=== PATIENT | female | born 1955 | race Two or more races ===

== ENCOUNTER 2018-08-02 12:19 | Day surgery (SDC) | payer OTHER ==
[2018-08-02 12:43] VITALS: BMI 27.2
[2018-08-02] MEDS ORDERED: ACETAMINOPHEN 325 MG TABLET (FP) PO PRN (14:01)
[2018-08-02] MEDS ORDERED: LIDOCAINE HCL 1%, 10 MG/ML (20ML VIAL) ONE (15:38)
[2018-08-02] MEDS ORDERED: MIDAZOLAM HCL 2 MG/2 ML SINGLE DOSE VIAL ONE (15:39)
[2018-08-02] MEDS ORDERED: PROPOFOL 20 ML ONE ×2 (15:39→16:50)
[2018-08-02] MEDS ORDERED: ceFAZolin SODIUM 1 GM VIAL ONE (16:04)
[2018-08-02] MEDS ORDERED: ceFAZolin SODIUM 1 GM VIAL IVPB ONE (16:07)
[2018-08-02] MEDS ORDERED: LIDOCAINE HCL 1%, 10 MG/ML (20ML VIAL) INF ONE (16:27)
--- NOTE | 2018-08-02 17:16 | OP ---
Operative Note - Note: Operative Date: 08/02/18 Pre-Operative Diagnosis: neurogenic bladder Operation: medronics bladder neurostimulator placement Implants: medronics bladder stimulator and lead Post-Operative Diagnosis: Same as Pre-op Anesthesia: Local, Fractional Estimated Blood Loss (mls): 20 Drains, Volume Out (mls): 0 Blood Volume Replaced (mls): 0 Fluid Volume Replaced (mls): 0 Operative Report Dictated: Yes
[2018-08-02] MEDS ORDERED: ONDANSETRON 4 MG/2 ML VIAL IVPUSH PRN (17:17)
[2018-08-02] MEDS ORDERED: oxyCODONE HCL 5 MG TABLET PO PRN (17:17)
[2018-08-02] MEDS ORDERED: LACTATED RINGERS SOLUTION 1,000 ML IV SCH (17:30)
[2018-08-02] MEDS ORDERED: ACETAMINOPHEN 1000 MG/100 ML VIAL (NON FORMULARY) IVPB ONE ×2 (17:45→19:00)
[2018-08-02] MEDS ORDERED: ACETAMINOPHEN INJECTION 100 ML IVPB ONE (17:49)
[2018-08-02 18:24] VITALS: PULSE 89
[2018-08-02 19:30] VITALS: BP 138/70; TEMP 98
--- NOTE | 2018-08-02 20:09 | HP ---
DATE OF ADMISSION: 08/02/2018 Patient is a 62-year-old female with history of micturition disorder including frequency, urgency, urgency incontinence, nocturia, hesitancy, and stranguria. Patient underwent an urodynamic evaluation which revealed a spastic type of neurogenic bladder. She did have a peripheral nerve stimulation placement in the office, and after 2 weeks, she had significant improvement. Therefore, she is admitted for permanent implantation of a sacral neurostimulator. The patient does have diabetes and high blood pressure. She has undergone a cholecystectomy as well as an appendectomy. She denies ethanolism, tobacco, or allergies. She is G4, P4, postmenopausal. Presently, the patient is on Paxil as well as gabapentin and Januvia medications. PHYSICAL EXAMINATION: General: Revealed a well-developed, adult female in no apparent distress. Lungs: Clear. Heart: Regular. Abdomen: Soft. No CVA tenderness. No hepatosplenomegaly. Genitalia: Revealed atrophic vaginitis with a grade 1 cystocele/rectocele. Miguel test is negative. No pelvic masses were palpated. IMPRESSION AT PRESENT: Micturition disorder with urinary frequency, urgency, and hesitancy. PLAN: Is for sacral nerve stimulator implantation. Patient is aware and agrees. Lidia [id number]
--- NOTE | 2018-08-02 21:40 | OP ---
DATE OF OPERATION: 08/02/2018 PREOPERATIVE DIAGNOSES: Micturition disorder, neurogenic bladder. POSTOPERATIVE DIAGNOSES: Micturition disorder, neurogenic bladder. OPERATIVE PROCEDURE: Implantation of sacral nerve stimulation battery and lead, as per [employer]. ANESTHESIA: Fractional and local. Under fractional anesthesia, the patient was placed in the prone position. After proper measurements, sacral root 2 was isolated and a cannula was placed through the sacral nerve root. After proper stimulation and positive toe-twitching and positive sign, a pocket was made in the right supragluteal region of the lower back. This was approximately 6 cm in transverse length and 4 cm in depth. The lead, which was implanted into sacral root 2, was subcutaneously tunneled to the area of the pocket. The lead was then connected to the battery and the battery was inserted inside the supragluteal pocket. The wound was irrigated with antibiotic solution and closed with 2 layers of 3-0 Vicryl suture ligature and skin ladi. Pressure dressing was applied. The patient tolerated the procedure well. She returned to the recovery room in good condition. Lidia [id number]
== END 2018-08-02 19:30 | disposition home or self-care (01) ==
LOC: JASU-SURG 12:19
PROVIDERS: ATTEND Urology
PROC: 01HY0MZ Insertion of Neurostimulator Lead into Peripheral Nerve, Open Approach (ICD-10-PCS; 2018-08-02)
PROC: 0JH70BZ Insertion of Single Array Stimulator Generator into Back Subcutaneous Tissue and Fascia, Open Approach (ICD-10-PCS; principal; 2018-08-02 14:00)
DX: N39.41 Urge incontinence (principal); N31.9 Neuromuscular dysfunction of bladder, unspecified; R35.0 Frequency of micturition
CPT/HCPCS: 64581; 64590; C1767; C1778; 82962; 94760; J0131

== ENCOUNTER 2019-09-26 14:40 | Inpatient (IN) | payer OTHER ==
--- NOTE | 2019-09-26 14:54 | PDOC ---
*Physical Exam - Physical Exam General Appearance: Yes: Nourished, Appropriately Dressed HEENT: positive: Normal Voice, Hearing Grossly Normal Neck: positive: Trachea midline, Supple Respiratory/Chest: positive: Lungs Clear Cardiovascular: positive: Tachycardia Gastrointestinal/Abdominal: positive: Normal Bowel Sounds, Soft, Other (epigastric TTP). 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 Back (PGY-I) and Dr. Rich (Attending) 64 y/o female with a PMH of HTN, IDDM here with 2 day h/o abdominal pain. Pain is epigastric, post prandial associated with NBNB emesis H/o cholecystectomy. No dysuria/hematuria, diarrhea/constipation, fevers/chills. Patient was evaluated by PMD, Dr. Moss this morning and reports CXR with changes concerning for COVID-19 PE as documented in PE section of EMR including Tachycardic to 140's and epigastric TTP w/o peritoneal sign Frontal diagnosis: PUD/GERD, r/o ACS, also consider acute abdomen including early appendicitis, colitis, bowel perforation, SBO Will obtain CTAP, chest CT (patient's PMD reports CXR w/COVID like changes), COVID-19 labs. IV fluids + rectal temp pending Reassess. 09/26/19 16:12 Leukocytosis (20) - will treat with broad spectrum Abx as infectious source pending Lactic Acidosis 2.2 PO K+ replacement UA clean VSS 09/26/19 18:29 [address]; will plan for admission - labs possibly indicative of COVID-19 (CRP, leukocytosis), however also consider unrelated abdominal pathology Patient to be signed out to Dr. Diaz (Attending) for further management. Discharge - Discharge Information Problems reviewed: Yes Clinical Impression/Diagnosis: Epigastric pain, Dehydration Condition: Fair - Follow up/Referral Referrals: Juni Moss MD [Primary Care Provider] - - Patient Discharge Instructions - Post Discharge Activity
[2019-09-26] MEDS ORDERED: LACTATED RINGERS SOLUTION 1,000 ML/1,000 ML INFUS.BAG IV STA (15:02)
[2019-09-26] MEDS ORDERED: MAG HYDROX/AL HYDROX/SIMETH 30 ML UNIT-DOSE CUP PO ONE (15:04)
[2019-09-26] MEDS ORDERED: FAMOTIDINE 20 MG/50 ML IVPB 20 MG/50 ML MG IVPB ONE ×2 (15:04→17:18)
--- NOTE | 2019-09-26 15:10 | PDOC ---
History of Present Illness - General Chief Complaint: Tachycardia Stated Complaint: Tachycardia Time Seen by Provider: 09/26/19 15:04 History Source: Patient - History of Present Illness Initial Comments: 09/26/19 15:11 64F w/hx HTN, DM BIBEMS from physician office (Dr. Juni Moss) after heart rate was found to be in the 140s. She reports two days of acute onset nausea, vomiting, epigastric pain. 8/10 cramping, localized to anterior epigastric area, worsens postprandial. She reports difficulty tolerating po due to nausea, worsening of pain with po intake. She reports lightheadedness last night that have since resolved. She denies any weakness, palpitations, chest pain, sob, confusion. She reports x2 nbnb vomiting today. Remote hx cholecystectomy. Past History - Medical History Allergies/Adverse Reactions: Allergies Allergy/AdvReac Type Severity Reaction Status Date / Time No Known Drug Allergies Allergy Verified 08/02/18 12:32 Home Medications: Ambulatory Orders Acyclovir [Zovirax -] 400 mg PO BID 02/08/15 Amitriptyline HCl [Elavil -] 10 mg PO DAILY 02/08/15 Gabapentin 600 mg PO TID 02/08/15 Insulin (Levemir) [Levemir Flexpen -] 45 units SQ BID 02/08/15 Insulin Aspart [Novolog] 0 unit SQ ASDIR 02/08/15 Meloxicam [Mobic (Nf) -] 15 mg PO DAILY 02/08/15 Paroxetine HCl 40 mg PO DAILY 02/08/15 Tofacitinib Citrate [Xeljanz] 5 mg PO DAILY 02/08/15 Upadacitinib [Rinvoq ER] 15 mg PO DAILY 09/27/19 Anemia: No Asthma: No Cancer: No Cardiac Disorders: No CVA: Yes (NO RESIDULA) COPD: No CHF: No Dementia: No Diabetes: Yes GI Disorders: Yes (REFLUX, CONSTIPATION) Disorders: Yes (INCONTINENCE, S/P BLADDER LIFT) HTN: No Hypercholesterolemia: Yes Liver Disease: No Seizures: No Thyroid Disease: No - Surgical History Abdominal Surgery: No Appendectomy: Yes Cardiac Surgery: No Cholecystectomy: Yes Lung Surgery: No Neurologic Surgery: No Orthopedic Surgery: No - Psycho-Social/Smoking History Smoking History: Never smoked Have you smoked in the past 12 months: No Information on smoking cessation initiated: No - Substance Abuse Hx (Audit-C & DAST Scrn) How often the patient has a drink containing alcohol: Never Score: In Men: 4 or > Positive; In Women: 3 or > Positive: 0 Screen Result (Pos requires Nsg. Audit-10AR): Negative In the last yr the pt used illegal drug/Rx for NonMed reason: No Score: Yes response is considered Positive: 0 Screen Result (Positive result requires Nsg. DAST-10): Negative Review of Systems - Review of Systems Able to Perform ROS?: Yes Comments:: 09/26/19 15:26 GENERAL/CONSTITUTIONAL: No fever or chills. No weakness. HEAD, EYES, EARS, NOSE AND THROAT: No change in vision. No ear pain or dischar ge. No sore throat. CARDIOVASCULAR: No chest pain or shortness of breath RESPIRATORY: No cough, wheezing, or hemoptysis. GASTROINTESTINAL: Nausea, vomiting, abdominal pain. No diarrhea or constipation. GENITOURINARY: No dysuria, frequency, or change in urination. MUSCULOSKELETAL: No joint or muscle swelling or pain. No neck or back pain. SKIN: No rash NEUROLOGIC: No headache, vertigo, loss of consciousness, or change in strength/sensation. ENDOCRINE: No increased thirst. No abnormal weight change HEMATOLOGIC/LYMPHATIC: No anemia, easy bleeding, or history of blood clots. ALLERGIC/IMMUNOLOGIC: No hives or skin allergy. *Physical Exam - Vital Signs Last Vital Signs Temp Pulse Resp BP Pulse Ox 98.9 F 144 H 19 124/80 100 09/26/19 14:44 09/26/19 14:44 09/26/19 14:44 09/26/19 14:44 09/26/19 14:44 - Physical Exam 09/26/19 15:26 GENERAL: Awake, alert, and fully oriented, in no acute distress HEAD: No signs of trauma, normocephalic, atraumatic EYES: PERRLA, EOMI, sclera anicteric, conjunctiva clear ENT: Auricles normal inspection, hearing grossly normal, nares patent, eusebio pharynx clear without exudates. Moist mucosa NECK: Normal ROM, supple, no lymphadenopathy, JVD, or masses LUNGS: No distress, speaks full sentences, clear to auscultation bilaterally HEART: Tachycardic. Regular rhythm, normal S1 and S2, no murmurs, rubs or gallops, peripheral pulses normal and equal bilaterally. ABDOMEN: Generalized mild tenderness, worse in epigastrum. Normoactive bowel sounds. No guarding, no rebound. No masses EXTREMITIES : Normal inspection, Normal range of motion, no edema. No clubbing or cyanosis NEUROLOGICAL: Cranial nerves II through XII grossly intact. Normal speech, normal gait, no focal sensorimotor deficits SKIN: Warm, Dry, normal turgor, no rashes or lesions noted ED Treatment Course - LABORATORY CBC & Chemistry Diagram: 09/29/19 06:10 09/29/19 06:10 Medical Decision Making - Medical Decision Making 09/26/19 16:13 64F w/hx HTN, DM p/w two days of chills, nausea, vomiting, epigastric pain/tenderness, found to be tachycardic to 140s by PCP, sinus tach on our EKG. Ddx GERD/PUD, ACS, pancreatitis. Dehydration likely cause of tachycardia. Plan: CBC CMP EKG CXR Lipase Cardiac profile Blood cultures CT abdomen/pelvis w/contrast CT Chest pepcid maalox 1L LR Dispo: Pending imaging, reassessment Discharge - Discharge Information Problems reviewed: Yes Clinical Impression/Diagnosis: UTI (urinary tract infection), Sepsis Condition: Fair - Follow up/Referral - Patient Discharge Instructions - Post Discharge Activity
[2019-09-26 16:04] LABS: BASO % 0.2 % (0-2.0); EOS % 0.1 % (0-4.5); HEMATOCRIT 39.5 % (32.4-45.2); HEMOGLOBIN 13.1 GM/dL (10.7-15.3); LYMPH % 3.2 % (8-40); MCH 30.5 pg (25.7-33.7); MCHC 33.1 g/dl (32.0-36.0); MEAN CELL VOLUME 92.1 fl (80-96); MEAN PLT VOLUME 9.2 fl (7.5-11.1); MONO % 4.9 % (3.8-10.2); NEUT % 91.6 % (42.8-82.8); PLATELET COUNT 264 K/MM3 (134-434); RBC 4.28 M/mm3 (3.60-5.2); RDW 16.1 % (11.6-15.6); WHITE BLOOD COUNT 20.5 K/mm3 (4.0-10.0)
[2019-09-26 16:10] LABS: INR 1.06 (0.83-1.09); PROTHROMBIN TIME (PATIENT) 12.5 SEC (9.7-13.0)
[2019-09-26 16:12] LABS: VENOUS BASE EXCESS -3.5 mmol/L (-2-2); VENOUS PC02 36.1 mmHg (38-52); VENOUS PH 7.38 (7.31-7.41); VENOUS PO2 < 49 mmHg (28-48)
[2019-09-26 16:13] LABS: ACTIVATED PTT 28.1 SECONDS (25.2-36.5)
--- NOTE | 2019-09-26 16:18 | PDOC ---
Attending Attestation - Resident Resident Name: Anamaria Backan - ED Attending Attestation I have performed the following: I have examined & evaluated the patient, The case was reviewed & discussed with the resident, I agree w/resident's findings & plan - HPI HPI: 09/26/19 16:11 64y/o HTN, IDDM, h/o ita sent from Dr. Moss office after found tachycardic in setting of 3d progressive epigastric pain wth n/v. Pt reports 3d post- prandial upper abdominal pain associated with nausea and nonbloody emesis, chills but no fever, dark stool but no diarrhea/constipation. no chest pain/sob, + palpitations and light headedness. no complaints. no recent diet change, no travel, no leg swelling. no h/o recurring GI issues, had EGD and c-scope within last year, reportedly normal - Physicial Exam PE: 09/26/19 16:14 tachycardia, BP stable, o2 100% room air dry mucosa, no jaundice/pallor neck supple. conversant, nad s1s2 reg tachy ctab abd distended but soft, epigastric tenderness without guarding/rebound. BS wnl. no cvat no edema no rash POCUS echo without effusion or RV strain, hyperdynamic - Critical Care Time Total Critical Care Time: 30 Critical Care Statement: The care of this patient involved high complexity decision making to prevent further life threatening deterioration of the patient's condition and/or to evaluate & treat vital organ system(s) failure or risk of failure. - Medical Decision Making 09/26/19 16:15 64y/o F HTN, DM with post-prandial epigastric pain for 3d, now with tachycardia likely 2/2 dehydration, r/o sepsis. ? pancreatitis/gastritis, ? mesenteric ischemia, less likely primary cardiac, low clinical suspicion for PE but reassess tachycardia after hydration. labs, ua ekg ct chest/abd/pel iv fluid rehydration pain control reassess and likely admission 09/26/19 16:26 leukocytosis 20. remaining labs and imaging pending. Heart Score/ECG Review #1 ECG reviewed & interpreted by me at: 15:00 General ECG Interpretation: Sinus Rhythm (tachy at 142), Normal Intervals (qtc 446), No acute ischemic changes Discharge - Discharge Information Problems reviewed: Yes Clinical Impression/Diagnosis: Epigastric pain, Dehydration Condition: Fair - Follow up/Referral Referrals: Juni Moss MD [Primary Care Provider] - - Patient Discharge Instructions - Post Discharge Activity
[2019-09-26 16:43] LABS: LDH 188 U/L (84-246)
[2019-09-26 16:44] LABS: ALBUMIN 3.9 g/dl (3.4-5.0); ALK PHOS 143 U/L (45-117); ANION GAP 11 MMOL/L (8-16); BILIRUBIN,DIRECT 0.2 mg/dL (0.0-0.2); BILIRUBIN,TOTAL 0.6 mg/dL (0.2-1); BLOOD UREA NITROGEN 11.1 mg/dL (7-18); CALCIUM 8.8 mg/dL (8.5-10.1); CHLORIDE 100 mmol/L (98-107); CO2 23 mmol/L (21-32); CREATININE 0.8 mg/dL (0.55-1.3); GLUCOSE,RANDOM 180 mg/dL (74-106); POTASSIUM 3.4 mmol/L (3.5-5.1); SGOT/AST 16 U/L (15-37); SGPT/ALT 25 U/L (13-61); SODIUM 134 mmol/L (136-145); TOT PROT 7.9 g/dl (6.4-8.2)
[2019-09-26] MEDS ORDERED: MAG HYDROX/AL HYDROX/SIMETH 30 ML UNIT-DOSE CUP ONE (17:18)
[2019-09-26] MEDS ORDERED: ACETAMINOPHEN 1000 MG/100 ML VIAL (NON FORMULARY) IVPB ONE (17:41)
[2019-09-26 18:01] LABS: LIPASE 82 U/L (73-393)
[2019-09-26 18:19] LABS: URINE APPEARANCE CLEAR; URINE BILIRUBIN NEGATIVE (NEGATIVE); URINE COLOR YELLOW; URINE GLUCOSE (UA) NEGATIVE (NEGATIVE); URINE KETONE NEGATIVE (NEGATIVE); URINE LEUK ESTERASE TRACE (NEGATIVE); URINE NITRITE NEGATIVE (NEGATIVE); URINE PROTEIN NEGATIVE (NEGATIVE)
[2019-09-26] MEDS ORDERED: VANCOMYCIN HCL 1,500 MG in DEXTROSE 5%-WATER - 500 ML IVPB ONE (18:34)
[2019-09-26] MEDS ORDERED: POTASSIUM CHLORIDE ORAL LIQUID 20 MEQ/15 ML PO ONE (18:36)
[2019-09-26] MEDS ORDERED: PIPERACILLIN/TAZOB 4.5 GM 4.5 GM in DEXTROSE 5%-WATER 100 ML IVPB ONE (18:38)
[2019-09-26] MEDS ORDERED: POTASSIUM CHLORIDE ORAL LIQUID 20 MEQ/15 ML ONE (18:57)
[2019-09-26] MEDS ORDERED: ACETAMINOPHEN INJECTION 100 ML IVPB ONE (18:57)
[2019-09-26 19:05] LABS: EPI CELLS 2.6 /uL (0-25.1); URINE BACTERIA 41691.7 /uL (0-1359); URINE WBC 17.4 /uL (0-25.8)
--- NOTE | 2019-09-26 19:19 | PDOC ---
ED Treatment Course - LABORATORY CBC & Chemistry Diagram: 09/29/19 06:10 09/29/19 06:10 - Medications Given in the ED: ED Medications Discontinued Medications Generic Name Dose Route Start Last Admin Trade Name Christopher PRN Reason Stop Dose Admin Acetaminophen 1,000 mg 09/26/19 17:41 09/26/19 19:11 Ofirmev Injection - IVPB 09/26/19 17:42 1,000 mg ONCE ONE Administration Al Hydroxide/Mg Hydroxide 30 ml 09/26/19 15:04 09/26/19 17:10 Mylanta Oral Suspension - PO 09/26/19 15:05 30 ml ONCE ONE Administration Lactated Ringer's 1,000 ml in 1,000 mls @ 1,000 mls/hr 09/26/19 15:02 09/26/19 15:05 Lactated Ringers Solution IV 09/26/19 16:01 1,000 mls/hr ONCE STA Administration Famotidine/Sodium Chloride 20 mg in 50 mls @ 100 mls/hr 09/26/19 15:04 09/26/19 17:10 Pepcid 20 Mg Premixed Ivpb - IVPB 09/26/19 15:33 100 mls/hr ONCE ONE Administration Medical Decision Making - Medical Decision Making Pt signed out from day team, see prior providers note. 64 year old female with PMH HTN, DM BIBA to ED for nausea/vomiting/epigastric pain, found to be tachycardic at outpatient office, sent to ED for evaluation. Initial Vital Signs Pulse Resp BP Pulse Ox 144 H 19 124/80 99 09/26/19 14:41 09/26/19 14:41 09/26/19 14:41 09/26/19 14:41 Laboratory Last Values WBC 20.5 K/mm3 (4.0-10.0) H 09/26/19 15:40 RBC 4.28 M/mm3 (3.60-5.2) 09/26/19 15:40 Hgb 13.1 GM/dL (10.7-15.3) 09/26/19 15:40 Hct 39.5 % (32.4-45.2) 09/26/19 15:40 MCV 92.1 fl (80-96) 09/26/19 15:40 MCH 30.5 pg (25.7-33.7) 09/26/19 15:40 MCHC 33.1 g/dl (32.0-36.0) 09/26/19 15:40 RDW 16.1 % (11.6-15.6) H 09/26/19 15:40 Plt Count 264 K/MM3 (134-434) 09/26/19 15:40 MPV 9.2 fl (7.5-11.1) 09/26/19 15:40 Absolute Neuts (auto) 18.8 K/mm3 (1.5-8.0) H 09/26/19 15:40 Neutrophils % 91.6 % (42.8-82.8) H 09/26/19 15:40 Neutrophils % (Manual) 87.9 % (42.8-82.8) H 09/26/19 15:40 Band Neutrophils % 0.0 % 09/26/19 15:40 Lymphocytes % 3.2 % (8-40) L 09/26/19 15:40 Lymphocytes % (Manual) 3.0 % (8-40) L 09/26/19 15:40 Monocytes % 4.9 % (3.8-10.2) 09/26/19 15:40 Monocytes % (Manual) 7 % (3.8-10.2) 09/26/19 15:40 Eosinophils % 0.1 % (0-4.5) 09/26/19 15:40 Eosinophils % (Manual) 1.0 % (0-4.5) 09/26/19 15:40 Basophils % 0.2 % (0-2.0) 09/26/19 15:40 Basophils % (Manual) 0.0 % (0-2.0) 09/26/19 15:40 Myelocytes % (Man) 0 % (0-2) 09/26/19 15:40 Promyelocytes % (Man) 0 % (0-2) 09/26/19 15:40 Blast Cells % (Manual) 0 % (0-0) 09/26/19 15:40 Nucleated RBC % 0 % (0-0) 09/26/19 15:40 Metamyelocytes 0 % (0-2) 09/26/19 15:40 PT with INR 12.50 SEC (9.7-13.0) 09/26/19 15:40 INR 1.06 (0.83-1.09) 09/26/19 15:40 PTT (Actin FS) 28.1 SECONDS (25.2-36.5) 09/26/19 15:40 VBG pH 7.38 (7.31-7.41) 09/26/19 15:40 POC VBG pCO2 36.1 mmHg (38-52) L 09/26/19 15:40 POC VBG pO2 < 49 mmHg (28-48) H 09/26/19 15:40 VBG HCO3 20.9 mmol/L (23-29) L 09/26/19 15:40 VBG O2 Sat (Victoriano) 47.8 % (70-80) L 09/26/19 15:40 VBG Base Excess -3.5 mmol/L (-2-2) L 09/26/19 15:40 Sodium 134 mmol/L (136-145) L 09/26/19 15:40 Potassium 3.4 mmol/L (3.5-5.1) L 09/26/19 15:40 Chloride 100 mmol/L (98-107) 09/26/19 15:40 Carbon Dioxide 23 mmol/L (21-32) 09/26/19 15:40 Anion Gap 11 MMOL/L (8-16) 09/26/19 15:40 BUN 11.1 mg/dL (7-18) 09/26/19 15:40 Creatinine 0.8 mg/dL (0.55-1.3) 09/26/19 15:40 Est GFR (CKD-EPI)AfAm 90.30 09/26/19 15:40 Est GFR (CKD-EPI)NonAf 77.91 09/26/19 15:40 POC Glucometer 193 UNITS (80-120) 09/26/19 15:10 Random Glucose 180 mg/dL (74-106) H 09/26/19 15:40 Lactic Acid 2.2 mmol/L (0.4-2.0) H* 09/26/19 15:40 Calcium 8.8 mg/dL (8.5-10.1) 09/26/19 15:40 Ferritin 10.4 ng/ml (8-388) 09/26/19 15:40 Total Bilirubin 0.6 mg/dL (0.2-1) 06/16/20 15:40 Direct Bilirubin 0.2 mg/dL (0.0-0.2) 09/26/19 15:40 AST 16 U/L (15-37) 09/26/19 15:40 ALT 25 U/L (13-61) 09/26/19 15:40 Alkaline Phosphatase 143 U/L (45-117) H 09/26/19 15:40 LD Total 188 U/L (84-246) 09/26/19 15:40 Creatine Kinase 135 U/L (26-192) 09/26/19 15:40 Troponin I < 0.02 ng/ml (0.00-0.05) 09/26/19 15:40 C-Reactive Protein 0.4 MG/DL (0.00-0.3) H 09/26/19 15:40 Total Protein 7.9 g/dl (6.4-8.2) 09/26/19 15:40 Albumin 3.9 g/dl (3.4-5.0) 09/26/19 15:40 Lipase 82 U/L (73-393) 09/26/19 15:40 Urine Color Yellow 09/26/19 17:20 Urine Appearance Clear 09/26/19 17:20 Urine pH 6.0 (5.0-8.0) 09/26/19 17:20 Ur Specific Marshall 1.005 (1.010-1.035) L 09/26/19 17:20 Urine Protein Negative (NEGATIVE) 09/26/19 17:20 Urine Glucose (UA) Negative (NEGATIVE) 09/26/19 17:20 Urine Ketones Negative (NEGATIVE) 09/26/19 17:20 Urine Blood Negative (NEGATIVE) 09/26/19 17:20 Urine Nitrite Negative (NEGATIVE) 09/26/19 17:20 Urine Bilirubin Negative (NEGATIVE) 09/26/19 17:20 Urine Urobilinogen 1.0 mg/dL (0.2-1.0) 09/26/19 17:20 Ur Leukocyte Esterase Trace (NEGATIVE) 09/26/19 17:20 Urine WBC (Auto) 17.4 /uL (0-25.8) 09/26/19 17:20 Urine RBC (Auto) 2.0 /uL (0-23.9) 09/26/19 17:20 U Epithel Cells (Auto) 2.6 /uL (0-25.1) 09/26/19 17:20 Urine Bacteria (Auto) 99298.7 /uL (0-1359) 09/26/19 17:20 Leukocytosis with left shift -Pt was given Vanco/Zosyn No anemia. pH normal. Mild hyponatremia, hypokalemia. -IVF given Lactic acidosis -IVF given -Repeat after fluid bolus AST/ALT normal Troponin undetectable UTI 09/26/19 20:01 Laboratory Tests 09/26/19 09/26/19 15:40 19:00 Lactic Acid 2.2 H* 2.2 H* Pt had only received 1L NS when second lactate was drawn. 1L LR was ordered after this was sent off. 09/26/19 20:28 CT report: Top of Form 1 Bottom of Form [address] ABDOMEN & PELVIS CT WITH CONTR Show Printer-Friendly Version Patient Name: Sarkis Jacobs : 1955 ID: [id number] Study Date: 26-Sep-2019 18:34 [facility] Name: SARKIS JACOBS DEPARTMENT OF RADIOLOGY Phys: Mehrdad Back RESIDENT : 1955 Age: 64 Sex: F [facility] Acct: [id number] Loc: [address] Exam Date: 09/26/19 Status: DONOVAN [id number] [id number] Unit Number: [id number] EXAM#: TYPE/EXAM: RESULT: CT/ABDOMEN PELVIS CT WITH CONTR CT/CHEST CT WITH CONTRAST CHEST CT without contrast Clinical information given: epigastric abdominal pain Multiplanar imaging was performed following the intravenous administration of nonionic contrast. Patchy infiltrates are seen within the right upper lobe anterior segment as well as within the right middle lobe medial and lateral segments. No pleural effusion is noted. A small right basilar pulmonary calcification is noted probably representing a granuloma. A small to moderate hiatal hernia has developed in comparison to a 2009 CT exam. There is no definite cardiac enlargement. No pericardial effusion is seen. No definite lymphadenopathy is identified. The trachea and central bronchi demonstrate no obvious pathology. There is no aortic aneurysm. A 0.8 cm nodule is visualized within the left thyroid lobe posteriorly. This finding is difficult to visualize on the previous exam which was performed without intravenous contrast. IMPRESSION: Right upper and middle lobe infiltrates are noted - ? bacterial pneumonitis versus atypical appearance of COVID-19 pneumonitis. Small to moderate hiatal hernia. A 0.8 cm left lower lobe nodule is noted posteriorly. Sonographic correlation is suggested. ABDOMEN AND PELVIS CT with intravenous contrast Clinical information given: epigastric abdominal pain, nausea, elevated white blood count Multiplanar imaging was performed following the intravenous administration of nonionic contrast. Enteric contrast was not administered. No evidence of pneumoperitoneum, abscess, free intraperitoneal fluid or bowel obstruction. What appears to represent the appendix demonstrates a mildly thickened appear ance adjacent to the inferior border of the cecum (transaxial images 112 - 117). No definite periap pendiceal edema fluid is identified. No prior abdomen/pelvic CT exam is available at this facility for direct comparison. Colonic diverticulosis is seen without definite evidence of acute diverti culitis. No gross small bowel pathology is noted allowing for lack of intraluminal contrast. An approximately 0.8 x 0.4 cm calcification is seen along the left periurethral region and probably less likely within the urethra itself (transaxial images 147 - 150). The urinary bladder is mildly overdistended. There is probable diffuse fatty infiltration of the liver. Status post cholecystectomy as on a chest CT exam performed in 2009. Also as on the 2010 CT exam a small amount of pneumobilia is seen which is apparently postprocedural in nature. The spleen, pancreas, adrenal glands and kidneys demonstrate no discrete pathology. There is no aortic aneurysm. No definite lymphadenopathy is noted on the basis of size. An InterStim device is seen traversing the right sacrum. IMPRESSION: No definite CT pathology is noted within the upper abdomen. There is possible mild appendiceal thickening without CT evidence of acute appendicitis at this time. Correlate clinically. Direct comparison with previous CT exams would be quite helpful available from a different facility. Surgical consultation is suggested, nonemergent unless otherwise clinically indicated. Status post cholecystectomy. A small amount of pneumobilia is seen which is presumably postprocedural in nature. Colonic diverticulosis is noted without evidence of acute diverticulitis. A 0.8 x 0.4 cm left periurethral calcification is noted, less likely being located within the urethra itself. Correlate clinically. There is mild urinary bladder overdistention which may be physiologic in nature versus secondary to mild/early retention. If clinically indicated correlate with pre and post void sonography. Probable diffuse hepatic steatosis. A pelvic InterStim device is seen in place. Reported By: Teja Blackman MD 09/26/192022 Mehrdad Back RESIDENT Technologist: Jareth Collins Transcribed Date/Time: 09/26/192022 Apprenticeship Consultant: Teja Blackman Printed Date/Time: By: Signed by: Teja Blackman Signed on: 26-Sep-2019 20:24 Surgery consult placed for appendix thickening. 09/26/19 20:31 Dr. Chambers paged. Discharge - Discharge Information Problems reviewed: Yes Clinical Impression/Diagnosis: UTI (urinary tract infection), Sepsis Condition: Fair - Admission Yes - Follow up/Referral - Patient Discharge Instructions - Post Discharge Activity
[2019-09-26] MEDS ORDERED: LACTATED RINGERS SOLUTION 1000 ML INFUS.BAG IV ONE (19:20)
[2019-09-26] MEDS ORDERED: PIPERACILLIN/TAZOB 4.5 GM 4.5 GM/100 ML BAG IVPB ONE (19:22)
[2019-09-26] MEDS ORDERED: ACETAMINOPHEN 325 MG TABLET (FP) PO PRN (23:54)
[2019-09-27] MEDS ORDERED: ACETAMINOPHEN 1000 MG/100 ML VIAL (NON FORMULARY) IVPB PRN (00:33)
[2019-09-27] MEDS: DEXTROSE 5%-0.45% SALINE 1,000 ML IV SCH (00:44)
[2019-09-27] MEDS: MORPHINE SULFATE 2 MG/ML VIAL IVPUSH PRN ×3 (00:58→17:24)
[2019-09-27] MEDS ORDERED: DEXTROSE 5%-WATER - 50 ML IVPB ONE ×3 (02:32→17:04)
[2019-09-27] MEDS ORDERED: PIPERACILLIN/TAZOBACTAM 3.375 GM VIAL IVPB ONE ×3 (02:32→17:04)
[2019-09-27] MEDS: PIPERACILLIN/TAZOB 3.375 GM 3.375 GM in DEXTROSE 5%-WATER - 50 ML IVPB SCH ×4 (03:09→17:24)
[2019-09-27] MEDS: GABAPENTIN 300 MG CAPSULE PO SCH ×4 (05:41→21:18)
[2019-09-27] MEDS ORDERED: PATIENT'S OWN MEDICATION (NON-FORMULARY) (Gabapentin [Gabapentin] 600 MG) PO SCH (06:00)
[2019-09-27] MEDS: INSULIN SLIDING SCALE (NOVOLOG) 1 VIAL SQ SCH ×4 (06:09→21:00)
[2019-09-27 07:16] LABS: BASO % 0.2 % (0-2.0); EOS % 0.3 % (0-4.5); HEMATOCRIT 36.2 % (32.4-45.2); LYMPH % 9.7 % (8-40); MCH 30.4 pg (25.7-33.7); MCHC 33.1 g/dl (32.0-36.0); MEAN CELL VOLUME 91.9 fl (80-96); MEAN PLT VOLUME 8.7 fl (7.5-11.1); MONO % 5.9 % (3.8-10.2); NEUT % 83.9 % (42.8-82.8); PLATELET COUNT 259 K/MM3 (134-434); RBC 3.94 M/mm3 (3.60-5.2); RDW 15.8 % (11.6-15.6); WHITE BLOOD COUNT 15.6 K/mm3 (4.0-10.0)
[2019-09-27] MEDS: ONDANSETRON 4 MG/2 ML VIAL IVPUSH PRN ×3 (07:33→20:10)
[2019-09-27 07:38] LABS: ALBUMIN 3.3 g/dl (3.4-5.0); BILIRUBIN,TOTAL 0.9 mg/dL (0.2-1); BLOOD UREA NITROGEN 6.6 mg/dL (7-18); CALCIUM 8.8 mg/dL (8.5-10.1); CREATININE 0.8 mg/dL (0.55-1.3); POTASSIUM 3.7 mmol/L (3.5-5.1); TOT PROT 6.8 g/dl (6.4-8.2)
--- NOTE | 2019-09-27 07:43 | PN ---
Progress Note (short form) - Note Progress Note: PULMONARY CONSULTATION DICTATED 09/27/19
[2019-09-27] MEDS: PARoxetine HCL 20 MG TABLET PO SCH (09:04)
[2019-09-27] MEDS: HEPARIN NA (PORCINE) 5,000 UNITS/ML 1ML VIAL SQ SCH ×2 (09:05→21:18)
--- NOTE | 2019-09-27 09:12 | CONSULT ---
- Consultation REQUESTING PROVIDER: CONSULT REQUEST: We have been asked to surgically evaluate this patient for thickened appendix. PCP:Yudith Chambers HISTORY OF PRESENT ILLNESS: The patient is a 64 yo female who presented to the ER from Dr. Moss for tachycardia while being seen in the office. She has been having nausea and emesis since Wednesday with epigastric pain. She vomited this am as well, non-bloody. She gives no history of ulcerative disease. Her last BM was on Wednesday non-bloody. She has had a normal colonoscopy in the past. She denies any fever/CP some back pain with breathing deep which started Wednesday no SOB. C/o fevers. She has a history of lap ita and an appendectomy. She complains of painful urination/no hematuria. PMHx: HTN, DM, arthritis , fibromyalgia, genital herpes PSHx: h/o lap ita, bladder neurostim 07/29, temporal arter biopsy 01/24, h/o appendectomy and h/o ovarian procedure Home Medications Medication Instructions Recorded Acyclovir [Zovirax -] 400 mg PO BID 02/08/15 Amitriptyline HCl [Elavil -] 10 mg PO DAILY 02/08/15 Gabapentin 600 mg PO TID 02/08/15 Insulin (Levemir) [Levemir Flexpen 45 units SQ BID 02/08/15 -] Insulin Aspart [Novolog] 0 unit SQ ASDIR 02/08/15 Meloxicam [Mobic (Nf) -] 15 mg PO DAILY 02/08/15 Paroxetine HCl 40 mg PO DAILY 02/08/15 Tofacitinib Citrate [Xeljanz] 5 mg PO DAILY 02/08/15 Upadacitinib [Rinvoq ER] 15 mg PO DAILY 09/27/19 Allergies Allergy/AdvReac Type Severity Reaction Status Date / Time No Known Drug Allergies Allergy Verified 08/02/18 12:32 REVIEW OF SYSTEMS: CONSTITUTIONAL: Present: fever CARDIOVASCULAR: Absent: chest pain RESPIRATORY: Absent: shortness of breath Present: back pain with deep breaths GASTROINTESTINAL: Present: abdominal pain, nausea, vomiting Absebt: melena GENITOURINARY: Absent:hematuria Present: dysuria MUSCULOSKELETAL: Present: back pain, hands HEMATOLOGIC/IMMUNOLOGIC: Absent: h/o coagulopathy/ DVT NEUROLOGIC: Present: migraines, urinary dysfunction unsteady gait Absent: Seizures PHYSICAL EXAM: GENERAL: Awake, alert, and fully oriented, in no acute distress. LUNGS: Clear to auscultation bilat anteriorly. No wheezes, and no crackles. HEART: Regular,rhythm and rate ABDOMEN: Soft, not distended, normoactive bowel sounds, no guarding, no rebound, tenderness to epigastric/suprapubic area. No RLQ tendernerss to touch. LOWER EXTREMITIES: No calf tenderness. No peripheral edema b/l PSYCH: Cooperative. Good eye contact. Appropriate mood and affect. Vital Signs Temperature 98.3 F 09/27/19 05:22 Pulse Rate 102 H 09/27/19 05:22 Respiratory Rate 20 09/27/19 08:59 Blood Pressure 109/65 09/27/19 05:22 O2 Sat by Pulse Oximetry (%) 97 09/27/19 08:59 Lab Results WBC 15.6 K/mm3 (4.0-10.0) H 09/27/19 06:27 RBC 3.94 M/mm3 (3.60-5.2) 09/27/19 06:27 Hgb 12.0 GM/dL (10.7-15.3) 09/27/19 06:27 Hct 36.2 % (32.4-45.2) 09/27/19 06:27 MCV 91.9 fl (80-96) 09/27/19 06:27 MCHC 33.1 g/dl (32.0-36.0) 09/27/19 06:27 RDW 15.8 % (11.6-15.6) H 09/27/19 06:27 Plt Count 259 K/MM3 (134-434) 09/27/19 06:27 INR 1.06 (0.83-1.09) 09/26/19 15:40 Sodium 141 mmol/L (136-145) 09/27/19 06:27 Potassium 3.7 mmol/L (3.5-5.1) 09/27/19 06:27 Chloride 108 mmol/L (98-107) H 09/27/19 06:27 Carbon Dioxide 25 mmol/L (21-32) 09/27/19 06:27 Anion Gap 8 MMOL/L (8-16) 09/27/19 06:27 BUN 6.6 mg/dL (7-18) L 09/27/19 06:27 Creatinine 0.8 mg/dL (0.55-1.3) 09/27/19 06:27 Random Glucose 126 mg/dL (74-106) H 09/27/19 06:27 Calcium 8.8 mg/dL (8.5-10.1) 09/27/19 06:27 Laboratory Tests 09/26/19 09/26/19 09/26/19 15:40 17:20 17:30 Lactic Acid Total Bilirubin 0.6 Direct Bilirubin 0.2 AST 16 ALT 25 Alkaline Phosphatase 143 H Creatine Kinase 135 Troponin I < 0.02 Urine Color Yellow Urine Appearance Clear Urine pH 6.0 Ur Specific [place] 1.005 L Urine Protein Negative Urine Glucose (UA) Negative Urine Ketones Negative Urine Blood Negative Urine Nitrite Negative Urine Bilirubin Negative Urine Urobilinogen 1.0 Ur Leukocyte Esterase Trace Urine WBC (Auto) 17.4 Urine RBC (Auto) 2.0 U Epithel Cells (Auto) 2.6 Urine Bacteria (Auto) 48424.7 COVID-19 (GEORGE) Pending 09/26/19 09/27/19 19:00 06:27 Lactic Acid 2.2 H* 1.1 Total Bilirubin Direct Bilirubin AST ALT Alkaline Phosphatase Creatine Kinase Troponin I Urine Color Urine Appearance Urine pH Ur Specific [place] Urine Protein Urine Glucose (UA) Urine Ketones Urine Blood Urine Nitrite Urine Bilirubin Urine Urobilinogen Ur Leukocyte Esterase Urine WBC (Auto) Urine RBC (Auto) U Epithel Cells (Auto) Urine Bacteria (Auto) COVID-19 (GEORGE) CT scan: pneumobilia, CT scan thickened appendix. CT scan reviewed with Dr. Stevens and what appears to be the appendix could be the stump of the appendix. (the paitent gives a history of appendectomy) which is dilated. If not the appendix then possibly a diverticulum. There are no signs of inflammation surrounding the cecum/appendix region. Distended bladder CT scan of chest: right upper lobe/middle lobe and lateral segment infiltrative process seen 64 yo female with h/o diabetes/HTN admitted with nausea and emesis/low grade temp and leukocytosis. Pt reexamined with Dr. Jones today and patient non-tender. Her CT scan was reviewed with Dr. Stevens and what appears to be the appendix could be the stump of the appendix. She has a history of appendectomy 40 years ago. She has no inflammation and clinical physical findings of appendicitis on exam. Repeat abd exam not consistent with an acute abdomen. Lactic acid improved with IV hydration. Recommend npo, pt with improved nausea after anti-emetic. Surgery to follow the patient, IV abx as per ID. blood cultures/urine cultures pending. Monitor WBC daily and electrolytes.
[2019-09-27] MEDS: AMITRIPTYLINE HCL 10 MG TABLET PO SCH (09:18)
[2019-09-27] MEDS ORDERED: PATIENT'S OWN MEDICATION (NON-FORMULARY) (Paroxetine Hcl [Paroxetine Hcl] 40 MG) PO SCH (10:00)
[2019-09-27] MEDS ORDERED: VANCOMYCIN 1 GM in D5W (PRE-DOCKED) 1,000 MG/250 ML IVPB SCH (10:00)
[2019-09-27] MEDS ORDERED: VANCOMYCIN 1 GRAM (PRE-DOCKED) 1,000 MG/250 ML BAG IVPB SCH (10:00)
--- NOTE | 2019-09-27 12:07 | CON.ID ---
Consult Consult Specialty:: infectious diseases Referred by:: Reason for Consultation:: abd pain - History of Present Illness Chief Complaint: abd pain,fever History of Present Illness: 64 y/o female with a PMH of HTN, IDDM admitted with abd pain,according to the patient she started having abd pain from wednesday and the pain has not improved pain associated with nausea and vomint,denies dirrhoea.also mentions that she was having fevers H/o cholecystectomy. No dysuria/hematuria, diarrhea/constipation, fevers/chills. workup for covid pending - History Source History Provided By: Patient Limitations to Obtaining History: Language Barrier - Past Medical History Cardio/Vascular: Yes: HTN ...: No Endocrine: Yes: Diabetes Mellitus - Alcohol/Substance Use Hx Alcohol Use: No - Smoking History Smoking history: Never smoked Have you smoked in the past 12 months: No Home Medications - Allergies Allergies/Adverse Reactions: Allergies Allergy/AdvReac Type Severity Reaction Status Date / Time No Known Drug Allergies Allergy Verified 08/02/18 12:32 - Home Medications Home Medications: Ambulatory Orders Acyclovir [Zovirax -] 400 mg PO BID 02/08/15 Amitriptyline HCl [Elavil -] 10 mg PO DAILY 02/08/15 Gabapentin 600 mg PO TID 02/08/15 Insulin (Levemir) [Levemir Flexpen -] 45 units SQ BID 02/08/15 Insulin Aspart [Novolog] 0 unit SQ ASDIR 02/08/15 Meloxicam [Mobic (Nf) -] 15 mg PO DAILY 02/08/15 Paroxetine HCl 40 mg PO DAILY 02/08/15 Tofacitinib Citrate [Xeljanz] 5 mg PO DAILY 02/08/15 Upadacitinib [Rinvoq ER] 15 mg PO DAILY 09/27/19 Review of Systems - Review of Systems Constitutional: reports: Fever Eyes: reports: No Symptoms HENT: reports: No Symptoms Neck: reports: No Symptoms Cardiovascular: reports: No Symptoms Respiratory: reports: No Symptoms Gastrointestinal: reports: Abdominal Pain Genitourinary: reports: No Symptoms Musculoskeletal: reports: No Symptoms Integumentary: reports: No Symptoms Neurological: reports: No Symptoms Endocrine: reports: No Symptoms Hematology/Lymphatic: reports: No Symptoms Psychiatric: reports: No Symptoms Physical Exam Vital Signs: Vital Signs Temperature 98.1 F 09/27/19 10:24 Pulse Rate 100 H 09/27/19 10:24 Respiratory Rate 20 09/27/19 10:24 Blood Pressure 110/68 09/27/19 10:24 O2 Sat by Pulse Oximetry (%) 97 09/27/19 08:59 Constitutional: Yes: Calm, Mild Distress Eyes: Yes: Conjunctiva Clear, EOM Intact HENT: Yes: Atraumatic, Normocephalic Neck: Yes: Supple, Trachea Midline Cardiovascular: Yes: Regular Rate and Rhythm Respiratory: Yes: Regular, CTA Bilaterally Gastrointestinal: Yes: Soft, Hypoactive Bowel Sounds, Tenderness Musculoskeletal: Yes: WNL Extremities: Yes: WNL Neurological: Yes: Alert, Oriented Psychiatric: Yes: Alert, Oriented Labs: CBC, BMP 09/27/19 06:27 09/27/19 06:27 Imaging - Results Chest X-ray: Report Reviewed, Image Reviewed Cat Scan: Report Reviewed, Image Reviewed Assessment/Plan this patient with multiple medical problems coming with abd pain covid testing is pending i am worried if the patient is having ischemia of the bowel continues to ahve pain plan would advise npo zosyn await for covid testing follow lactic acid surgery on board rest as per the team
--- NOTE | 2019-09-27 12:43 | EKG ---
Test Reason : Blood Pressure : / mmHG Vent. Rate : 142 BPM Atrial Rate : 142 BPM P-R Int : 120 ms QRS Dur : 080 ms QT Int : 290 ms P-R-T Axes : 039 035 041 degrees QTc Int : 446 ms SINUS TACHYCARDIA NONSPECIFIC ST ABNORMALITY ABNORMAL ECG WHEN COMPARED WITH ECG OF 20-AUG-2010 14:04, NO SIGNIFICANT CHANGE WAS FOUND Confirmed by MD CASTAÑEDA PENG ([id number]) on 09/27/2019 12:43:30 PM Referred By: Confirmed By:BERENICE CASTAÑEDA MD
--- NOTE | 2019-09-27 13:05 | HP ---
Admitting History and Physical - Admission History of Present Illness: Pt is a 64 y/o female w/ PMH significant for HTN, diabetes, OA, and FMG> Pt presented to the ER from PMD(Dr. Moss) office for tachycardia while being seen in the office. She had been having nausea and vomiting since Wednesday with epigastric pain. She vomited in the am as well, non-bloody. She gives no history of ulcerative disease. Her last BM was on Wednesday non-bloody. She has had a normal colonoscopy in the past. She denies any fever/CP some back pain with breathing deep which started Wednesday no SOB. C/o fevers. She has a history of lap ita and an appendectomy. She complains of painful urination/no hematuria. In the ER pt also found to have RUL/RML infiltrates. - Past Medical History Cardiovascular: Yes: HTN ...: No Endocrine: Yes: Diabetes Mellitus - Past Surgical History Past Surgical History: Yes: Appendectomy, Cholecystectomy - Smoking History Smoking history: Never smoked Have you smoked in the past 12 months: No - Alcohol/Substance Use Hx Alcohol Use: No Home Medications - Allergies Allergies/Adverse Reactions: Allergies Allergy/AdvReac Type Severity Reaction Status Date / Time No Known Drug Allergies Allergy Verified 10/12/19 13:24 - Home Medications Home Medications: Ambulatory Orders Acyclovir [Zovirax -] 400 mg PO BID 02/08/15 Gabapentin 600 mg PO TID 02/08/15 Upadacitinib [Rinvoq ER] 15 mg PO DAILY 09/27/19 Pantoprazole Sodium [Protonix -] 40 mg PO DAILY #30 tablet.ec 10/04/19 Simethicone [Mylicon -] 80 mg PO QID #120 tab.chew 10/04/19 Atorvastatin Calcium [Lipitor] 20 mg PO HS 10/12/19 Cyclobenzaprine HCl [Flexeril -] 10 mg PO DAILY 10/12/19 Dulaglutide [Trulicity] 1.5 mg SQ WEEKLY 10/12/19 Duloxetine HCl [Cymbalta -] 30 mg PO DAILY 10/12/19 Insulin Glargine,Hum.rec.anlog [Toujeo Max Solostar] 50 unit SQ BID 10/12/19 Naproxen [EC-Naprosyn] 500 mg PO DAILY 10/12/19 Upadacitinib [Rinvoq ER] 15 mg PO DAILY 10/12/19 Family Medical History Family History: Unremarkable Review of Systems - Review of Systems Constitutional: reports: Loss of Appetite, Weakness Eyes: reports: No Symptoms HENT: reports: No Symptoms Neck: reports: No Symptoms Cardiovascular: reports: No Symptoms Gastrointestinal: reports: Abdominal Pain, Nausea, Vomiting Physical Examination Vital Signs: Vital Signs Temperature 98.1 F 09/27/19 10:24 Pulse Rate 100 H 09/27/19 10:24 Respiratory Rate 09/27/19 10:24 Blood Pressure 110/68 09/27/19 10:24 O2 Sat by Pulse Oximetry (%) 97 09/27/19 08:59 Constitutional: Yes: No Distress Eyes: Yes: WNL HENT: Yes: WNL Neck: Yes: WNL, Supple Cardiovascular: Yes: WNL, Regular Rate and Rhythm Respiratory: Yes: WNL, Regular, CTA Bilaterally Gastrointestinal: Yes: Other (Mild epigastric pain on palpation (-) Guarding/rebound) Extremities: Yes: WNL Edema: No Neurological: Yes: WNL, Alert, Oriented ...Motor Strength: WNL Labs: CBC, BMP 09/27/19 06:27 09/27/19 06:27 Problem List - Problems (1) Sepsis Assessment/Plan: Due to pneumonia vs ?UTI Lactic acidosis wc normalized w/ IV hydration Cont IV atnibx Follow cultures COVID pending ID consult Code(s): A41.9 - SEPSIS, UNSPECIFIED ORGANISM (2) Pneumonia Assessment/Plan: Cont IV antibiotic RUL/RML infitlrate COVID is pending Code(s): J18.9 - PNEUMONIA, UNSPECIFIED ORGANISM (3) Abdominal pain Assessment/Plan: Gastritis H/O erosive gastritis Surgical/GI consults Advance diet as tolerated Code(s): R10.9 - UNSPECIFIED ABDOMINAL PAIN (4) Vomiting Code(s): R11.10 - VOMITING, UNSPECIFIED (5) Diabetes Assessment/Plan: Cont sliding scale w/ coverage Code(s): E11.9 - TYPE 2 DIABETES MELLITUS WITHOUT COMPLICATIONS (6) HTN (hypertension) Assessment/Plan: BP stable Heart rate slightly elevated Code(s): I10 - ESSENTIAL (PRIMARY) HYPERTENSION
--- NOTE | 2019-09-27 15:00 | PN ---
Progress Note (short form) - Note Progress Note: PULMONARY CONSULTATION DICTATED 09/27/19 IMP RUL,RML INFILTRATES COUGH SUSPECTED COVID 19 EPIGASTRIC PAIN HTN IDDM ELEVATED LACTATE PLAN O2 NEEDED ABX PER ID COVID PRR PENDING MONITOR INFLAMMATORY MARKERS GI EVALUATION DR GOMEZ Problem List - Problems (1) Suspected 2019 novel coronavirus infection Code(s): Z20.828 - CONTACT W AND EXPOSURE TO OTH VIRAL COMMUNICABLE DISEASES (2) Pneumonia Code(s): J18.9 - PNEUMONIA, UNSPECIFIED ORGANISM (3) Epigastric abdominal pain Code(s): R10.13 - EPIGASTRIC PAIN (4) HTN (hypertension) Code(s): I10 - ESSENTIAL (PRIMARY) HYPERTENSION (5) Diabetes Code(s): E11.9 - TYPE 2 DIABETES MELLITUS WITHOUT COMPLICATIONS
[2019-09-27] MEDS ORDERED: PANTOPRAZOLE 40 MG TABLET PO ONE (15:45)
--- NOTE | 2019-09-27 23:10 | CONS ---
DATE OF CONSULTATION: 09/27/2019 REFERRING PHYSICIAN: Yudith Chambers MD Patient is a 64-year-old female with past medical history of insulin-dependent diabetes mellitus, hypertension, nonsmoker admitted to [facility] with complaints of abdominal pain. Patient states she started developing epigastric abdominal pain on Wednesday prior to this admission. At the time, she had nausea and vomiting with no diarrhea. She also states for the past day or so that she has been having fevers and cough, nonproductive. She denies any chest pain or palpitations. She presented to the emergency room as above. In the ER, she underwent a CT scan of the chest, which revealed evidence of right upper lobe and right middle lobe infiltrates, ground-glass opacities. Denies any recent travel. She was also noted to have a thyroid nodule of 10.8 cm. The patient underwent a CT of the abdomen, which did not reveal any acute process in the upper abdomen, but mild appendiceal thickening. No evidence of acute appendicitis. There was also diverticulosis noted without any acute diverticulitis. Patient was admitted. She was started on antibiotic therapy. PAST MEDICAL HISTORY: Includes the insulin-dependent diabetes mellitus, hypertension. SOCIAL HISTORY: No occupational exposure. Nonsmoker. CURRENT MEDICATIONS: Include Zofran, piperacillin, heparin, Neurontin, Elavil, Paxil, normal saline, insulin, and morphine. REVIEW OF SYSTEMS: No orthopnea, no PND. Positive cough and fever. No chest pain, no palpitations. Positive epigastric pain. PHYSICAL EXAMINATION: General: Patient is a well-developed, well-nourished female, awake, alert, in no acute distress. Vital Signs: She is currently afebrile. T-max 100.4, blood pressure 123/68, respiratory rate 20, O2 saturation is 97% on room air. HEENT: Head is normocephalic, atraumatic. NECK: Supple. HEART: Regular, S1, S2. CHEST: Clear. ABDOMEN: Soft. Bowel sounds positive. EXTREMITIES: No clubbing, cyanosis, or edema. LABORATORY: BUN is 6, creatinine 0.8, initial lactate is 2.2, most recent 1.1. WBC is 15.6, hemoglobin 12, hematocrit 36.2, platelet count of 259,000. Chest CT is noted. IMPRESSION: 1. Right middle lobe and right lower lobe pneumonia, community-acquired vs COVID. 2. Cough secondary to above. 3. Suspected COVID-19. 4. Epigastric pain. 5. Hypertension. 6. Insulin-dependent diabetes mellitus. 7. Elevated lactate, currently corrected. PLAN: Supplemental O2, antibiotics per Infectious Disease. COVID PCR is pending. Monitor inflammatory markers and obtain GI evaluation. WILLIAM GOMEZ M.D. [id number] MTDD
[2019-09-28] MEDS ORDERED: DEXTROSE 5%-WATER - 50 ML IVPB ONE ×3 (01:03→16:30)
[2019-09-28] MEDS ORDERED: PIPERACILLIN/TAZOBACTAM 3.375 GM VIAL IVPB ONE ×3 (01:03→16:30)
[2019-09-28] MEDS: PIPERACILLIN/TAZOB 3.375 GM 3.375 GM in DEXTROSE 5%-WATER - 50 ML IVPB SCH ×3 (01:30→17:00)
[2019-09-28] MEDS: GABAPENTIN 300 MG CAPSULE PO SCH ×3 (05:25→21:38)
[2019-09-28] MEDS: INSULIN SLIDING SCALE (NOVOLOG) 1 VIAL SQ SCH ×4 (06:03→21:45)
[2019-09-28 06:25] LABS: BASO % 0.2 % (0-2.0); EOS % 0.4 % (0-4.5); HEMATOCRIT 36.5 % (32.4-45.2); HEMOGLOBIN 12.2 GM/dL (10.7-15.3); LYMPH % 12.4 % (8-40); MCH 30.6 pg (25.7-33.7); MCHC 33.3 g/dl (32.0-36.0); MEAN CELL VOLUME 91.6 fl (80-96); MEAN PLT VOLUME 8.8 fl (7.5-11.1); MONO % 6.2 % (3.8-10.2); NEUT % 80.8 % (42.8-82.8); PLATELET COUNT 255 K/MM3 (134-434); RBC 3.99 M/mm3 (3.60-5.2); RDW 15.6 % (11.6-15.6)
[2019-09-28 06:41] LABS: ALBUMIN 3.3 g/dl (3.4-5.0); BILIRUBIN,TOTAL 0.6 mg/dL (0.2-1); BLOOD UREA NITROGEN 4.4 mg/dL (7-18); CALCIUM 9.1 mg/dL (8.5-10.1); CREATININE 0.8 mg/dL (0.55-1.3)
[2019-09-28] MEDS: DEXTROSE 5%-0.45% SALINE 1,000 ML IV SCH (07:12)
--- NOTE | 2019-09-28 07:53 | PN ---
Progress Note, Physician History of Present Illness: PULMONARY ALERT,COMFORTABLE,-SOB,AFEBRILE O2 SAT 93 ON RA - Current Medication List Current Medications: Active Medications Amitriptyline HCl (Elavil -) 10 mg PO DAILY [facility] Last Admin: 09/27/19 09:18 Dose: 10 mg Documented by: Gabapentin (Neurontin -) 600 mg PO TID [facility] Last Admin: 09/28/19 05:25 Dose: 600 mg Documented by: Heparin Sodium (Porcine) (Heparin -) 5,000 unit SQ BID [facility] Last Admin: 09/27/19 21:18 Dose: 5,000 unit Documented by: Dextrose/Sodium Chloride (D5-1/2ns -) 1,000 mls @ 75 mls/hr IV ASDIR [facility] Last Admin: 09/28/19 07:12 Dose: Not Given Documented by: Piperacillin Sod/Tazobactam (Sod 3.375 gm/ Dextrose) 50 mls @ 100 mls/hr IVPB Q8H-IV [facility]; Protocol Last Admin: 09/28/19 01:30 Dose: 100 mls/hr Documented by: Insulin Aspart (Novolog Vial Sliding Scale -) 1 vial SQ ACHS [facility]; Protocol Last Admin: 09/28/19 06:03 Dose: Not Given Documented by: Morphine Sulfate (Morphine Sulfate) 2 mg IVPUSH Q6H PRN PRN Reason: PAIN LEVEL 6-10 Last Admin: 09/27/19 17:24 Dose: 2 mg Documented by: Ondansetron HCl (Zofran Injection) 4 mg IVPUSH Q6H PRN PRN Reason: NAUSEA AND/OR VOMITING Last Admin: 09/27/19 20:10 Dose: 4 mg Documented by: Paroxetine HCl (Paxil -) 40 mg PO DAILY [facility] Last Admin: 09/27/19 09:04 Dose: 40 mg Documented by: - Objective Vital Signs: Vital Signs Temperature 98.1 F 09/28/19 06:00 Pulse Rate 119 H 09/28/19 06:00 Respiratory Rate 18 09/28/19 06:00 Blood Pressure 113/76 09/28/19 06:00 O2 Sat by Pulse Oximetry (%) 97 09/27/19 21:00 Constitutional: Yes: Well Nourished, Calm Eyes: Yes: WNL HENT: Yes: WNL Neck: Yes: WNL Cardiovascular: Yes: Regular Rate and Rhythm, S1, S2 Respiratory: Yes: Rales (FEW CRACKLES) Gastrointestinal: Yes: Normal Bowel Sounds, Soft Extremities: Yes: WNL Edema: No Labs: CBC, BMP 09/28/19 05:25 09/28/19 05:25 INR, PTT INR 1.06 (0.83-1.09) 09/26/19 15:40 Problem List - Problems (1) Suspected 2019 novel coronavirus infection Code(s): Z20.828 - CONTACT W AND EXPOSURE TO OTH VIRAL COMMUNICABLE DISEASES (2) Pneumonia Code(s): J18.9 - PNEUMONIA, UNSPECIFIED ORGANISM (3) Epigastric abdominal pain Code(s): R10.13 - EPIGASTRIC PAIN (4) HTN (hypertension) Code(s): I10 - ESSENTIAL (PRIMARY) HYPERTENSION (5) Diabetes Code(s): E11.9 - TYPE 2 DIABETES MELLITUS WITHOUT COMPLICATIONS Assessment/Plan IMP RUL,RML INFILTRATES COUGH COVID 19 NEGATIVE EPIGASTRIC PAIN HTN IDDM ELEVATED LACTATE CORRECTED PLAN O2 NEEDED ABX PER ID COVID PRR NEGATIVE MONITOR INFLAMMATORY MARKERS GI EVALUATION DR GOMEZ Problem List - Problems (1) Suspected 2019 novel coronavirus infection Code(s): Z20.828 - CONTACT W AND EXPOSURE TO OTH VIRAL COMMUNICABLE DISEASES (2) Pneumonia Code(s): J18.9 - PNEUMONIA, UNSPECIFIED ORGANISM (3) Epigastric abdominal pain Code(s): R10.13 - EPIGASTRIC PAIN (4) HTN (hypertension) Code(s): I10 - ESSENTIAL (PRIMARY) HYPERTENSION (5) Diabetes Code(s): E11.9 - TYPE 2 DIABETES MELLITUS WITHOUT COMPLICATIONS
[2019-09-28] MEDS: HEPARIN NA (PORCINE) 5,000 UNITS/ML 1ML VIAL SQ SCH ×2 (09:45→21:38)
[2019-09-28] MEDS: PARoxetine HCL 20 MG TABLET PO SCH (09:46)
[2019-09-28] MEDS: AMITRIPTYLINE HCL 10 MG TABLET PO SCH (09:48)
[2019-09-28] MEDS ORDERED: PT OWN MED DRAWER 7, Y5N ONE (09:48)
[2019-09-28] MEDS: MORPHINE SULFATE 2 MG/ML VIAL IVPUSH PRN (11:00)
[2019-09-28 12:39] VITALS: BMI 25.7
--- NOTE | 2019-09-28 14:58 | PN ---
Progress Note, Physician History of Present Illness: improving urine positive abd pain better - Current Medication List Current Medications: Active Medications Amitriptyline HCl (Elavil -) 10 mg PO DAILY [facility] Last Admin: 09/28/19 09:48 Dose: 10 mg Documented by: Gabapentin (Neurontin -) 600 mg PO TID [facility] Last Admin: 09/28/19 13:13 Dose: 600 mg Documented by: Heparin Sodium (Porcine) (Heparin -) 5,000 unit SQ BID [facility] Last Admin: 09/28/19 09:45 Dose: 5,000 unit Documented by: Dextrose/Sodium Chloride (D5-1/2ns -) 1,000 mls @ 75 mls/hr IV ASDIR [facility] Last Admin: 09/28/19 07:12 Dose: Not Given Documented by: Piperacillin Sod/Tazobactam (Sod 3.375 gm/ Dextrose) 50 mls @ 100 mls/hr IVPB Q8H-IV [facility]; Protocol Last Admin: 09/28/19 09:47 Dose: 100 mls/hr Documented by: Insulin Aspart (Novolog Vial Sliding Scale -) 1 vial SQ ACHS [facility]; Protocol Last Admin: 09/28/19 11:10 Dose: Not Given Documented by: Morphine Sulfate (Morphine Sulfate) 2 mg IVPUSH Q6H PRN PRN Reason: PAIN LEVEL 6-10 Last Admin: 09/28/19 11:00 Dose: 2 mg Documented by: Ondansetron HCl (Zofran Injection) 4 mg IVPUSH Q6H PRN PRN Reason: NAUSEA AND/OR VOMITING Last Admin: 09/27/19 20:10 Dose: 4 mg Documented by: Paroxetine HCl (Paxil -) 40 mg PO DAILY [facility] Last Admin: 09/28/19 09:46 Dose: 40 mg Documented by: - Objective Vital Signs: Vital Signs Temperature 98.5 F 09/28/19 08:19 Pulse Rate 112 H 09/28/19 08:19 Respiratory Rate 18 09/28/19 09:00 Blood Pressure 106/57 L 09/28/19 08:19 O2 Sat by Pulse Oximetry (%) 93 L 09/28/19 09:00 Constitutional: Yes: Calm, Mild Distress HENT: Yes: Atraumatic, Normocephalic Neck: Yes: Supple, Trachea Midline Cardiovascular: Yes: Regular Rate and Rhythm Respiratory: Yes: Regular, CTA Bilaterally Gastrointestinal: Yes: Normal Bowel Sounds, Soft Musculoskeletal: Yes: WNL Extremities: Yes: WNL Neurological: Yes: Alert, Oriented Psychiatric: Yes: Alert, Oriented Labs: CBC, BMP 09/28/19 05:25 09/28/19 05:25 INR, PTT INR 1.06 (0.83-1.09) 09/26/19 15:40 Assessment/Plan this patient with multiple medical problems coming with abd pain covid testing is pending i am worried if the patient is having ischemia of the bowel continues to ahve pain plan zosyn await for covid testing await for finalization of cx rest as per the team
--- NOTE | 2019-09-28 16:56 | PN ---
Progress Note (short form) - Note Progress Note: Surg: Pt states that she doesn;t have any complaints of nausea. ABd pain improved. Vital Signs Period Temp Pulse Resp BP Sys/Person Pulse Ox Last 24 Hr 98.1 F-98.9 F 102-119 18-18 102-121/57-77 93-97 GEN: A&0x3, NAD ABD: soft,non-distended, epigastric/RUQ tenderess. CBC, BMP 09/28/19 05:25 09/28/19 05:25 Microbiology 09/26/19 17:20 Urine - Urine Clean Catch Urine Culture - Preliminary Lactose Fermenting Neg Bacilli Lactose Fermenting Neg Bacilli#2 09/26/19 15:40 Blood - Peripheral Venous Blood Culture - Preliminary NO GROWTH OBTAINED AFTER 48 HOURS, INCUBATION TO CONTINUE FOR 3 DAYS. 09/26/19 15:40 Blood - Peripheral Venous Blood Culture - Preliminary NO GROWTH OBTAINED AFTER 48 HOURS, INCUBATION TO CONTINUE FOR 3 DAYS. abd US: absent GB without evidence of intrahepatic duct dilatation. no hydronephrosis. A/p: 64 yo female with improved abd nausea. mild epigastric pain. afebrile with resolving leukocytosis and abdominal pain. Recommend to begin clears as tolerated. ID follow-up, urine culture with >100,000 bacteria. Await urine sensitivity. Surgery to follow Continue PPI/GI if upper epigastric pain continues D/w Dr. Jones
--- NOTE | 2019-09-28 17:33 | CON.GI ---
Consult Consult Specialty:: GI - History of Present Illness History of Present Illness: 64 y/o F was admitted with epigastric pain nausea and vomiting. She also has dysuria. LAst EGD [address] Long at [facility] and was noted to have erosive gastritis. She was admitted for further evaluation of her pneumonia. She is Covid negative. - Past Medical History Cardio/Vascular: Yes: HTN ...: No Endocrine: Yes: Diabetes Mellitus - Alcohol/Substance Use Hx Alcohol Use: No - Smoking History Smoking history: Never smoked Have you smoked in the past 12 months: No Home Medications - Allergies Allergies/Adverse Reactions: Allergies Allergy/AdvReac Type Severity Reaction Status Date / Time No Known Drug Allergies Allergy Verified 08/02/18 12:32 - Home Medications Home Medications: Ambulatory Orders Acyclovir [Zovirax -] 400 mg PO BID 02/08/15 Amitriptyline HCl [Elavil -] 10 mg PO DAILY 02/08/15 Gabapentin 600 mg PO TID 02/08/15 Insulin (Levemir) [Levemir Flexpen -] 45 units SQ BID 02/08/15 Insulin Aspart [Novolog] 0 unit SQ ASDIR 02/08/15 Meloxicam [Mobic (Nf) -] 15 mg PO DAILY 02/08/15 Paroxetine HCl 40 mg PO DAILY 02/08/15 Tofacitinib Citrate [Xeljanz] 5 mg PO DAILY 02/08/15 Upadacitinib [Rinvoq ER] 15 mg PO DAILY 09/27/19 Physical Exam-GI Vital Signs: Vital Signs Temperature 98.1 F 09/28/19 15:28 Pulse Rate 105 H 09/28/19 15:28 Respiratory Rate 18 09/28/19 15:28 Blood Pressure 102/58 L 09/28/19 15:28 O2 Sat by Pulse Oximetry (%) 93 L 09/28/19 09:00 Labs: CBC, BMP 09/28/19 05:25 09/28/19 05:25 INR, PTT INR 1.06 (0.83-1.09) 09/26/19 15:40 CBCD WBC 11.0 K/mm3 (4.0-10.0) H 09/28/19 05:25 RBC 3.99 M/mm3 (3.60-5.2) 09/28/19 05:25 Hgb 12.2 GM/dL (10.7-15.3) 09/28/19 05:25 Hct 36.5 % (32.4-45.2) 09/28/19 05:25 MCV 91.6 fl (80-96) 09/28/19 05:25 MCHC 33.3 g/dl (32.0-36.0) 09/28/19 05:25 RDW 15.6 % (11.6-15.6) 09/28/19 05:25 Plt Count 255 K/MM3 (134-434) 09/28/19 05:25 MPV 8.8 fl (7.5-11.1) 09/28/19 05:25 CMP Sodium 138 mmol/L (136-145) 09/28/19 05:25 Potassium 4.0 mmol/L (3.5-5.1) 09/28/19 05:25 Chloride 104 mmol/L (98-107) 09/28/19 05:25 Carbon Dioxide 26 mmol/L (21-32) 09/28/19 05:25 Anion Gap 7 MMOL/L (8-16) L 09/28/19 05:25 BUN 4.4 mg/dL (7-18) L 09/28/19 05:25 Creatinine 0.8 mg/dL (0.55-1.3) 09/28/19 05:25 Calcium 9.1 mg/dL (8.5-10.1) 09/28/19 05:25 Total Bilirubin 0.6 mg/dL (0.2-1) 09/28/19 05:25 AST 11 U/L (15-37) L 09/28/19 05:25 ALT 16 U/L (13-61) 09/28/19 05:25 Alkaline Phosphatase 108 U/L (45-117) 09/28/19 05:25 Total Protein 7.0 g/dl (6.4-8.2) 09/28/19 05:25 Albumin 3.3 g/dl (3.4-5.0) L 09/28/19 05:25 Problem List - Problems (1) Dyspepsia Assessment/Plan: r/o secondary to gastritis and gastroparesis R> Pantoprazole 40mg daily Reglan 5mg 30 min ac Code(s): R10.13 - EPIGASTRIC PAIN
[2019-09-28] MEDS: PANTOPRAZOLE 40 MG TABLET PO SCH (18:10)
[2019-09-28] MEDS: METOCLOPRAMIDE HCL 10 MG TABLET (FP) PO SCH (21:39)
--- NOTE | 2019-09-28 22:46 | PN ---
Progress Note, Physician History of Present Illness: Pt still w/ abdominal pain - Current Medication List Current Medications: Active Medications Amitriptyline HCl (Elavil -) 10 mg PO DAILY [facility] Last Admin: 09/28/19 09:48 Dose: 10 mg Documented by: Gabapentin (Neurontin -) 600 mg PO TID [facility] Last Admin: 09/28/19 21:38 Dose: 600 mg Documented by: Heparin Sodium (Porcine) (Heparin -) 5,000 unit SQ BID [facility] Last Admin: 09/28/19 21:38 Dose: 5,000 unit Documented by: Dextrose/Sodium Chloride (D5-1/2ns -) 1,000 mls @ 75 mls/hr IV ASDIR [facility] Last Admin: 09/28/19 07:12 Dose: Not Given Documented by: Piperacillin Sod/Tazobactam (Sod 3.375 gm/ Dextrose) 50 mls @ 100 mls/hr IVPB Q8H-IV [facility]; Protocol Last Admin: 09/28/19 17:00 Dose: 100 mls/hr Documented by: Insulin Aspart (Novolog Vial Sliding Scale -) 1 vial SQ [facility]; Protocol Last Admin: 09/28/19 21:45 Dose: 4 units Documented by: Metoclopramide HCl (Reglan -) 5 mg PO ACHS [facility] Last Admin: 09/28/19 21:39 Dose: 5 mg Documented by: Morphine Sulfate (Morphine Sulfate) 2 mg IVPUSH Q6H PRN PRN Reason: PAIN LEVEL 6-10 Last Admin: 09/28/19 11:00 Dose: 2 mg Documented by: Ondansetron HCl (Zofran Injection) 4 mg IVPUSH Q6H PRN PRN Reason: NAUSEA AND/OR VOMITING Last Admin: 09/27/19 20:10 Dose: 4 mg Documented by: Pantoprazole Sodium (Protonix -) 40 mg PO DAILY [facility] Last Admin: 09/28/19 18:10 Dose: 40 mg Documented by: Paroxetine HCl (Paxil -) 40 mg PO DAILY [facility] Last Admin: 09/28/19 09:46 Dose: 40 mg Documented by: - Objective Vital Signs: Vital Signs Temperature 98.6 F 09/28/19 20:08 Pulse Rate 97 H 09/28/19 20:08 Respiratory Rate 18 09/28/19 20:08 Blood Pressure 100/73 09/28/19 20:08 O2 Sat by Pulse Oximetry (%) 93 L 09/28/19 21:00 Cardiovascular: Yes: WNL, Regular Rate and Rhythm Respiratory: Yes: WNL, Regular, CTA Bilaterally Gastrointestinal: Yes: Normal Bowel Sounds, Soft, Other (minimal generalized tenderness on palpation) Labs: CBC, BMP 09/28/19 05:25 09/28/19 05:25 INR, PTT INR 1.06 (0.83-1.09) 09/26/19 15:40 Problem List - Problems (1) Abdominal pain Assessment/Plan: Advance diet Surgical/GI consults noted H/O erosive gastritis Cont protonix/reglan Code(s): R10.9 - UNSPECIFIED ABDOMINAL PAIN (2) Pneumonia Assessment/Plan: Cont IV zosyn RUL/RML infitlrate COVID is negative Code(s): J18.9 - PNEUMONIA, UNSPECIFIED ORGANISM (3) UTI (urinary tract infection) Assessment/Plan: Lactose fermenting neg bacilli COnt IV zosyn Code(s): N39.0 - URINARY TRACT INFECTION, SITE NOT SPECIFIED (4) Diabetes Assessment/Plan: Cont sliding scale w/ coverage Code(s): E11.9 - TYPE 2 DIABETES MELLITUS WITHOUT COMPLICATIONS (5) HTN (hypertension) Assessment/Plan: BP stable Heart rate slightly elevated Code(s): I10 - ESSENTIAL (PRIMARY) HYPERTENSION
[2019-09-29] MEDS ORDERED: PIPERACILLIN/TAZOBACTAM 3.375 GM VIAL IVPB ONE ×3 (01:03→17:06)
[2019-09-29] MEDS ORDERED: DEXTROSE 5%-WATER - 50 ML IVPB ONE ×3 (01:03→17:07)
[2019-09-29] MEDS: PIPERACILLIN/TAZOB 3.375 GM 3.375 GM in DEXTROSE 5%-WATER - 50 ML IVPB SCH ×3 (01:20→17:16)
[2019-09-29] MEDS: DEXTROSE 5%-0.45% SALINE 1,000 ML IV SCH ×2 (01:20→17:15)
[2019-09-29] MEDS: GABAPENTIN 300 MG CAPSULE PO SCH ×3 (05:47→21:16)
[2019-09-29] MEDS: INSULIN SLIDING SCALE (NOVOLOG) 1 VIAL SQ SCH ×4 (06:03→21:17)
[2019-09-29] MEDS: METOCLOPRAMIDE HCL 10 MG TABLET (FP) PO SCH ×4 (06:03→21:16)
[2019-09-29 07:13] LABS: BASO % 0.5 % (0-2.0); EOS % 1.2 % (0-4.5); HEMATOCRIT 37.1 % (32.4-45.2); HEMOGLOBIN 12.5 GM/dL (10.7-15.3); LYMPH % 22.7 % (8-40); MCH 30.9 pg (25.7-33.7); MCHC 33.7 g/dl (32.0-36.0); MEAN CELL VOLUME 91.9 fl (80-96); MEAN PLT VOLUME 8.5 fl (7.5-11.1); MONO % 10.6 % (3.8-10.2); PLATELET COUNT 271 K/MM3 (134-434); RBC 4.04 M/mm3 (3.60-5.2); RDW 15.3 % (11.6-15.6); WHITE BLOOD COUNT 5.9 K/mm3 (4.0-10.0)
[2019-09-29 07:30] LABS: ALBUMIN 3.1 g/dl (3.4-5.0); BILIRUBIN,TOTAL 0.5 mg/dL (0.2-1); BLOOD UREA NITROGEN 5.7 mg/dL (7-18); CALCIUM 8.9 mg/dL (8.5-10.1); POTASSIUM 4.3 mmol/L (3.5-5.1); TOT PROT 6.9 g/dl (6.4-8.2)
[2019-09-29 07:31] LABS: CREATININE 0.8 mg/dL (0.55-1.3)
[2019-09-29] MEDS ORDERED: PT OWN MED DRAWER 7, Y5N ONE (09:05)
[2019-09-29] MEDS: PANTOPRAZOLE 40 MG TABLET PO SCH (09:08)
[2019-09-29] MEDS: ONDANSETRON 4 MG/2 ML VIAL IVPUSH PRN (09:08)
[2019-09-29] MEDS: AMITRIPTYLINE HCL 10 MG TABLET PO SCH (09:08)
[2019-09-29] MEDS: PARoxetine HCL 20 MG TABLET PO SCH (09:08)
[2019-09-29] MEDS: HEPARIN NA (PORCINE) 5,000 UNITS/ML 1ML VIAL SQ SCH ×2 (09:08→21:17)
--- NOTE | 2019-09-29 11:42 | PN ---
Progress Note, Physician History of Present Illness: patient stable no new issues improving - Current Medication List Current Medications: Active Medications Amitriptyline HCl (Elavil -) 10 mg PO DAILY [facility] Last Admin: 09/29/19 09:08 Dose: 10 mg Documented by: Gabapentin (Neurontin -) 600 mg PO TID [facility] Last Admin: 09/29/19 05:47 Dose: 600 mg Documented by: Heparin Sodium (Porcine) (Heparin -) 5,000 unit SQ BID [facility] Last Admin: 09/29/19 09:08 Dose: 5,000 unit Documented by: Dextrose/Sodium Chloride (D5-1/2ns -) 1,000 mls @ 75 mls/hr IV ASDIR [facility] Last Admin: 09/29/19 01:20 Dose: 75 mls/hr Documented by: Piperacillin Sod/Tazobactam (Sod 3.375 gm/ Dextrose) 50 mls @ 100 mls/hr IVPB Q8H-IV [facility]; Protocol Last Admin: 09/29/19 09:08 Dose: 100 mls/hr Documented by: Insulin Aspart (Novolog Vial Sliding Scale -) 1 vial SQ [facility]; Protocol Last Admin: 09/29/19 10:52 Dose: 2 units Documented by: Metoclopramide HCl (Reglan -) 5 mg PO ACHS [facility] Last Admin: 09/29/19 10:53 Dose: 5 mg Documented by: Morphine Sulfate (Morphine Sulfate) 2 mg IVPUSH Q6H PRN PRN Reason: PAIN LEVEL 6-10 Last Admin: 09/28/19 11:00 Dose: 2 mg Documented by: Ondansetron HCl (Zofran Injection) 4 mg IVPUSH Q6H PRN PRN Reason: NAUSEA AND/OR VOMITING Last Admin: 09/29/19 09:08 Dose: 4 mg Documented by: Pantoprazole Sodium (Protonix -) 40 mg PO DAILY [facility] Last Admin: 09/29/19 09:08 Dose: 40 mg Documented by: Paroxetine HCl (Paxil -) 40 mg PO DAILY [facility] Last Admin: 09/29/19 09:08 Dose: 40 mg Documented by: - Objective Vital Signs: Vital Signs Temperature 98.1 F 09/29/19 09:00 Pulse Rate 95 H 09/29/19 09:00 Respiratory Rate 18 09/29/19 09:00 Blood Pressure 106/67 09/29/19 09:00 O2 Sat by Pulse Oximetry (%) 94 L 09/29/19 09:00 Constitutional: Yes: No Distress, Calm Cardiovascular: Yes: S1, S2 Respiratory: Yes: Regular, CTA Bilaterally Gastrointestinal: Yes: Normal Bowel Sounds, Soft Musculoskeletal: Yes: WNL Extremities: Yes: WNL Neurological: Yes: Alert, Oriented Psychiatric: Yes: Alert, Oriented Labs: CBC, BMP 09/29/19 06:10 09/29/19 06:10 INR, PTT INR 1.06 (0.83-1.09) 09/26/19 15:40 Assessment/Plan abd pain uti fever leukocytosis sepsis plan zosyn rest as per the team
--- NOTE | 2019-09-29 11:44 | PN ---
Progress Note (short form) - Note Progress Note: PULMONARY CHART REVIEWED VSS/AFEBRILE/NONVERBAL Constitutional: Yes: Well Nourished, Calm Eyes: Yes: WNL HENT: Yes: WNL/R IJ Neck: Yes: WNL Cardiovascular: Yes: Regular Rate and Rhythm, S1, S2 Respiratory: Yes: Rales (FEW CRACKLES) Gastrointestinal: Yes: Normal Bowel Sounds, Soft Extremities: Yes: WNL Edema: No Labs/meds/notes/images/micro reviewed Problem List - Problems (1) Suspected 2019 novel coronavirus infection Code(s): Z20.828 - CONTACT W AND EXPOSURE TO OTH VIRAL COMMUNICABLE DISEASES (2) Pneumonia Code(s): J18.9 - PNEUMONIA, UNSPECIFIED ORGANISM (3) Epigastric abdominal pain Code(s): R10.13 - EPIGASTRIC PAIN (4) HTN (hypertension) Code(s): I10 - ESSENTIAL (PRIMARY) HYPERTENSION (5) Diabetes Code(s): E11.9 - TYPE 2 DIABETES MELLITUS WITHOUT COMPLICATIONS Assessment/Plan IMP RUL,RML INFILTRATES COUGH COVID 19 NEGATIVE EPIGASTRIC PAIN HTN IDDM ELEVATED LACTATE CORRECTED PLAN O2 NEEDED ABX PER ID COVID PRR NEGATIVE MONITOR INFLAMMATORY MARKERS GI EVALUATION NOTED DR GOMEZ
[2019-09-29] MEDS: MORPHINE SULFATE 2 MG/ML VIAL IVPUSH PRN (21:19)
--- NOTE | 2019-09-29 21:55 | PN ---
Progress Note, Physician History of Present Illness: Pt still w/ abdominal pain - Current Medication List Current Medications: Active Medications Amitriptyline HCl (Elavil -) 10 mg PO DAILY [facility] Last Admin: 09/29/19 09:08 Dose: 10 mg Documented by: Gabapentin (Neurontin -) 600 mg PO TID [facility] Last Admin: 09/29/19 21:16 Dose: 600 mg Documented by: Heparin Sodium (Porcine) (Heparin -) 5,000 unit SQ BID [facility] Last Admin: 09/29/19 21:17 Dose: 5,000 unit Documented by: Dextrose/Sodium Chloride (D5-1/2ns -) 1,000 mls @ 75 mls/hr IV ASDIR [facility] Last Admin: 09/29/19 17:15 Dose: 75 mls/hr Documented by: Piperacillin Sod/Tazobactam (Sod 3.375 gm/ Dextrose) 50 mls @ 100 mls/hr IVPB Q8H-IV [facility]; Protocol Last Admin: 09/29/19 17:16 Dose: 100 mls/hr Documented by: Insulin Aspart (Novolog Vial Sliding Scale -) 1 vial SQ [facility]; Protocol Last Admin: 09/29/19 21:17 Dose: 2 units Documented by: Metoclopramide HCl (Reglan -) 5 mg PO ACHS [facility] Last Admin: 09/29/19 21:16 Dose: 5 mg Documented by: Ondansetron HCl (Zofran Injection) 4 mg IVPUSH Q6H PRN PRN Reason: NAUSEA AND/OR VOMITING Last Admin: 09/29/19 09:08 Dose: 4 mg Documented by: Pantoprazole Sodium (Protonix -) 40 mg PO DAILY [facility] Last Admin: 09/29/19 09:08 Dose: 40 mg Documented by: Paroxetine HCl (Paxil -) 40 mg PO DAILY [facility] Last Admin: 09/29/19 09:08 Dose: 40 mg Documented by: - Objective Vital Signs: Vital Signs Temperature 98.3 F 09/29/19 18:46 Pulse Rate 88 09/29/19 18:46 Respiratory Rate 18 09/29/19 18:46 Blood Pressure 106/67 09/29/19 18:46 O2 Sat by Pulse Oximetry (%) 94 L 09/29/19 09:00 Cardiovascular: Yes: WNL, Regular Rate and Rhythm Respiratory: Yes: Diminished Gastrointestinal: Yes: Normal Bowel Sounds, Soft, Other ((+) minmal epigastric tenderness) Labs: CBC, BMP 09/29/19 06:10 09/29/19 06:10 INR, PTT INR 1.06 (0.83-1.09) 09/26/19 15:40 Problem List - Problems (1) Abdominal pain Assessment/Plan: Gastritis H/O erosive gastritis Surgical/GI consults Advance diet as tolerated Code(s): R10.9 - UNSPECIFIED ABDOMINAL PAIN (2) Pneumonia Assessment/Plan: Cont IV antibiotic RUL/RML infitlrate COVID is pending Code(s): J18.9 - PNEUMONIA, UNSPECIFIED ORGANISM (3) UTI (urinary tract infection) Assessment/Plan: Monitor cultures COnt IV zosyn Code(s): N39.0 - URINARY TRACT INFECTION, SITE NOT SPECIFIED (4) Diabetes Assessment/Plan: Cont sliding scale w/ coverage Code(s): E11.9 - TYPE 2 DIABETES MELLITUS WITHOUT COMPLICATIONS (5) HTN (hypertension) Assessment/Plan: BP stable Heart rate slightly elevated Code(s): I10 - ESSENTIAL (PRIMARY) HYPERTENSION (6) Sepsis Assessment/Plan: Resolved Due to pneumonia vs ?UTI Lactic acidosis wc normalized w/ IV hydration Cont IV atnibx Follow cultures COVID pending Code(s): A41.9 - SEPSIS, UNSPECIFIED ORGANISM
[2019-09-30] MEDS ORDERED: DEXTROSE 5%-WATER - 50 ML IVPB ONE ×3 (01:20→17:11)
[2019-09-30] MEDS ORDERED: PIPERACILLIN/TAZOBACTAM 3.375 GM VIAL IVPB ONE ×3 (01:20→17:11)
[2019-09-30] MEDS: PIPERACILLIN/TAZOB 3.375 GM 3.375 GM in DEXTROSE 5%-WATER - 50 ML IVPB SCH ×3 (01:55→17:01)
[2019-09-30] MEDS: DEXTROSE 5%-0.45% SALINE 1,000 ML IV SCH ×2 (01:55→06:33)
[2019-09-30] MEDS: INSULIN SLIDING SCALE (NOVOLOG) 1 VIAL SQ SCH ×4 (06:32→21:28)
[2019-09-30] MEDS: METOCLOPRAMIDE HCL 10 MG TABLET (FP) PO SCH ×4 (06:33→21:28)
[2019-09-30] MEDS: GABAPENTIN 300 MG CAPSULE PO SCH ×3 (06:33→21:27)
[2019-09-30] MEDS: HEPARIN NA (PORCINE) 5,000 UNITS/ML 1ML VIAL SQ SCH ×2 (09:44→21:35)
[2019-09-30] MEDS: AMITRIPTYLINE HCL 10 MG TABLET PO SCH (09:44)
[2019-09-30] MEDS: PANTOPRAZOLE 40 MG TABLET PO SCH (09:45)
[2019-09-30] MEDS: PARoxetine HCL 20 MG TABLET PO SCH (09:45)
[2019-09-30] MEDS ORDERED: PT OWN MED DRAWER 7, Y5N ONE (09:49)
--- NOTE | 2019-09-30 14:04 | PN ---
Progress Note (short form) - Note Progress Note: Breathing feels OK. Still with GI discomfort. No acute events overnight. Intake & Output 09/27/19 09/28/19 09/29/19 09/30/19 23:59 23:59 23:59 23:59 Intake Total 575 1615 2750 1000 Balance 575 1615 2750 1000 Weight 155 lb Last Vital Signs Temp Pulse Resp BP Pulse Ox 98 F 97 H 20 102/62 96 09/30/19 05:56 09/30/19 05:56 09/30/19 05:56 09/30/19 05:56 09/29/19 21:00 Active Medications Amitriptyline HCl (Elavil -) 10 mg PO DAILY [facility] Last Admin: 09/30/19 09:44 Dose: 10 mg Documented by: Gabapentin (Neurontin -) 600 mg PO TID [facility] Last Admin: 09/30/19 06:33 Dose: 600 mg Documented by: Heparin Sodium (Porcine) (Heparin -) 5,000 unit SQ BID [facility] Last Admin: 09/30/19 09:44 Dose: 5,000 unit Documented by: Dextrose/Sodium Chloride (D5-1/2ns -) 1,000 mls @ 75 mls/hr IV ASDIR [facility] Last Admin: 09/30/19 06:33 Dose: 75 mls/hr Documented by: Piperacillin Sod/Tazobactam (Sod 3.375 gm/ Dextrose) 50 mls @ 100 mls/hr IVPB Q8H-IV [facility]; Protocol Last Admin: 09/30/19 09:44 Dose: 100 mls/hr Documented by: Insulin Aspart (Novolog Vial Sliding Scale -) 1 vial SQ [facility]; Protocol Last Admin: 09/30/19 11:09 Dose: 4 units Documented by: Metoclopramide HCl (Reglan -) 5 mg PO ACHS [facility] Last Admin: 09/30/19 06:33 Dose: 5 mg Documented by: Ondansetron HCl (Zofran Injection) 4 mg IVPUSH Q6H PRN PRN Reason: NAUSEA AND/OR VOMITING Last Admin: 09/29/19 09:08 Dose: 4 mg Documented by: Pantoprazole Sodium (Protonix -) 40 mg PO DAILY [facility] Last Admin: 09/30/19 09:45 Dose: 40 mg Documented by: Paroxetine HCl (Paxil -) 40 mg PO DAILY [facility] Last Admin: 09/30/19 09:45 Dose: 40 mg Documented by: Constitutional: Yes: Well Nourished, NAD Eyes: Yes: WNL HENT: Yes: WNL Neck: Yes: WNL Cardiovascular: Yes: Regular Rate and Rhythm, S1, S2 Respiratory: Yes: Diminished at the bases Gastrointestinal: Yes: Normal Bowel Sounds, Soft Extremities: Yes: WNL Edema: No Labs: Laboratory Results - last 24 hr 09/29/19 09/29/19 09/30/19 17:19 21:14 06:19 POC Glucometer 171 189 174 09/30/19 11:04 POC Glucometer 212 Problem List - Problems (1) Suspected 2019 novel coronavirus infection Code(s): Z20.828 - CONTACT W AND EXPOSURE TO OTH VIRAL COMMUNICABLE DISEASES (2) Pneumonia Code(s): J18.9 - PNEUMONIA, UNSPECIFIED ORGANISM (3) Epigastric abdominal pain Code(s): R10.13 - EPIGASTRIC PAIN (4) HTN (hypertension) Code(s): I10 - ESSENTIAL (PRIMARY) HYPERTENSION (5) Diabetes Code(s): E11.9 - TYPE 2 DIABETES MELLITUS WITHOUT COMPLICATIONS Assessment/Plan IMP RUL,RML INFILTRATES COUGH COVID 19 NEGATIVE EPIGASTRIC PAIN HTN IDDM ELEVATED LACTATE CORRECTED PLAN O2 NEEDED ABX PER ID COVID PRR NEGATIVE GI WORKUP ONGOING Dr Hernandez
--- NOTE | 2019-09-30 15:45 | PN ---
Progress Note, Physician History of Present Illness: Pt states she feels "so so". Still with c/o upper abd discomfort and episodes of small amount of vomiting. No current nausea. Denies SOB/cough. No current dysuria. Afebrile. - Current Medication List Current Medications: Active Medications Amitriptyline HCl (Elavil -) 10 mg PO DAILY [facility] Last Admin: 09/30/19 09:44 Dose: 10 mg Documented by: Gabapentin (Neurontin -) 600 mg PO TID [facility] Last Admin: 09/30/19 06:33 Dose: 600 mg Documented by: Heparin Sodium (Porcine) (Heparin -) 5,000 unit SQ BID [facility] Last Admin: 09/30/19 09:44 Dose: 5,000 unit Documented by: Dextrose/Sodium Chloride (D5-1/2ns -) 1,000 mls @ 75 mls/hr IV ASDIR [facility] Last Admin: 09/30/19 06:33 Dose: 75 mls/hr Documented by: Piperacillin Sod/Tazobactam (Sod 3.375 gm/ Dextrose) 50 mls @ 100 mls/hr IVPB Q8H-IV [facility]; Protocol Last Admin: 09/30/19 09:44 Dose: 100 mls/hr Documented by: Insulin Aspart (Novolog Vial Sliding Scale -) 1 vial SQ [facility]; Protocol Last Admin: 09/30/19 11:09 Dose: 4 units Documented by: Metoclopramide HCl (Reglan -) 5 mg PO ACHS [facility] Last Admin: 09/30/19 06:33 Dose: 5 mg Documented by: Ondansetron HCl (Zofran Injection) 4 mg IVPUSH Q6H PRN PRN Reason: NAUSEA AND/OR VOMITING Last Admin: 09/29/19 09:08 Dose: 4 mg Documented by: Pantoprazole Sodium (Protonix -) 40 mg PO DAILY [facility] Last Admin: 09/30/19 09:45 Dose: 40 mg Documented by: Paroxetine HCl (Paxil -) 40 mg PO DAILY [facility] Last Admin: 09/30/19 09:45 Dose: 40 mg Documented by: - Objective Vital Signs: Vital Signs Temperature 98 F 09/30/19 05:56 Pulse Rate 97 H 09/30/19 05:56 Respiratory Rate 20 09/30/19 05:56 Blood Pressure 102/62 09/30/19 05:56 O2 Sat by Pulse Oximetry (%) 97 09/30/19 09:00 Constitutional: Yes: No Distress, Calm Cardiovascular: Yes: Regular Rate and Rhythm Respiratory: Yes: Regular Gastrointestinal: Yes: Normal Bowel Sounds, Soft, Tenderness (epigastric with deep palpation) Genitourinary: Yes: WNL Extremities: Yes: WNL Integumentary: Yes: WNL Neurological: Yes: Alert, Oriented Labs: CBC, BMP 09/29/19 06:10 09/29/19 06:10 INR, PTT INR 1.06 (0.83-1.09) 09/26/19 15:40 Microbiology 09/26/19 15:40 Blood - Peripheral Venous Blood Culture - Preliminary NO GROWTH OBTAINED AFTER 72 HOURS, INCUBATION TO CONTINUE FOR 2 DAYS. 09/26/19 15:40 Blood - Peripheral Venous Blood Culture - Preliminary NO GROWTH OBTAINED AFTER 72 HOURS, INCUBATION TO CONTINUE FOR 2 DAYS. 09/26/19 17:20 Urine - Urine Clean Catch Urine Culture - Final Escherichia Coli Problem List - Problems (1) Abdominal pain Code(s): R10.9 - UNSPECIFIED ABDOMINAL PAIN (2) Diabetes Code(s): E11.9 - TYPE 2 DIABETES MELLITUS WITHOUT COMPLICATIONS (3) HTN (hypertension) Code(s): I10 - ESSENTIAL (PRIMARY) HYPERTENSION (4) Pneumonia Code(s): J18.9 - PNEUMONIA, UNSPECIFIED ORGANISM (5) Sepsis Code(s): A41.9 - SEPSIS, UNSPECIFIED ORGANISM (6) UTI (urinary tract infection) Code(s): N39.0 - URINARY TRACT INFECTION, SITE NOT SPECIFIED Assessment/Plan UTI PNA Abd pain/vomiting Leukocytosis DM -- fevers resolved, wbc trended down to normal, vitals stable -- breathing comfortably on RA -- GI evaluation done, possible gastritis vs. gastroparesis -- continue monitor
[2019-09-30] MEDS: SIMETHICONE 80 MG TAB.CHEW (FP) PO SCH ×2 (17:01→21:27)
--- NOTE | 2019-09-30 18:06 | PN ---
Progress Note, Physician History of Present Illness: No new complaints - Current Medication List Current Medications: Active Medications Amitriptyline HCl (Elavil -) 10 mg PO DAILY [facility] Last Admin: 09/30/19 09:44 Dose: 10 mg Documented by: Gabapentin (Neurontin -) 600 mg PO TID [facility] Last Admin: 09/30/19 14:15 Dose: 600 mg Documented by: Heparin Sodium (Porcine) (Heparin -) 5,000 unit SQ BID [facility] Last Admin: 09/30/19 09:44 Dose: 5,000 unit Documented by: Dextrose/Sodium Chloride (D5-1/2ns -) 1,000 mls @ 75 mls/hr IV ASDIR [facility] Last Admin: 09/30/19 06:33 Dose: 75 mls/hr Documented by: Piperacillin Sod/Tazobactam (Sod 3.375 gm/ Dextrose) 50 mls @ 100 mls/hr IVPB Q8H-IV [facility]; Protocol Last Admin: 09/30/19 17:01 Dose: 100 mls/hr Documented by: Insulin Aspart (Novolog Vial Sliding Scale -) [address] [facility]; Protocol Last Admin: 09/30/19 17:00 Dose: Not Given Documented by: Metoclopramide HCl (Reglan -) 5 mg PO ACHS [facility] Last Admin: 09/30/19 16:59 Dose: 5 mg Documented by: Ondansetron HCl (Zofran Injection) 4 mg IVPUSH Q6H PRN PRN Reason: NAUSEA AND/OR VOMITING Last Admin: 09/29/19 09:08 Dose: 4 mg Documented by: Pantoprazole Sodium (Protonix -) 40 mg PO DAILY [facility] Last Admin: 09/30/19 09:45 Dose: 40 mg Documented by: Paroxetine HCl (Paxil -) 40 mg PO DAILY [facility] Last Admin: 09/30/19 09:45 Dose: 40 mg Documented by: Simethicone (Mylicon -) 80 mg PO QID [facility] Last Admin: 09/30/19 17:01 Dose: 80 mg Documented by: - Objective Vital Signs: Vital Signs Temperature 98.6 F 09/30/19 13:00 Pulse Rate 94 H 09/30/19 13:00 Respiratory Rate 20 09/30/19 13:00 Blood Pressure 116/70 09/30/19 13:00 O2 Sat by Pulse Oximetry (%) 97 09/30/19 09:00 Cardiovascular: Yes: WNL, Regular Rate and Rhythm Respiratory: Yes: Diminished Gastrointestinal: Yes: WNL, Normal Bowel Sounds, Soft Labs: CBC, BMP 09/29/19 06:10 09/29/19 06:10 INR, PTT INR 1.06 (0.83-1.09) 09/26/19 15:40 Problem List - Problems (1) Pneumonia Assessment/Plan: Cont IV antibiotic RUL/RML infitlrate COVID is negative Code(s): J18.9 - PNEUMONIA, UNSPECIFIED ORGANISM (2) Abdominal pain Assessment/Plan: Gastritis H/O erosive gastritis Pt tolerating diet Code(s): R10.9 - UNSPECIFIED ABDOMINAL PAIN (3) UTI (urinary tract infection) Assessment/Plan: Urine culture (+) for E.Coli BC remain negative COnt IV zosyn Code(s): N39.0 - URINARY TRACT INFECTION, SITE NOT SPECIFIED (4) Diabetes Assessment/Plan: Cont sliding scale w/ coverage Code(s): E11.9 - TYPE 2 DIABETES MELLITUS WITHOUT COMPLICATIONS (5) HTN (hypertension) Assessment/Plan: BP stable Heart rate slightly elevated Code(s): I10 - ESSENTIAL (PRIMARY) HYPERTENSION (6) Sepsis Assessment/Plan: Resolved Due to pneumonia vs ?UTI Lactic acidosis wc normalized w/ IV hydration Cont IV atnibx Code(s): A41.9 - SEPSIS, UNSPECIFIED ORGANISM
--- NOTE | 2019-09-30 18:19 | PN.GI ---
GI Progress Note Subjective: still with burning epigastric pain - Objective Vital Signs: Vital Signs Temperature 98.6 F 09/30/19 13:00 Pulse Rate 94 H 09/30/19 13:00 Respiratory Rate 09/30/19 13:00 Blood Pressure 116/70 09/30/19 13:00 O2 Sat by Pulse Oximetry (%) 97 09/30/19 09:00 Constitutional: Well Nourished Eyes: Yes: Conjunctiva Clear HENT: Yes: Atraumatic Neck: Yes: Supple Cardiovascular: Yes: Regular Rate and Rhythm Respiratory: Yes: CTA Bilaterally ...Palpate: Yes: Soft, Tenderness, Epigastium. No: Firm/Rigid, Guarding, Hepatomegaly, Mass, Pulsatile Mass Labs: CBC, BMP 09/29/19 06:10 09/29/19 06:10 INR, PTT INR 1.06 (0.83-1.09) 09/26/19 15:40 Problem List - Problems (1) Dyspepsia Assessment/Plan: R> increase Pantoprazole to 40mg bid simethicone 80 mg bid Code(s): R10.13 - EPIGASTRIC PAIN
[2019-10-01] MEDS ORDERED: PIPERACILLIN/TAZOBACTAM 3.375 GM VIAL IVPB ONE ×3 (01:25→16:38)
[2019-10-01] MEDS ORDERED: DEXTROSE 5%-WATER - 50 ML IVPB ONE ×3 (01:25→16:38)
[2019-10-01] MEDS: PIPERACILLIN/TAZOB 3.375 GM 3.375 GM in DEXTROSE 5%-WATER - 50 ML IVPB SCH ×3 (01:45→17:08)
[2019-10-01] MEDS: DEXTROSE 5%-0.45% SALINE 1,000 ML IV SCH ×2 (01:48→22:10)
[2019-10-01] MEDS: INSULIN SLIDING SCALE (NOVOLOG) 1 VIAL SQ SCH ×4 (06:08→21:26)
[2019-10-01] MEDS: GABAPENTIN 300 MG CAPSULE PO SCH ×3 (06:09→21:26)
[2019-10-01] MEDS: METOCLOPRAMIDE HCL 10 MG TABLET (FP) PO SCH ×4 (06:09→21:26)
[2019-10-01] MEDS: PARoxetine HCL 20 MG TABLET PO SCH (09:30)
[2019-10-01] MEDS: HEPARIN NA (PORCINE) 5,000 UNITS/ML 1ML VIAL SQ SCH ×2 (09:30→21:26)
[2019-10-01] MEDS: SIMETHICONE 80 MG TAB.CHEW (FP) PO SCH ×3 (09:31→21:26)
[2019-10-01] MEDS: PANTOPRAZOLE 40 MG TABLET PO SCH (09:31)
[2019-10-01] MEDS: AMITRIPTYLINE HCL 10 MG TABLET PO SCH (09:32)
[2019-10-01] MEDS ORDERED: PT OWN MED DRAWER 7, Y5N ONE (09:35)
--- NOTE | 2019-10-01 13:02 | PN ---
Progress Note (short form) - Note Progress Note: Breathing feels OK. Still with some GI discomfort. No acute events overnight. Intake & Output 09/28/19 09/29/19 09/30/19 10/01/19 23:59 23:59 23:59 23:59 Intake Total 1615 2750 2395 755 Balance 1615 2750 2395 755 Weight 155 lb Last Vital Signs Temp Pulse Resp BP Pulse Ox 98.4 F 101 H 20 133/67 94 L 10/01/19 06:00 10/01/19 06:00 10/01/19 06:00 10/01/19 06:00 09/30/19 21:00 Active Medications Amitriptyline HCl (Elavil -) 10 mg PO DAILY [facility] Last Admin: 10/01/19 09:32 Dose: 10 mg Documented by: Gabapentin (Neurontin -) 600 mg PO TID [facility] Last Admin: 10/01/19 06:09 Dose: 600 mg Documented by: Heparin Sodium (Porcine) (Heparin -) 5,000 unit SQ BID [facility] Last Admin: 10/01/19 09:30 Dose: 5,000 unit Documented by: Dextrose/Sodium Chloride (D5-1/2ns -) 1,000 mls @ 75 mls/hr IV ASDIR [facility] Last Admin: 10/01/19 01:48 Dose: 75 mls/hr Documented by: Piperacillin Sod/Tazobactam (Sod 3.375 gm/ Dextrose) 50 mls @ 100 mls/hr IVPB Q8H-IV [facility]; Protocol Last Admin: 10/01/19 09:33 Dose: 100 mls/hr Documented by: Insulin Aspart (Novolog Vial Sliding Scale -) 1 vial SQ ACHS [facility]; Protocol Last Admin: 10/01/19 11:22 Dose: 6 units Documented by: Metoclopramide HCl (Reglan -) 5 mg PO ACHS [facility] Last Admin: 10/01/19 11:23 Dose: 5 mg Documented by: Ondansetron HCl (Zofran Injection) 4 mg IVPUSH Q6H PRN PRN Reason: NAUSEA AND/OR VOMITING Last Admin: 09/29/19 09:08 Dose: 4 mg Documented by: Pantoprazole Sodium (Protonix -) 40 mg PO DAILY [facility] Last Admin: 10/01/19 09:31 Dose: 40 mg Documented by: Paroxetine HCl (Paxil -) 40 mg PO DAILY [facility] Last Admin: 10/01/19 09:30 Dose: 40 mg Documented by: Simethicone (Mylicon -) 80 mg PO QID [facility] Last Admin: 10/01/19 09:31 Dose: 80 mg Documented by: Constitutional: Yes: Well Nourished, NAD Eyes: Yes: WNL HENT: Yes: WNL Neck: Yes: WNL Cardiovascular: Yes: Regular Rate and Rhythm, S1, S2 Respiratory: Yes: Diminished at the bases Gastrointestinal: Yes: Normal Bowel Sounds, Soft Extremities: Yes: WNL Edema: No Labs: Laboratory Results - last 24 hr 09/30/19 10/01/19 10/01/19 21:16 05:24 11:16 POC Glucometer 238 245 297 Problem List - Problems (1) Suspected 2019 novel coronavirus infection Code(s): Z20.828 - CONTACT W AND EXPOSURE TO OTH VIRAL COMMUNICABLE DISEASES (2) Pneumonia Code(s): J18.9 - PNEUMONIA, UNSPECIFIED ORGANISM (3) Epigastric abdominal pain Code(s): R10.13 - EPIGASTRIC PAIN (4) HTN (hypertension) Code(s): I10 - ESSENTIAL (PRIMARY) HYPERTENSION (5) Diabetes Code(s): E11.9 - TYPE 2 DIABETES MELLITUS WITHOUT COMPLICATIONS Assessment/Plan IMP RUL,RML INFILTRATES COUGH COVID 19 NEGATIVE EPIGASTRIC PAIN HTN IDDM ELEVATED LACTATE CORRECTED PLAN O2 NEEDED ABX PER ID COVID PRR NEGATIVE GI WORKUP ONGOING Dr Hernandez
--- NOTE | 2019-10-01 17:24 | PN ---
Progress Note, Physician History of Present Illness: Pt c/o abdominal bloating/discomfort. No other specific complaints. Remains afebrile. - Current Medication List Current Medications: Active Medications Amitriptyline HCl (Elavil -) 10 mg PO DAILY [facility] Last Admin: 10/01/19 09:32 Dose: 10 mg Documented by: Gabapentin (Neurontin -) 600 mg PO TID [facility] Last Admin: 10/01/19 14:10 Dose: 600 mg Documented by: Heparin Sodium (Porcine) (Heparin -) 5,000 unit SQ BID [facility] Last Admin: 10/01/19 09:30 Dose: 5,000 unit Documented by: Dextrose/Sodium Chloride (D5-1/2ns -) 1,000 mls @ 75 mls/hr IV ASDIR [facility] Last Admin: 10/01/19 01:48 Dose: 75 mls/hr Documented by: Piperacillin Sod/Tazobactam (Sod 3.375 gm/ Dextrose) 50 mls @ 100 mls/hr IVPB Q8H-IV [facility]; Protocol Last Admin: 10/01/19 17:08 Dose: 100 mls/hr Documented by: Insulin Aspart (Novolog Vial Sliding Scale -) 1 vial SQ [facility]; Protocol Last Admin: 10/01/19 16:25 Dose: 6 units Documented by: Metoclopramide HCl (Reglan -) 5 mg PO ACHS [facility] Last Admin: 10/01/19 16:30 Dose: 5 mg Documented by: Ondansetron HCl (Zofran Injection) 4 mg IVPUSH Q6H PRN PRN Reason: NAUSEA AND/OR VOMITING Last Admin: 09/29/19 09:08 Dose: 4 mg Documented by: Pantoprazole Sodium (Protonix -) 40 mg PO DAILY [facility] Last Admin: 10/01/19 09:31 Dose: 40 mg Documented by: Paroxetine HCl (Paxil -) 40 mg PO DAILY [facility] Last Admin: 10/01/19 09:30 Dose: 40 mg Documented by: Simethicone (Mylicon -) 80 mg PO QID [facility] Last Admin: 10/01/19 14:10 Dose: 80 mg Documented by: - Objective Vital Signs: Vital Signs Temperature 98.4 F 10/01/19 17:00 Pulse Rate 102 H 10/01/19 17:00 Respiratory Rate 18 10/01/19 17:00 Blood Pressure 129/73 10/01/19 17:00 O2 Sat by Pulse Oximetry (%) 96 10/01/19 09:00 Constitutional: Yes: No Distress, Calm Eyes: Yes: Conjunctiva Clear HENT: Yes: Atraumatic Neck: Yes: Supple Cardiovascular: Yes: Tachycardia Respiratory: Yes: Regular Gastrointestinal: Yes: Normal Bowel Sounds, Soft, Tenderness (epigastric, no guarding/rigidity) Genitourinary: Yes: WNL Musculoskeletal: Yes: WNL Extremities: Yes: WNL Integumentary: Yes: WNL Neurological: Yes: Alert, Oriented Labs: CBC, BMP 09/29/19 06:10 09/29/19 06:10 INR, PTT INR 1.06 (0.83-1.09) 09/26/19 15:40 Laboratory Last Values WBC 5.9 K/mm3 (4.0-10.0) 09/29/19 06:10 RBC 4.04 M/mm3 (3.60-5.2) 09/29/19 06:10 Hgb 12.5 GM/dL (10.7-15.3) 09/29/19 06:10 Hct 37.1 % (32.4-45.2) 09/29/19 06:10 MCV 91.9 fl (80-96) 09/29/19 06:10 MCH 30.9 pg (25.7-33.7) 09/29/19 06:10 MCHC 33.7 g/dl (32.0-36.0) 09/29/19 06:10 RDW 15.3 % (11.6-15.6) 09/29/19 06:10 Plt Count 271 K/MM3 (134-434) 09/29/19 06:10 MPV 8.5 fl (7.5-11.1) 09/29/19 06:10 Absolute Neuts (auto) 3.8 K/mm3 (1.5-8.0) 09/29/19 06:10 Neutrophils % 65.0 % (42.8-82.8) 09/29/19 06:10 Neutrophils % (Manual) 87.9 % (42.8-82.8) H 09/26/19 15:40 Band Neutrophils % 0.0 % 09/26/19 15:40 Lymphocytes % 22.7 % (8-40) D 09/29/19 06:10 Lymphocytes % (Manual) 3.0 % (8-40) L 09/26/19 15:40 Monocytes % 10.6 % (3.8-10.2) H 09/29/19 06:10 Monocytes % (Manual) 7 % (3.8-10.2) 09/26/19 15:40 Eosinophils % 1.2 % (0-4.5) D 09/29/19 06:10 Eosinophils % (Manual) 1.0 % (0-4.5) 09/26/19 15:40 Basophils % 0.5 % (0-2.0) 09/29/19 06:10 Basophils % (Manual) 0.0 % (0-2.0) 09/26/19 15:40 Myelocytes % (Man) 0 % (0-2) 09/26/19 15:40 Promyelocytes % (Man) 0 % (0-2) 09/26/19 15:40 Blast Cells % (Manual) 0 % (0-0) 09/26/19 15:40 Nucleated RBC % 0 % (0-0) 09/29/19 06:10 Metamyelocytes 0 % (0-2) 09/26/19 15:40 PT with INR 12.50 SEC (9.7-13.0) 09/26/19 15:40 INR 1.06 (0.83-1.09) 09/26/19 15:40 PTT (Actin FS) 28.1 SECONDS (25.2-36.5) 09/26/19 15:40 VBG pH 7.38 (7.31-7.41) 09/26/19 15:40 POC VBG pCO2 36.1 mmHg (38-52) L 09/26/19 15:40 POC VBG pO2 < 49 mmHg (28-48) H 09/26/19 15:40 VBG HCO3 20.9 mmol/L (23-29) L 09/26/19 15:40 VBG O2 Sat (Victoriano) 47.8 % (70-80) L 09/26/19 15:40 VBG Base Excess -3.5 mmol/L (-2-2) L 09/26/19 15:40 Sodium 138 mmol/L (136-145) 09/29/19 06:10 Potassium 4.3 mmol/L (3.5-5.1) 09/29/19 06:10 Chloride 105 mmol/L (98-107) 09/29/19 06:10 Carbon Dioxide 25 mmol/L (21-32) 09/29/19 06:10 Anion Gap 8 MMOL/L (8-16) 09/29/19 06:10 BUN 5.7 mg/dL (7-18) L 09/29/19 06:10 Creatinine 0.8 mg/dL (0.55-1.3) 09/29/19 06:10 Est GFR (CKD-EPI)AfAm 90.30 09/29/19 06:10 Est GFR (CKD-EPI)NonAf 77.91 09/29/19 06:10 POC Glucometer 277 UNITS (80-120) 10/01/19 16:13 Random Glucose 155 mg/dL (74-106) H 09/29/19 06:10 Lactic Acid 1.1 mmol/L (0.4-2.0) 09/27/19 06:27 Calcium 8.9 mg/dL (8.5-10.1) 09/29/19 06:10 Ferritin 10.4 ng/ml (8-388) 09/26/19 15:40 Total Bilirubin 0.5 mg/dL (0.2-1) 09/29/19 06:10 Direct Bilirubin 0.2 mg/dL (0.0-0.2) 09/26/19 15:40 AST 12 U/L (15-37) L 09/29/19 06:10 ALT 18 U/L (13-61) 09/29/19 06:10 Alkaline Phosphatase 102 U/L (45-117) 09/29/19 06:10 LD Total 188 U/L (84-246) 09/26/19 15:40 Creatine Kinase 135 U/L (26-192) 09/26/19 15:40 Troponin I < 0.02 ng/ml (0.00-0.05) 09/26/19 15:40 C-Reactive Protein 0.4 MG/DL (0.00-0.3) H 09/26/19 15:40 Total Protein 6.9 g/dl (6.4-8.2) 09/29/19 06:10 Albumin 3.1 g/dl (3.4-5.0) L 09/29/19 06:10 Total Amylase 24 U/L (25-115) L 09/28/19 05:25 Lipase 71 U/L (73-393) L 09/28/19 05:25 Urine Color Yellow 09/26/19 17:20 Urine Appearance Clear 09/26/19 17:20 Urine pH 6.0 (5.0-8.0) 09/26/19 17:20 Ur Specific [place] 1.005 (1.010-1.035) L 09/26/19 17:20 Urine Protein Negative (NEGATIVE) 09/26/19 17:20 Urine Glucose (UA) Negative (NEGATIVE) 09/26/19 17:20 Urine Ketones Negative (NEGATIVE) 09/26/19 17:20 Urine Blood Negative (NEGATIVE) 09/26/19 17:20 Urine Nitrite Negative (NEGATIVE) 09/26/19 17:20 Urine Bilirubin Negative (NEGATIVE) 09/26/19 17:20 Urine Urobilinogen 1.0 mg/dL (0.2-1.0) 09/26/19 17:20 Ur Leukocyte Esterase Trace (NEGATIVE) 09/26/19 17:20 Urine WBC (Auto) 17.4 /uL (0-25.8) 09/26/19 17:20 Urine RBC (Auto) 2.0 /uL (0-23.9) 09/26/19 17:20 U Epithel Cells (Auto) 2.6 /uL (0-25.1) 09/26/19 17:20 Urine Bacteria (Auto) 12075.7 /uL (0-1359) 09/26/19 17:20 COVID-19 (GEORGE) Not detected (Not Detected) 09/26/19 17:30 Microbiology 09/26/19 15:40 Blood - Peripheral Venous Blood Culture - Final NO GROWTH AFTER 5 DAYS INCUBATION 09/26/19 15:40 Blood - Peripheral Venous Blood Culture - Final NO GROWTH AFTER 5 DAYS INCUBATION 09/26/19 17:20 Urine - Urine Clean Catch Urine Culture - Final Escherichia Coli Problem List - Problems (1) Abdominal pain Code(s): R10.9 - UNSPECIFIED ABDOMINAL PAIN (2) Diabetes Code(s): E11.9 - TYPE 2 DIABETES MELLITUS WITHOUT COMPLICATIONS (3) HTN (hypertension) Code(s): I10 - ESSENTIAL (PRIMARY) HYPERTENSION (4) Pneumonia Code(s): J18.9 - PNEUMONIA, UNSPECIFIED ORGANISM (5) Sepsis Code(s): A41.9 - SEPSIS, UNSPECIFIED ORGANISM (6) UTI (urinary tract infection) Code(s): N39.0 - URINARY TRACT INFECTION, SITE NOT SPECIFIED Assessment/Plan UTI PNA Abd pain/vomiting Leukocytosis DM -- afebrile/wbc normal, without acute distress -- continue antibiotics -- GI following for possible gastritis -- continue monitor
[2019-10-01] MEDS ORDERED: INSULIN (NOVOLOG) ASPART 100 UNITS/ML 10ML VIAL ONE (21:07)
--- NOTE | 2019-10-01 21:46 | PN ---
Progress Note, Physician History of Present Illness: Pt still w/ epigastric pain - Current Medication List Current Medications: Active Medications Amitriptyline HCl (Elavil -) 10 mg PO DAILY [facility] Last Admin: 10/01/19 09:32 Dose: 10 mg Documented by: Gabapentin (Neurontin -) 600 mg PO TID [facility] Last Admin: 10/01/19 21:26 Dose: 600 mg Documented by: Heparin Sodium (Porcine) (Heparin -) 5,000 unit SQ BID [facility] Last Admin: 10/01/19 21:26 Dose: 5,000 unit Documented by: Dextrose/Sodium Chloride (D5-1/2ns -) 1,000 mls @ 75 mls/hr IV ASDIR [facility] Last Admin: 10/01/19 01:48 Dose: 75 mls/hr Documented by: Piperacillin Sod/Tazobactam (Sod 3.375 gm/ Dextrose) 50 mls @ 100 mls/hr IVPB Q8H-IV [facility]; Protocol Last Admin: 10/01/19 17:08 Dose: 100 mls/hr Documented by: Insulin Aspart (Novolog Vial Sliding Scale -) [address] [facility]; Protocol Last Admin: 10/01/19 21:26 Dose: 6 units Documented by: Metoclopramide HCl (Reglan -) 5 mg PO ACHS [facility] Last Admin: 10/01/19 21:26 Dose: 5 mg Documented by: Ondansetron HCl (Zofran Injection) 4 mg IVPUSH Q6H PRN PRN Reason: NAUSEA AND/OR VOMITING Last Admin: 09/29/19 09:08 Dose: 4 mg Documented by: Pantoprazole Sodium (Protonix -) 40 mg PO DAILY [facility] Last Admin: 10/01/19 09:31 Dose: 40 mg Documented by: Paroxetine HCl (Paxil -) 40 mg PO DAILY [facility] Last Admin: 10/01/19 09:30 Dose: 40 mg Documented by: Simethicone (Mylicon -) 80 mg PO QID [facility] Last Admin: 10/01/19 21:26 Dose: 80 mg Documented by: - Objective Vital Signs: Vital Signs Temperature 98.1 F 10/01/19 21:35 Pulse Rate 93 H 10/01/19 21:35 Respiratory Rate 20 10/01/19 21:35 Blood Pressure 128/57 L 10/01/19 21:35 O2 Sat by Pulse Oximetry (%) 96 10/01/19 09:00 Cardiovascular: Yes: WNL, Regular Rate and Rhythm Respiratory: Yes: WNL, Regular, CTA Bilaterally Gastrointestinal: Yes: WNL, Normal Bowel Sounds, Soft Labs: CBC, BMP 09/29/19 06:10 09/29/19 06:10 INR, PTT INR 1.06 (0.83-1.09) 09/26/19 15:40 Problem List - Problems (1) Abdominal pain Assessment/Plan: Gastritis H/O erosive gastritis Cont protonix/reglan Dose of protonix increased Simethicone added Code(s): R10.9 - UNSPECIFIED ABDOMINAL PAIN (2) Pneumonia Assessment/Plan: Cont IV zosyn RUL/RML infitlrate COVID is negative Code(s): J18.9 - PNEUMONIA, UNSPECIFIED ORGANISM (3) UTI (urinary tract infection) Assessment/Plan: Lactose fermenting neg bacilli COnt IV zosyn Code(s): N39.0 - URINARY TRACT INFECTION, SITE NOT SPECIFIED (4) Diabetes Assessment/Plan: Cont sliding scale w/ coverage Code(s): E11.9 - TYPE 2 DIABETES MELLITUS WITHOUT COMPLICATIONS (5) HTN (hypertension) Assessment/Plan: BP stable Heart rate slightly elevated Code(s): I10 - ESSENTIAL (PRIMARY) HYPERTENSION
[2019-10-02] MEDS ORDERED: DEXTROSE 5%-WATER - 50 ML IVPB ONE ×3 (01:39→16:33)
[2019-10-02] MEDS ORDERED: PIPERACILLIN/TAZOBACTAM 3.375 GM VIAL IVPB ONE ×3 (01:39→16:33)
[2019-10-02] MEDS: PIPERACILLIN/TAZOB 3.375 GM 3.375 GM in DEXTROSE 5%-WATER - 50 ML IVPB SCH ×3 (01:42→17:09)
[2019-10-02] MEDS: DEXTROSE 5%-0.45% SALINE 1,000 ML IV SCH ×2 (01:42→14:48)
[2019-10-02] MEDS ORDERED: INSULIN (NOVOLOG) ASPART 100 UNITS/ML 10ML VIAL ONE ×3 (06:36→22:10)
[2019-10-02] MEDS: GABAPENTIN 300 MG CAPSULE PO SCH ×3 (06:38→22:33)
[2019-10-02] MEDS: INSULIN SLIDING SCALE (NOVOLOG) 1 VIAL SQ SCH ×4 (06:38→22:33)
[2019-10-02] MEDS: METOCLOPRAMIDE HCL 10 MG TABLET (FP) PO SCH ×4 (06:39→22:33)
[2019-10-02 06:45] LABS: BASO % 0.4 % (0-2.0); EOS % 1.3 % (0-4.5); HEMOGLOBIN 12.6 GM/dL (10.7-15.3); LYMPH % 23.5 % (8-40); MCH 31.1 pg (25.7-33.7); MCHC 34.2 g/dl (32.0-36.0); MEAN CELL VOLUME 91.1 fl (80-96); MEAN PLT VOLUME 8.4 fl (7.5-11.1); MONO % 7.7 % (3.8-10.2); NEUT % 67.1 % (42.8-82.8); PLATELET COUNT 318 K/MM3 (134-434); RBC 4.06 M/mm3 (3.60-5.2); RDW 15.1 % (11.6-15.6); WHITE BLOOD COUNT 7.5 K/mm3 (4.0-10.0)
[2019-10-02 07:21] LABS: ALBUMIN 3.4 g/dl (3.4-5.0); BLOOD UREA NITROGEN 6.7 mg/dL (7-18); CREATININE 0.8 mg/dL (0.55-1.3); POTASSIUM 4.3 mmol/L (3.5-5.1)
[2019-10-02 07:23] LABS: BILIRUBIN,TOTAL 0.4 mg/dL (0.2-1); TOT PROT 7.2 g/dl (6.4-8.2)
[2019-10-02] MEDS ORDERED: PT OWN MED DRAWER 7, Y5N ONE (09:15)
[2019-10-02] MEDS: PARoxetine HCL 20 MG TABLET PO SCH (09:31)
[2019-10-02] MEDS: HEPARIN NA (PORCINE) 5,000 UNITS/ML 1ML VIAL SQ SCH ×2 (09:31→22:32)
[2019-10-02] MEDS: SIMETHICONE 80 MG TAB.CHEW (FP) PO SCH ×4 (09:32→22:33)
[2019-10-02] MEDS: AMITRIPTYLINE HCL 10 MG TABLET PO SCH (09:32)
[2019-10-02] MEDS: PANTOPRAZOLE 40 MG TABLET PO SCH (09:32)
--- NOTE | 2019-10-02 09:40 | PN ---
Progress Note, Physician History of Present Illness: feels better no complaints abd pain better - Current Medication List Current Medications: Active Medications Amitriptyline HCl (Elavil -) 10 mg PO DAILY [facility] Last Admin: 10/02/19 09:32 Dose: 10 mg Documented by: Gabapentin (Neurontin -) 600 mg PO TID [facility] Last Admin: 10/02/19 06:38 Dose: 600 mg Documented by: Heparin Sodium (Porcine) (Heparin -) 5,000 unit SQ BID [facility] Last Admin: 10/02/19 09:31 Dose: 5,000 unit Documented by: Dextrose/Sodium Chloride (D5-1/2ns -) 1,000 mls @ 75 mls/hr IV ASDIR [facility] Last Admin: 10/02/19 01:42 Dose: Not Given Documented by: Piperacillin Sod/Tazobactam (Sod 3.375 gm/ Dextrose) 50 mls @ 100 mls/hr IVPB Q8H-IV [facility]; Protocol Last Admin: 10/02/19 09:31 Dose: 100 mls/hr Documented by: Insulin Aspart (Novolog Vial Sliding Scale -) 1 vial SQ [facility]; Protocol Last Admin: 10/02/19 06:38 Dose: 4 units Documented by: Metoclopramide HCl (Reglan -) 5 mg PO ACHS [facility] Last Admin: 10/02/19 06:39 Dose: 5 mg Documented by: Ondansetron HCl (Zofran Injection) 4 mg IVPUSH Q6H PRN PRN Reason: NAUSEA AND/OR VOMITING Last Admin: 09/29/19 09:08 Dose: 4 mg Documented by: Pantoprazole Sodium (Protonix -) 40 mg PO DAILY [facility] Last Admin: 10/02/19 09:32 Dose: 40 mg Documented by: Paroxetine HCl (Paxil -) 40 mg PO DAILY [facility] Last Admin: 10/02/19 09:31 Dose: 40 mg Documented by: Simethicone (Mylicon -) 80 mg PO QID [facility] Last Admin: 10/02/19 09:32 Dose: 80 mg Documented by: - Objective Vital Signs: Vital Signs Temperature 98.2 F 10/02/19 05:00 Pulse Rate 96 H 10/02/19 05:00 Respiratory Rate 18 10/02/19 05:00 Blood Pressure 113/73 10/02/19 05:00 O2 Sat by Pulse Oximetry (%) 96 10/01/19 21:00 Constitutional: Yes: No Distress, Calm Cardiovascular: Yes: Regular Rate and Rhythm Respiratory: Yes: Regular, CTA Bilaterally Gastrointestinal: Yes: Normal Bowel Sounds, Soft Musculoskeletal: Yes: WNL Extremities: Yes: WNL Neurological: Yes: Alert, Oriented Psychiatric: Yes: Alert, Oriented Labs: CBC, BMP 10/02/19 05:39 10/02/19 06:00 INR, PTT INR 1.06 (0.83-1.09) 09/26/19 15:40 Assessment/Plan Problem List - Problems (1) Abdominal pain Code(s): R10.9 - UNSPECIFIED ABDOMINAL PAIN (2) Diabetes Code(s): E11.9 - TYPE 2 DIABETES MELLITUS WITHOUT COMPLICATIONS (3) HTN (hypertension) Code(s): I10 - ESSENTIAL (PRIMARY) HYPERTENSION (4) Pneumonia Code(s): J18.9 - PNEUMONIA, UNSPECIFIED ORGANISM (5) Sepsis Code(s): A41.9 - SEPSIS, UNSPECIFIED ORGANISM (6) UTI (urinary tract infection) Code(s): N39.0 - URINARY TRACT INFECTION, SITE NOT SPECIFIED Assessment/Plan UTI PNA Abd pain/vomiting Leukocytosis DM plan will deescalte abx soon await for final plan gi on board rest as per the team
--- NOTE | 2019-10-02 14:18 | PN ---
Progress Note (short form) - Note Progress Note: Breathing feels OK. No CP or SOB. Abdominal symptoms improving. No acute events overnight. Intake & Output 09/29/19 09/30/19 10/01/19 10/02/19 23:59 23:59 23:59 23:59 Intake Total 2750 2395 2155 725 Balance 2750 2395 2155 725 Last Vital Signs Temp Pulse Resp BP Pulse Ox 98.5 F 99 H 19 130/77 95 10/02/19 09:00 10/02/19 09:00 10/02/19 09:00 10/02/19 09:00 10/02/19 09:00 Active Medications Amitriptyline HCl (Elavil -) 10 mg PO DAILY [facility] Last Admin: 10/02/19 09:32 Dose: 10 mg Documented by: Gabapentin (Neurontin -) 600 mg PO TID [facility] Last Admin: 10/02/19 13:44 Dose: 600 mg Documented by: Heparin Sodium (Porcine) (Heparin -) 5,000 unit SQ BID [facility] Last Admin: 10/02/19 09:31 Dose: 5,000 unit Documented by: Dextrose/Sodium Chloride (D5-1/2ns -) 1,000 mls @ 75 mls/hr IV ASDIR [facility] Last Admin: 10/02/19 01:42 Dose: Not Given Documented by: Piperacillin Sod/Tazobactam (Sod 3.375 gm/ Dextrose) 50 mls @ 100 mls/hr IVPB Q8H-IV [facility]; Protocol Last Admin: 10/02/19 09:31 Dose: 100 mls/hr Documented by: Insulin Aspart (Novolog Vial Sliding Scale -) 1 vial SQ [facility]; Protocol Last Admin: 10/02/19 10:40 Dose: 8 units Documented by: Metoclopramide HCl (Reglan -) 5 mg PO ACHS [facility] Last Admin: 10/02/19 10:42 Dose: 5 mg Documented by: Ondansetron HCl (Zofran Injection) 4 mg IVPUSH Q6H PRN PRN Reason: NAUSEA AND/OR VOMITING Last Admin: 09/29/19 09:08 Dose: 4 mg Documented by: Pantoprazole Sodium (Protonix -) 40 mg PO DAILY [facility] Last Admin: 10/02/19 09:32 Dose: 40 mg Documented by: Paroxetine HCl (Paxil -) 40 mg PO DAILY [facility] Last Admin: 10/02/19 09:31 Dose: 40 mg Documented by: Simethicone (Mylicon -) 80 mg PO QID [facility] Last Admin: 10/02/19 13:44 Dose: 80 mg Documented by: Constitutional: Yes: Well Nourished, NAD Eyes: Yes: WNL HENT: Yes: WNL Neck: Yes: WNL Cardiovascular: Yes: Regular Rate and Rhythm, S1, S2 Respiratory: Yes: Diminished at the bases Gastrointestinal: Yes: Normal Bowel Sounds, Soft Extremities: Yes: WNL Edema: No Labs: Laboratory Results - last 24 hr 10/01/19 10/01/19 10/02/19 16:13 21:24 05:38 WBC RBC Hgb Hct MCV MCH MCHC RDW Plt Count MPV Absolute Neuts (auto) Neutrophils % Lymphocytes % Monocytes % Eosinophils % Basophils % Nucleated RBC % Sodium Potassium Chloride Carbon Dioxide Anion Gap BUN Creatinine Est GFR (CKD-EPI)AfAm Est GFR (CKD-EPI)NonAf POC Glucometer 277 271 236 Random Glucose Calcium Total Bilirubin AST ALT Alkaline Phosphatase Total Protein Albumin 10/02/19 10/02/19 10/02/19 05:39 06:00 10:37 WBC 7.5 RBC 4.06 Hgb 12.6 Hct 37.0 MCV 91.1 MCH 31.1 MCHC 34.2 RDW 15.1 Plt Count 318 MPV 8.4 Absolute Neuts (auto) 5.1 Neutrophils % 67.1 Lymphocytes % 23.5 Monocytes % 7.7 Eosinophils % 1.3 Basophils % 0.4 Nucleated RBC % 0 Sodium 137 Potassium 4.3 Chloride 102 Carbon Dioxide 25 Anion Gap 10 BUN 6.7 L Creatinine 0.8 Est GFR (CKD-EPI)AfAm 90.30 Est GFR (CKD-EPI)NonAf 77.91 POC Glucometer 310 Random Glucose 241 H Calcium 9.0 Total Bilirubin 0.4 AST 14 L ALT 21 Alkaline Phosphatase 101 Total Protein 7.2 Albumin 3.4 Problem List - Problems (1) Suspected 2019 novel coronavirus infection Code(s): Z20.828 - CONTACT W AND EXPOSURE TO OTH VIRAL COMMUNICABLE DISEASES (2) Pneumonia Code(s): J18.9 - PNEUMONIA, UNSPECIFIED ORGANISM (3) Epigastric abdominal pain Code(s): R10.13 - EPIGASTRIC PAIN (4) HTN (hypertension) Code(s): I10 - ESSENTIAL (PRIMARY) HYPERTENSION (5) Diabetes Code(s): E11.9 - TYPE 2 DIABETES MELLITUS WITHOUT COMPLICATIONS Assessment/Plan IMP RUL,RML INFILTRATES COUGH COVID 19 NEGATIVE EPIGASTRIC PAIN HTN IDDM ELEVATED LACTATE CORRECTED PLAN O2 NEEDED ABX PER ID GI WORKUP ONGOING Dr Hernandez
[2019-10-02] MEDS: POLYETHYLENE GLYCOL 3350 119 GM BTL PO SCH (17:19)
--- NOTE | 2019-10-02 22:25 | PN ---
Progress Note, Physician History of Present Illness: No new complaints - Current Medication List Current Medications: Active Medications Amitriptyline HCl (Elavil -) 10 mg PO DAILY [facility] Last Admin: 10/02/19 09:32 Dose: 10 mg Documented by: Gabapentin (Neurontin -) 600 mg PO TID [facility] Last Admin: 10/02/19 13:44 Dose: 600 mg Documented by: Heparin Sodium (Porcine) (Heparin -) 5,000 unit SQ BID [facility] Last Admin: 10/02/19 09:31 Dose: 5,000 unit Documented by: Piperacillin Sod/Tazobactam (Sod 3.375 gm/ Dextrose) 50 mls @ 100 mls/hr IVPB Q8H-IV [facility]; Protocol Last Admin: 10/02/19 17:09 Dose: 100 mls/hr Documented by: Insulin Aspart (Novolog Vial Sliding Scale -) 1 vial SQ [facility]; Protocol Last Admin: 10/02/19 16:42 Dose: 2 units Documented by: Metoclopramide HCl (Reglan -) 5 mg PO ACHS PENDING SALE TO [facility] Last Admin: 10/02/19 16:42 Dose: 5 mg Documented by: Ondansetron HCl (Zofran Injection) 4 mg IVPUSH Q6H PRN PRN Reason: NAUSEA AND/OR VOMITING Last Admin: 09/29/19 09:08 Dose: 4 mg Documented by: Pantoprazole Sodium (Protonix -) 40 mg PO DAILY PENDING SALE TO [facility] Last Admin: 10/02/19 09:32 Dose: 40 mg Documented by: Paroxetine HCl (Paxil -) 40 mg PO DAILY PENDING SALE [facility] Last Admin: 10/02/19 09:31 Dose: 40 mg Documented by: Polyethylene Glycol (Miralax (For Daily Use) -) 17 gm PO DAILY PENDING SALE TO [facility] Last Admin: 10/02/19 17:19 Dose: 17 grams Documented by: Simethicone (Mylicon -) 80 mg PO QID PENDING SALE TO [facility] Last Admin: 10/02/19 17:10 Dose: 80 mg Documented by: - Objective Vital Signs: Vital Signs Temperature 98.2 F 10/02/19 18:11 Pulse Rate 95 H 10/02/19 18:11 Respiratory Rate 18 10/02/19 18:11 Blood Pressure 114/69 10/02/19 18:11 O2 Sat by Pulse Oximetry (%) 95 10/02/19 09:00 Neck: Yes: WNL, Supple Cardiovascular: Yes: WNL, Regular Rate and Rhythm Respiratory: Yes: WNL, Regular, CTA Bilaterally Gastrointestinal: Yes: WNL, Normal Bowel Sounds, Soft Labs: CBC, BMP 10/02/19 05:39 10/02/19 06:00 INR, PTT INR 1.06 (0.83-1.09) 09/26/19 15:40 Problem List - Problems (1) Abdominal pain Assessment/Plan: Gastritis H/O erosive gastritis Cont protonix/reglan Cont Simethicone Code(s): R10.9 - UNSPECIFIED ABDOMINAL PAIN (2) Pneumonia Assessment/Plan: Cont IV zosyn RUL/RML infitlrate COVID is negative Code(s): J18.9 - PNEUMONIA, UNSPECIFIED ORGANISM (3) UTI (urinary tract infection) Assessment/Plan: Urine culture is (+) E.Coli3.BC are negative COnt IV zosyn Code(s): N39.0 - URINARY TRACT INFECTION, SITE NOT SPECIFIED (4) Diabetes Assessment/Plan: Cont sliding scale w/ coverage Code(s): E11.9 - TYPE 2 DIABETES MELLITUS WITHOUT COMPLICATIONS (5) HTN (hypertension) Assessment/Plan: BP stable Heart rate slightly elevated Code(s): I10 - ESSENTIAL (PRIMARY) HYPERTENSION
[2019-10-03] MEDS ORDERED: PIPERACILLIN/TAZOBACTAM 3.375 GM VIAL IVPB ONE ×2 (00:49→11:04)
[2019-10-03] MEDS ORDERED: DEXTROSE 5%-WATER - 50 ML IVPB ONE ×2 (00:50→11:04)
[2019-10-03] MEDS: PIPERACILLIN/TAZOB 3.375 GM 3.375 GM in DEXTROSE 5%-WATER - 50 ML IVPB SCH ×2 (01:35→11:07)
[2019-10-03] MEDS: GABAPENTIN 300 MG CAPSULE PO SCH ×3 (05:34→21:02)
[2019-10-03] MEDS: INSULIN SLIDING SCALE (NOVOLOG) 1 VIAL SQ SCH ×4 (05:59→21:04)
[2019-10-03] MEDS: METOCLOPRAMIDE HCL 10 MG TABLET (FP) PO SCH ×4 (06:15→21:05)
[2019-10-03] MEDS: PANTOPRAZOLE 40 MG TABLET PO SCH (11:10)
[2019-10-03] MEDS: POLYETHYLENE GLYCOL 3350 119 GM BTL PO SCH ×2 (11:11→11:26)
[2019-10-03] MEDS: PARoxetine HCL 20 MG TABLET PO SCH (11:11)
[2019-10-03] MEDS: HEPARIN NA (PORCINE) 5,000 UNITS/ML 1ML VIAL SQ SCH ×2 (11:11→21:02)
[2019-10-03] MEDS: SIMETHICONE 80 MG TAB.CHEW (FP) PO SCH ×4 (11:12→21:01)
[2019-10-03] MEDS ORDERED: PT OWN MED DRAWER 7, Y5N ONE (11:13)
[2019-10-03] MEDS: AMITRIPTYLINE HCL 10 MG TABLET PO SCH (11:14)
--- NOTE | 2019-10-03 13:08 | PN ---
Progress Note, Physician History of Present Illness: stable no complaints - Current Medication List Current Medications: Active Medications Amitriptyline HCl (Elavil -) 10 mg PO DAILY [facility] Last Admin: 10/03/19 11:14 Dose: 10 mg Documented by: Gabapentin (Neurontin -) 600 mg PO TID [facility] Last Admin: 10/03/19 05:34 Dose: 600 mg Documented by: Heparin Sodium (Porcine) (Heparin -) 5,000 unit SQ BID [facility] Last Admin: 10/03/19 11:11 Dose: 5,000 unit Documented by: Insulin Aspart (Novolog Vial Sliding Scale -) 1 vial SQ [facility]; Protocol Last Admin: 10/03/19 12:50 Dose: Not Given Documented by: Metoclopramide HCl (Reglan -) 5 mg PO [facility] Last Admin: 10/03/19 11:11 Dose: 5 mg Documented by: Ondansetron HCl (Zofran Injection) 4 mg IVPUSH Q6H PRN PRN Reason: NAUSEA AND/OR VOMITING Last Admin: 09/29/19 09:08 Dose: 4 mg Documented by: Pantoprazole Sodium (Protonix -) 40 mg PO DAILY [facility] Last Admin: 10/03/19 11:10 Dose: 40 mg Documented by: Paroxetine HCl (Paxil -) 40 mg PO DAILY [facility] Last Admin: 10/03/19 11:11 Dose: 40 mg Documented by: Polyethylene Glycol (Miralax (For Daily Use) -) 17 gm PO DAILY [facility] Last Admin: 10/03/19 11:26 Dose: Not Given Documented by: Simethicone (Mylicon -) 80 mg PO QID [facility] Last Admin: 10/03/19 11:12 Dose: 80 mg Documented by: - Objective Vital Signs: Vital Signs Temperature 98.0 F 10/03/19 09:00 Pulse Rate 92 H 10/03/19 09:00 Respiratory Rate 18 10/03/19 09:00 Blood Pressure 103/71 10/03/19 09:00 O2 Sat by Pulse Oximetry (%) 96 10/03/19 09:00 Constitutional: Yes: No Distress, Calm Cardiovascular: Yes: S1, S2 Respiratory: Yes: Regular, CTA Bilaterally Gastrointestinal: Yes: Normal Bowel Sounds, Soft Musculoskeletal: Yes: WNL Extremities: Yes: WNL Neurological: Yes: Alert, Oriented Psychiatric: Yes: Alert, Oriented Labs: CBC, BMP 10/02/19 05:39 10/02/19 06:00 INR, PTT INR 1.06 (0.83-1.09) 09/26/19 15:40 Assessment/Plan Problem List - Problems (1) Abdominal pain Code(s): R10.9 - UNSPECIFIED ABDOMINAL PAIN (2) Diabetes Code(s): E11.9 - TYPE 2 DIABETES MELLITUS WITHOUT COMPLICATIONS (3) HTN (hypertension) Code(s): I10 - ESSENTIAL (PRIMARY) HYPERTENSION (4) Pneumonia Code(s): J18.9 - PNEUMONIA, UNSPECIFIED ORGANISM (5) Sepsis Code(s): A41.9 - SEPSIS, UNSPECIFIED ORGANISM (6) UTI (urinary tract infection) Code(s): N39.0 - URINARY TRACT INFECTION, SITE NOT SPECIFIED Assessment/Plan UTI PNA Abd pain/vomiting Leukocytosis DM plan will stop abx and monitor rest as per the team
--- NOTE | 2019-10-03 16:07 | PN ---
Progress Note (short form) - Note Progress Note: Comfortable on RA. No CP or SOB. Abdominal symptoms improving. No acute events overnight. Intake & Output 09/30/19 10/01/19 10/02/19 10/03/19 23:59 23:59 23:59 23:59 Intake Total 2394 2154 2024 410 Balance 2394 2154 2024 410 Last Vital Signs Temp Pulse Resp BP Pulse Ox 98.5 F 95 H 18 106/69 96 10/03/19 15:23 10/03/19 15:23 10/03/19 15:23 10/03/19 15:23 10/03/19 09:00 Active Medications Amitriptyline HCl (Elavil -) 10 mg PO DAILY [facility] Last Admin: 10/03/19 11:14 Dose: 10 mg Documented by: Gabapentin (Neurontin -) 600 mg PO TID [facility] Last Admin: 10/03/19 15:22 Dose: Not Given Documented by: Heparin Sodium (Porcine) (Heparin -) 5,000 unit SQ BID [facility] Last Admin: 10/03/19 11:11 Dose: 5,000 unit Documented by: Insulin Aspart (Novolog Vial Sliding Scale -) 1 vial SQ [facility]; Protocol Last Admin: 10/03/19 12:50 Dose: Not Given Documented by: Metoclopramide HCl (Reglan -) 5 mg PO ACHS [facility] Last Admin: 10/03/19 11:11 Dose: 5 mg Documented by: Ondansetron HCl (Zofran Injection) 4 mg IVPUSH Q6H PRN PRN Reason: NAUSEA AND/OR VOMITING Last Admin: 09/29/19 09:08 Dose: 4 mg Documented by: Pantoprazole Sodium (Protonix -) 40 mg PO DAILY [facility] Last Admin: 10/03/19 11:10 Dose: 40 mg Documented by: Paroxetine HCl (Paxil -) 40 mg PO DAILY [facility] Last Admin: 10/03/19 11:11 Dose: 40 mg Documented by: Polyethylene Glycol (Miralax (For Daily Use) -) 17 gm PO DAILY [facility] Last Admin: 10/03/19 11:26 Dose: Not Given Documented by: Simethicone (Mylicon -) 80 mg PO QID [facility] Last Admin: 10/03/19 15:22 Dose: Not Given Documented by: Constitutional: Yes: Well Nourished, NAD Eyes: Yes: WNL HENT: Yes: WNL Neck: Yes: WNL Cardiovascular: Yes: Regular Rate and Rhythm, S1, S2 Respiratory: Yes: Diminished at the bases Gastrointestinal: Yes: Normal Bowel Sounds, Soft Extremities: Yes: WNL Edema: No Labs: Laboratory Results - last 24 hr 10/02/19 10/02/19 10/03/19 16:41 21:53 05:57 POC Glucometer 200 289 199 Problem List - Problems (1) Suspected 2019 novel coronavirus infection Code(s): Z20.828 - CONTACT W AND EXPOSURE TO OTH VIRAL COMMUNICABLE DISEASES (2) Pneumonia Code(s): J18.9 - PNEUMONIA, UNSPECIFIED ORGANISM (3) Epigastric abdominal pain Code(s): R10.13 - EPIGASTRIC PAIN (4) HTN (hypertension) Code(s): I10 - ESSENTIAL (PRIMARY) HYPERTENSION (5) Diabetes Code(s): E11.9 - TYPE 2 DIABETES MELLITUS WITHOUT COMPLICATIONS Assessment/Plan IMP RUL,RML INFILTRATES COUGH COVID 19 NEGATIVE EPIGASTRIC PAIN HTN IDDM ELEVATED LACTATE CORRECTED PLAN O2 NEEDED ABX PER ID GI WORKUP ONGOING Dr Hernandez
--- NOTE | 2019-10-03 17:08 | PN ---
Progress Note, Physician History of Present Illness: STABLE - Current Medication List Current Medications: Active Medications Amitriptyline HCl (Elavil -) 10 mg PO DAILY [facility] Last Admin: 10/03/19 11:14 Dose: 10 mg Documented by: Gabapentin (Neurontin -) 600 mg PO TID [facility] Last Admin: 10/03/19 15:22 Dose: Not Given Documented by: Heparin Sodium (Porcine) (Heparin -) 5,000 unit SQ BID [facility] Last Admin: 10/03/19 11:11 Dose: 5,000 unit Documented by: Insulin Aspart (Novolog Vial Sliding Scale -) 1 vial SQ [facility]; Protocol Last Admin: 10/03/19 16:56 Dose: 6 units Documented by: Metoclopramide HCl (Reglan -) 5 mg PO [facility] Last Admin: 10/03/19 11:11 Dose: 5 mg Documented by: Ondansetron HCl (Zofran Injection) 4 mg IVPUSH Q6H PRN PRN Reason: NAUSEA AND/OR VOMITING Last Admin: 09/29/19 09:08 Dose: 4 mg Documented by: Pantoprazole Sodium (Protonix -) 40 mg PO DAILY [facility] Last Admin: 10/03/19 11:10 Dose: 40 mg Documented by: Paroxetine HCl (Paxil -) 40 mg PO DAILY [facility] Last Admin: 10/03/19 11:11 Dose: 40 mg Documented by: Polyethylene Glycol (Miralax (For Daily Use) -) 17 gm PO DAILY [facility] Last Admin: 10/03/19 11:26 Dose: Not Given Documented by: Simethicone (Mylicon -) 80 mg PO QID [facility] Last Admin: 10/03/19 15:22 Dose: Not Given Documented by: - Objective Vital Signs: Vital Signs Temperature 98.5 F 10/03/19 15:23 Pulse Rate 95 H 10/03/19 15:23 Respiratory Rate 18 10/03/19 15:23 Blood Pressure 106/69 10/03/19 15:23 O2 Sat by Pulse Oximetry (%) 96 10/03/19 09:00 Constitutional: Yes: No Distress HENT: Yes: WNL Neck: Yes: Supple Cardiovascular: Yes: Regular Rate and Rhythm Respiratory: Yes: Rhonchi Gastrointestinal: Yes: Normal Bowel Sounds Extremities: Yes: WNL Edema: No Peripheral Pulses WNL: Yes Neurological: Yes: Alert Labs: CBC, BMP 10/02/19 05:39 10/02/19 06:00 INR, PTT INR 1.06 (0.83-1.09) 09/26/19 15:40 Problem List - Problems (1) Abdominal pain Assessment/Plan: g ppx resolved Code(s): R10.9 - UNSPECIFIED ABDOMINAL PAIN (2) Diabetes Assessment/Plan: monitor bgms insulin Code(s): E11.9 - TYPE 2 DIABETES MELLITUS WITHOUT COMPLICATIONS (3) HTN (hypertension) Assessment/Plan: monitor Code(s): I10 - ESSENTIAL (PRIMARY) HYPERTENSION (4) Pneumonia Assessment/Plan: off of abx per id observe Code(s): J18.9 - PNEUMONIA, UNSPECIFIED ORGANISM (5) UTI (urinary tract infection) Code(s): N39.0 - URINARY TRACT INFECTION, SITE NOT SPECIFIED Assessment/Plan COVERING FOR DR LEVY TODAY
[2019-10-04] MEDS: GABAPENTIN 300 MG CAPSULE PO SCH ×2 (05:46→15:20)
[2019-10-04] MEDS: INSULIN SLIDING SCALE (NOVOLOG) 1 VIAL SQ SCH ×2 (06:00→12:34)
[2019-10-04] MEDS: METOCLOPRAMIDE HCL 10 MG TABLET (FP) PO SCH ×2 (06:00→10:26)
[2019-10-04 07:26] LABS: BASO % 0.7 % (0-2.0); EOS % 1.3 % (0-4.5); HEMATOCRIT 39.4 % (32.4-45.2); HEMOGLOBIN 13.3 GM/dL (10.7-15.3); LYMPH % 21.6 % (8-40); MCHC 33.7 g/dl (32.0-36.0); MEAN CELL VOLUME 91.8 fl (80-96); MONO % 7.1 % (3.8-10.2); NEUT % 69.3 % (42.8-82.8); PLATELET COUNT 310 K/MM3 (134-434); RBC 4.29 M/mm3 (3.60-5.2); WHITE BLOOD COUNT 8.8 K/mm3 (4.0-10.0)
[2019-10-04 07:36] LABS: ALBUMIN 3.5 g/dl (3.4-5.0); BILIRUBIN,TOTAL 0.3 mg/dL (0.2-1); BLOOD UREA NITROGEN 9.3 mg/dL (7-18); CREATININE 0.8 mg/dL (0.55-1.3); POTASSIUM 4.2 mmol/L (3.5-5.1); TOT PROT 7.7 g/dl (6.4-8.2)
[2019-10-04] MEDS: POLYETHYLENE GLYCOL 3350 119 GM BTL PO SCH (10:23)
[2019-10-04] MEDS ORDERED: PT OWN MED DRAWER 7, Y5N ONE (10:25)
[2019-10-04] MEDS: PARoxetine HCL 20 MG TABLET PO SCH (10:26)
[2019-10-04] MEDS: PANTOPRAZOLE 40 MG TABLET PO SCH (10:26)
[2019-10-04] MEDS: AMITRIPTYLINE HCL 10 MG TABLET PO SCH (10:26)
[2019-10-04] MEDS: SIMETHICONE 80 MG TAB.CHEW (FP) PO SCH ×2 (10:26→15:20)
--- NOTE | 2019-10-04 10:46 | PN ---
Progress Note (short form) - Note Progress Note: Comfortable on RA. No CP or SOB. Still with some intermittent GI symptoms. No acute events overnight. Intake & Output 10/01/19 10/02/19 10/03/19 10/04/19 23:59 23:59 23:59 23:59 Intake Total 2154 2024 660 190 Balance 2154 2024 660 190 Last Vital Signs Temp Pulse Resp BP Pulse Ox 98 F 80 18 125/87 95 10/04/19 09:00 10/04/19 09:00 10/04/19 09:00 10/04/19 09:00 10/04/19 07:55 Active Medications Amitriptyline HCl (Elavil -) 10 mg PO DAILY [facility] Last Admin: 10/04/19 10:26 Dose: 10 mg Documented by: Gabapentin (Neurontin -) 600 mg PO TID [facility] Last Admin: 10/04/19 05:46 Dose: 600 mg Documented by: Insulin Aspart (Novolog Vial Sliding Scale -) 1 vial SQ [facility]; Protocol Last Admin: 10/04/19 06:00 Dose: 4 units Documented by: Metoclopramide HCl (Reglan -) 5 mg PO ACHS [facility] Last Admin: 10/04/19 10:26 Dose: 5 mg Documented by: Ondansetron HCl (Zofran Injection) 4 mg IVPUSH Q6H PRN PRN Reason: NAUSEA AND/OR VOMITING Last Admin: 09/29/19 09:08 Dose: 4 mg Documented by: Pantoprazole Sodium (Protonix -) 40 mg PO DAILY [facility] Last Admin: 10/04/19 10:26 Dose: 40 mg Documented by: Paroxetine HCl (Paxil -) 40 mg PO DAILY [facility] Last Admin: 10/04/19 10:26 Dose: 40 mg Documented by: Polyethylene Glycol (Miralax (For Daily Use) -) 17 gm PO DAILY [facility] Last Admin: 10/04/19 10:23 Dose: Not Given Documented by: Simethicone (Mylicon -) 80 mg PO QID [facility] Last Admin: 10/04/19 10:26 Dose: 80 mg Documented by: Constitutional: Yes: Well Nourished, NAD Eyes: Yes: WNL HENT: Yes: WNL Neck: Yes: WNL Cardiovascular: Yes: Regular Rate and Rhythm, S1, S2 Respiratory: Yes: Diminished at the bases Gastrointestinal: Yes: Normal Bowel Sounds, Soft Extremities: Yes: WNL Edema: No Labs: Laboratory Results - last 24 hr 10/03/19 10/03/19 10/04/19 16:30 20:58 05:42 WBC RBC Hgb Hct MCV MCH MCHC RDW Plt Count MPV Absolute Neuts (auto) Neutrophils % Lymphocytes % Monocytes % Eosinophils % Basophils % Nucleated RBC % Sodium Potassium Chloride Carbon Dioxide Anion Gap BUN Creatinine Est GFR (CKD-EPI)AfAm Est GFR (CKD-EPI)NonAf POC Glucometer 258 247 207 Random Glucose Calcium Total Bilirubin AST ALT Alkaline Phosphatase Total Protein Albumin 10/04/19 10/04/19 06:20 06:20 WBC 8.8 RBC 4.29 Hgb 13.3 Hct 39.4 MCV 91.8 MCH 31.0 MCHC 33.7 RDW 15.0 Plt Count 310 MPV 9.0 Absolute Neuts (auto) 6.1 Neutrophils % 69.3 Lymphocytes % 21.6 Monocytes % 7.1 Eosinophils % 1.3 Basophils % 0.7 Nucleated RBC % 0 Sodium 136 Potassium 4.2 Chloride 102 Carbon Dioxide 26 Anion Gap 7 L BUN 9.3 Creatinine 0.8 Est GFR (CKD-EPI)AfAm 90.30 Est GFR (CKD-EPI)NonAf 77.91 POC Glucometer Random Glucose 210 H Calcium 9.0 Total Bilirubin 0.3 AST 21 ALT 32 Alkaline Phosphatase 106 Total Protein 7.7 Albumin 3.5 Problem List - Problems (1) Suspected 2019 novel coronavirus infection Code(s): Z20.828 - CONTACT W AND EXPOSURE TO OTH VIRAL COMMUNICABLE DISEASES (2) Pneumonia Code(s): J18.9 - PNEUMONIA, UNSPECIFIED ORGANISM (3) Epigastric abdominal pain Code(s): R10.13 - EPIGASTRIC PAIN (4) HTN (hypertension) Code(s): I10 - ESSENTIAL (PRIMARY) HYPERTENSION (5) Diabetes Code(s): E11.9 - TYPE 2 DIABETES MELLITUS WITHOUT COMPLICATIONS Assessment/Plan IMP RUL,RML INFILTRATES COUGH COVID 19 NEGATIVE EPIGASTRIC PAIN HTN IDDM ELEVATED LACTATE CORRECTED PLAN O2 NEEDED ABX PER ID GI WORKUP ONGOING Dr Hernandez
--- NOTE | 2019-10-04 10:52 | PN ---
Progress Note, Physician History of Present Illness: stable no new issues - Current Medication List Current Medications: Active Medications Amitriptyline HCl (Elavil -) 10 mg PO DAILY [facility] Last Admin: 10/04/19 10:26 Dose: 10 mg Documented by: Gabapentin (Neurontin -) 600 mg PO TID [facility] Last Admin: 10/04/19 05:46 Dose: 600 mg Documented by: Insulin Aspart (Novolog Vial Sliding Scale -) 1 vial SQ [facility]; Protocol Last Admin: 10/04/19 06:00 Dose: 4 units Documented by: Metoclopramide HCl (Reglan -) 5 mg PO [facility] Last Admin: 10/04/19 10:26 Dose: 5 mg Documented by: Ondansetron HCl (Zofran Injection) 4 mg IVPUSH Q6H PRN PRN Reason: NAUSEA AND/OR VOMITING Last Admin: 09/29/19 09:08 Dose: 4 mg Documented by: Pantoprazole Sodium (Protonix -) 40 mg PO DAILY [facility] Last Admin: 10/04/19 10:26 Dose: 40 mg Documented by: Paroxetine HCl (Paxil -) 40 mg PO DAILY [facility] Last Admin: 10/04/19 10:26 Dose: 40 mg Documented by: Polyethylene Glycol (Miralax (For Daily Use) -) 17 gm PO DAILY [facility] Last Admin: 10/04/19 10:23 Dose: Not Given Documented by: Simethicone (Mylicon -) 80 mg PO QID [facility] Last Admin: 10/04/19 10:26 Dose: 80 mg Documented by: - Objective Vital Signs: Vital Signs Temperature 98 F 10/04/19 09:00 Pulse Rate 80 10/04/19 09:00 Respiratory Rate 18 10/04/19 09:00 Blood Pressure 125/87 10/04/19 09:00 O2 Sat by Pulse Oximetry (%) 95 10/04/19 07:55 Constitutional: Yes: No Distress, Calm Cardiovascular: Yes: S1, S2 Respiratory: Yes: Regular, CTA Bilaterally Gastrointestinal: Yes: Normal Bowel Sounds, Soft Musculoskeletal: Yes: WNL Extremities: Yes: WNL Neurological: Yes: Alert, Oriented Psychiatric: Yes: Alert, Oriented Labs: CBC, BMP 10/04/19 06:20 10/04/19 06:20 INR, PTT INR 1.06 (0.83-1.09) 09/26/19 15:40 Assessment/Plan Problem List - Problems (1) Abdominal pain Code(s): R10.9 - UNSPECIFIED ABDOMINAL PAIN (2) Diabetes Code(s): E11.9 - TYPE 2 DIABETES MELLITUS WITHOUT COMPLICATIONS (3) HTN (hypertension) Code(s): I10 - ESSENTIAL (PRIMARY) HYPERTENSION (4) Pneumonia Code(s): J18.9 - PNEUMONIA, UNSPECIFIED ORGANISM (5) Sepsis Code(s): A41.9 - SEPSIS, UNSPECIFIED ORGANISM (6) UTI (urinary tract infection) Code(s): N39.0 - URINARY TRACT INFECTION, SITE NOT SPECIFIED Assessment/Plan UTI PNA Abd pain/vomiting Leukocytosis DM plan continue current mgmt stable off of abx rest as per the team
[2019-10-04 15:05] VITALS: BP 123/79; PULSE 98; TEMP 97.8
--- NOTE | 2019-10-15 23:00 | DS ---
Physical Examination Vital Signs: Vital Signs Temperature 97.8 F 10/04/19 15:04 Pulse Rate 98 H 10/04/19 15:04 Respiratory Rate 18 10/04/19 15:04 Blood Pressure 123/79 10/04/19 15:04 O2 Sat by Pulse Oximetry (%) 95 10/04/19 07:55 Labs: CBC, BMP 10/04/19 06:20 10/04/19 06:20 Discharge Summary Problems reviewed: Yes Reason For Visit: URINARY TRACT INFECTION, SEPSIS Current Active Problems Pyelonephritis (Acute) Vomiting (Acute) Gastritis Diabetes HTN Abdominal pain Pneumonia Sepsis Hospital Course: Pt is a 64 y/o female w/ PMH significant for HTN, diabetes, OA, and FMG. Pt presented to the ER due to N/V/abdominal pain. Pt had ct scan chest wc showed RML/RUL infiltrate but COVID testing was negative. Pt was also found initially to have sepsis w/ elevated lactic acid wc than resolved after IV hydration. Pt also found to have UTI and urine culture was positive for E.coli but blood cultures remained negative. Pt seen by GI also for abdominal pain wc was felt to be due to gastritis. Condition: Good - Instructions Diet, Activity, Other Instructions: Diabetic diet See Dr Juni Moss in 1 week Referrals: Juni Moss MD [Primary Care Provider] - Disposition: HOME - Home Medications Comprehensive Discharge Medication List: Ambulatory Orders Acyclovir [Zovirax -] 400 mg PO BID 02/08/15 Gabapentin 600 mg PO TID 02/08/15 Upadacitinib [Rinvoq ER] 15 mg PO DAILY 09/27/19 Pantoprazole Sodium [Protonix -] 40 mg PO DAILY #30 tablet.ec 10/04/19 Simethicone [Mylicon -] 80 mg PO QID #120 tab.chew 10/04/19 Atorvastatin Calcium [Lipitor] 20 mg PO HS 10/12/19 Cyclobenzaprine HCl [Flexeril -] 10 mg PO DAILY 10/12/19 Dulaglutide [Trulicity] 1.5 mg SQ WEEKLY 10/12/19 Duloxetine HCl [Cymbalta -] 30 mg PO DAILY 10/12/19 Insulin Glargine,Hum.rec.anlog [[place] Solostar] 50 unit SQ BID 10/12/19 Naproxen [EC-Naprosyn] 500 mg PO DAILY 10/12/19 Upadacitinib [Rinvoq ER] 15 mg PO DAILY 10/12/19
== END 2019-10-04 16:39 | disposition home or self-care (01) | DRG 871 ==
LOC: JER 14:40 → JERBED 19:33 → J7W 23:44
PROVIDERS: ADMIT Internal Medicine; ATTEND Internal Medicine
DX: A41.9 Sepsis, unspecified organism (principal); J18.9 Pneumonia, unspecified organism; N39.0 Urinary tract infection, site not specified; E87.1 Hypo-osmolality and hyponatremia; E87.2 Acidosis; D72.829 Elevated white blood cell count, unspecified; E11.9 Type 2 diabetes mellitus without complications; E87.6 Hypokalemia; R00.0 Tachycardia, unspecified; I10 Essential (primary) hypertension; R50.9 Fever, unspecified; R10.13 Epigastric pain; K44.9 Diaphragmatic hernia without obstruction or gangrene; K76.0 Fatty (change of) liver, not elsewhere classified; B96.20 Unspecified Escherichia coli [E. coli] as the cause of diseases classified elsewhere; K29.60 Other gastritis without bleeding; E86.0 Dehydration; K21.9 Gastro-esophageal reflux disease without esophagitis
CPT/HCPCS: 36415; 71045-TC-FY; 71260-TC; 74177-TC; 76700-TC; 80053; 81003; 82150; 82248; 82550; 82728; 82803; 82962; 83605; 83615; 83690; 84484; 85025; 85610; 85730; 86140; 87040; 87086; 87186; 93005; 93010; 99291; J0131; J1644; Q9967; U0003

== ENCOUNTER 2019-10-12 13:03 | Inpatient (IN) | payer OTHER ==
--- NOTE | 2019-10-12 13:33 | PDOC ---
History of Present Illness - General Chief Complaint: Blood Sugar Problem Stated Complaint: SUGAR PROBLEMS Time Seen by Provider: 10/12/19 13:33 History Source: Patient Exam Limitations: No Limitations - History of Present Illness Initial Comments: 10/12/19 13:55 64F w/hx HTN, DM presenting w 1wk malaise, 3d dysuria, mild epgiastric pain and n/v. Sent from PCP's office today after diagnosed w UTI. Diagnosed in past w E.coli UTI w resistance. Didnt take any meds for pain. Denies fever, cough, chest pain, SOB, bowel mvmt changes. Recently admitted 09/25- for UTI w resistance. Past History - Medical History Allergies/Adverse Reactions: Allergies Allergy/AdvReac Type Severity Reaction Status Date / Time No Known Drug Allergies Allergy Verified 10/12/19 13:24 Home Medications: Ambulatory Orders Acyclovir [Zovirax -] 400 mg PO BID 02/08/15 Gabapentin 600 mg PO TID 02/08/15 Upadacitinib [Rinvoq ER] 15 mg PO DAILY 09/27/19 Pantoprazole Sodium [Protonix -] 40 mg PO DAILY #30 tablet.ec 10/04/19 Simethicone [Mylicon -] 80 mg PO QID #120 tab.chew 10/04/19 Atorvastatin Calcium [Lipitor] 20 mg PO HS 10/12/19 Cyclobenzaprine HCl [Flexeril -] 10 mg PO DAILY 10/12/19 Dulaglutide [Trulicity] 1.5 mg SQ WEEKLY 10/12/19 Duloxetine HCl [Cymbalta -] 30 mg PO DAILY 10/12/19 Insulin Glargine,Hum.rec.anlog [Joy Vegaostar] 50 unit SQ BID 10/12/19 Naproxen [EC-Naprosyn] 500 mg PO DAILY 10/12/19 Upadacitinib [Rinvoq ER] 15 mg PO DAILY 10/12/19 Anemia: No Asthma: No Cancer: No Cardiac Disorders: No CVA: Yes (NO RESIDULA) COPD: No CHF: No Dementia: No Diabetes: Yes GI Disorders: Yes (REFLUX, CONSTIPATION) Disorders: Yes (INCONTINENCE, S/P BLADDER LIFT) HTN: No Hypercholesterolemia: Yes Liver Disease: No Seizures: No Thyroid Disease: No - Surgical History Abdominal Surgery: No Appendectomy: Yes Cardiac Surgery: No Cholecystectomy: Yes Lung Surgery: No Neurologic Surgery: No Orthopedic Surgery: No - Psycho-Social/Smoking History Smoking History: Unknown if ever smoked Have you smoked in the past 12 months: No Review of Systems - Review of Systems Constitutional: No: Chills, Fever HEENTM: No: Eye Pain, Nose Pain Respiratory: No: Cough, Shortness of Breath Cardiac (ROS): No: Chest Pain, Lightheadedness ABD/GI: Yes: Nausea, Vomiting. No: Constipated, Diarrhea : No: Burning, Dysuria Musculoskeletal: No: Back Pain, Joint Pain Integumentary: No: Bruising, Dryness Neurological: No: Headache, Seizure Psychiatric: No: Anxiety, Depression Endocrine: No: Intolerance to Cold, Intolerance to Heat Hematologic/Lymphatic: No: Anemia, Blood Clots *Physical Exam - Vital Signs Last Vital Signs Temp Pulse Resp BP Pulse Ox 98.3 F 107 H 16 111/70 97 10/12/19 13:18 10/12/19 13:18 10/12/19 13:18 10/12/19 13:18 10/12/19 13:18 - Physical Exam General Appearance: Yes: Nourished, Appropriately Dressed, Mild Distress HEENT: positive: EOMI, RYDER, Normal Voice, Hearing Grossly Normal. negative: Scleral Icterus (R), Scleral Icterus (L) Respiratory/Chest: positive: Lungs Clear, Normal Breath Sounds. negative: Chest Tender, Respiratory Distress Cardiovascular: positive: Regular Rhythm, S1, S2, Tachycardia. negative: Edema, Murmur Gastrointestinal/Abdominal: positive: Normal Bowel Sounds, Tender (mild epigastric), Flat, Soft. negative: Organomegaly Extremity: positive: Delayed Capillary Refill Integumentary: positive: Normal Color, Dry, Warm Neurologic: positive: Fully Oriented, Alert, Normal Mood/Affect, Normal Response ED Treatment Course - LABORATORY CBC & Chemistry Diagram: 10/12/19 14:15 10/12/19 14:15 Medical Decision Making - Medical Decision Making 10/12/19 13:54 EKG - NSR, HR 96, QTc 449, no ST changes --- 64F w/hx HTN, DM presenting w 1wk malaise, 3d dysuria, mild epgiastric pain and n/v d/t UTI. Glucose wnl. Given pepcid, maalox, zosyn, zofran, 1L NS Admit m/s for pyelonephritis requiring IV AB Discharge - Discharge Information Problems reviewed: Yes Clinical Impression/Diagnosis: Pyelonephritis Condition: Improved - Follow up/Referral Referrals: Juni Moss MD [Primary Care Provider] - - Patient Discharge Instructions - Post Discharge Activity
[2019-10-12 14:03] LABS: EPI CELLS 2 /uL (0-25.1); HYALINE CASTS 1 /uL (0-3.1); PH,URINE >= 9.0 (5.0-8.0); URINE APPEARANCE CLEAR; URINE BACTERIA 2865 /uL (0-1359); URINE BILIRUBIN NEGATIVE (NEGATIVE); URINE COLOR YELLOW; URINE GLUCOSE (UA) NEGATIVE (NEGATIVE); URINE KETONE NEGATIVE (NEGATIVE); URINE LEUK ESTERASE 1+ (NEGATIVE); URINE NITRITE NEGATIVE (NEGATIVE); URINE PROTEIN NEGATIVE (NEGATIVE); URINE RBC 6 /uL (0-23.9); URINE WBC 140 /uL (0-25.8)
[2019-10-12] MEDS ORDERED: MAG HYDROX/AL HYDROX/SIMETH 30 ML UNIT-DOSE CUP PO ONE (14:05)
[2019-10-12] MEDS ORDERED: SODIUM CHLORIDE 0.9% 500 ML INFUS.BAG IV ONE (14:05)
[2019-10-12] MEDS ORDERED: FAMOTIDINE 20 MG/50 ML IVPB 20 MG/50 ML MG IVPB ONE (14:05)
[2019-10-12] MEDS ORDERED: MAG HYDROX/AL HYDROX/SIMETH 30 ML UNIT-DOSE CUP ONE (14:13)
[2019-10-12 14:48] LABS: BASO % 0.6 % (0-2.0); EOS % 1.1 % (0-4.5); HEMATOCRIT 38.9 % (32.4-45.2); HEMOGLOBIN 12.7 GM/dL (10.7-15.3); LYMPH % 22.9 % (8-40); MCH 29.8 pg (25.7-33.7); MCHC 32.7 g/dl (32.0-36.0); MEAN PLT VOLUME 8.6 fl (7.5-11.1); MONO % 7.6 % (3.8-10.2); NEUT % 67.8 % (42.8-82.8); PLATELET COUNT 338 K/MM3 (134-434); RBC 4.28 M/mm3 (3.60-5.2); RDW 14.7 % (11.6-15.6); WHITE BLOOD COUNT 8.9 K/mm3 (4.0-10.0)
[2019-10-12] MEDS ORDERED: ONDANSETRON 4 MG/2 ML VIAL IVPUSH ONE (15:04)
[2019-10-12] MEDS ORDERED: PIPERACILLIN/TAZOB 4.5 GM 4.5 GM in DEXTROSE 5%-WATER 100 ML IVPB ONE (15:04)
[2019-10-12 15:26] LABS: ALBUMIN 3.9 g/dl (3.4-5.0); BILIRUBIN,TOTAL 0.4 mg/dL (0.2-1); BLOOD UREA NITROGEN 10.7 mg/dL (7-18); CALCIUM 9.4 mg/dL (8.5-10.1); CREATININE 0.8 mg/dL (0.55-1.3); POTASSIUM 4.4 mmol/L (3.5-5.1); TOT PROT 7.8 g/dl (6.4-8.2)
[2019-10-12] MEDS ORDERED: PIPERACILLIN/TAZOB 4.5 GM 4.5 GM/100 ML BAG IVPB ONE (15:29)
--- NOTE | 2019-10-12 18:47 | PDOC ---
Documentation entered by Corin Horton SCRIBE, acting as scribe for Esther Hammonds MD. Esther Hammonds MD: This documentation has been prepared by the Supriya perez Nirvannie, SCRIBE, under my direction and personally reviewed by me in its entirety. I confirm that the documentation accurately reflects all work, treatment, procedures, and medical decision making performed by me. Attending Attestation - Resident Resident Name: Tyler Bagley - ED Attending Attestation I have performed the following: I have examined & evaluated the patient, The case was reviewed & discussed with the resident, I agree w/resident's findings & plan, Exceptions are as noted - HPI HPI: 10/12/19 14:58 64 year old female with a significant past medical history of HTN, DM, and UTI who presents to the ED with 3 days of dysuria, epigastric discomfort with associated nausea and vomiting. states she threw up several times last night , also c/;o urgency, and suprapubic abd pain. for 2 - 3 days. does also have right flank pain. no cp no cough no myalgia or sick contacts. saw pcp dr Moss who sent her here for admission for uti, due to intractable vomiting, and h/o prior uti. per chart review pt was treated for uti recently 2 weeks ago. Allergies: NKDA Primary Care Physician: Dr. Gemma Moss 10/12/19 18:47 - Physicial Exam PE: 10/12/19 18:50 awake alert oriented x 3. lungs clear bilat heart rrr no mrg abd soft mild suprapubic ttp . no rebound no guarding, awake alert oriented x 3. skin warm and dry. - Medical Decision Making 10/12/19 18:52 64 yo F h/o DM prior uti here with n/v/ urinary sxs, right flank pain and suprapubic pain. differential uti, pyelo , dka, hypokalemia, dehydration or renal failure. plan ua urine cultures labs iv hydration antiemetics. abx. pt with positive uti, will given abx admit. pt with resistance in past, given zosyn. admitted. to medicine. pyeloneprhitis. Discharge - Discharge Information Problems reviewed: Yes Clinical Impression/Diagnosis: Pyelonephritis, Vomiting Condition: Improved - Follow up/Referral - Patient Discharge Instructions - Post Discharge Activity
[2019-10-12] MEDS: INSULIN SLIDING SCALE (NOVOLOG) 1 VIAL SQ SCH (22:24)
[2019-10-12] MEDS: SIMETHICONE 80 MG TAB.CHEW (FP) PO PRN (22:25)
[2019-10-12] MEDS: GABAPENTIN 300 MG CAPSULE PO SCH (22:25)
[2019-10-12] MEDS: HEPARIN NA (PORCINE) 5,000 UNITS/ML 1ML VIAL SQ SCH (22:25)
[2019-10-12] MEDS: ATORVASTATIN CA 20 MG TABLET (FP) PO SCH (22:25)
[2019-10-12] MEDS: ONDANSETRON 4 MG/2 ML VIAL IVPUSH PRN (22:25)
--- NOTE | 2019-10-12 22:45 | HP ---
Admitting History and Physical - Admission History of Present Illness: Pt is a 64 y/o female with PMH significant for HTN, DM,, HLD, peripheral neuropathy, gastritis and UTI. Pt presented to the ER with 3 days of dysuria, epigastric discomfort with associated nausea and vomiting. Pt states she threw up several times last night , also c/;o urgency, and suprapubic abd pain. for 2 - 3 days. does also have right flank pain. no cp no cough no myalgia or sick contacts. saw pcp dr Moss who sent her here for admission for uti, due to intractable vomiting, and h/o prior uti. per chart review pt was treated for uti recently 2 weeks ago. - Past Medical History Cardiovascular: Yes: HTN ...: No Endocrine: Yes: Diabetes Mellitus - Smoking History Smoking history: Never smoked Have you smoked in the past 12 months: No - Alcohol/Substance Use Hx Alcohol Use: No Home Medications - Allergies Allergies/Adverse Reactions: Allergies Allergy/AdvReac Type Severity Reaction Status Date / Time No Known Drug Allergies Allergy Verified 10/12/19 13:24 - Home Medications Home Medications: Ambulatory Orders Acyclovir [Zovirax -] 400 mg PO BID 02/08/15 Gabapentin 600 mg PO TID 02/08/15 Upadacitinib [Rinvoq ER] 15 mg PO DAILY 09/27/19 Pantoprazole Sodium [Protonix -] 40 mg PO DAILY #30 tablet.ec 10/04/19 Simethicone [Mylicon -] 80 mg PO QID #120 tab.chew 10/04/19 Atorvastatin Calcium [Lipitor] 20 mg PO HS 10/12/19 Cyclobenzaprine HCl [Flexeril -] 10 mg PO DAILY 10/12/19 Dulaglutide [Trulicity] 1.5 mg SQ WEEKLY 10/12/19 Duloxetine HCl [Cymbalta -] 30 mg PO DAILY 10/12/19 Insulin Glargine,Hum.rec.anlog [[place] Solostar] 50 unit SQ BID 10/12/19 Naproxen [EC-Naprosyn] 500 mg PO DAILY 10/12/19 Upadacitinib [Rinvoq ER] 15 mg PO DAILY 10/12/19 Physical Examination Vital Signs: Vital Signs Temperature 97.6 F 10/12/19 20:12 Pulse Rate 81 10/12/19 20:12 Respiratory Rate 20 10/12/19 20:12 Blood Pressure 112/78 10/12/19 20:12 O2 Sat by Pulse Oximetry (%) 98 10/12/19 20:35 Labs: CBC, BMP 10/12/19 14:15 10/12/19 14:15 Problem List - Problems (1) UTI (urinary tract infection) Assessment/Plan: IV antibiotics Urine culture ID consult Code(s): N39.0 - URINARY TRACT INFECTION, SITE NOT SPECIFIED (2) Vomiting Assessment/Plan: ?Due to gastritis IV zofran GI consult Code(s): R11.10 - VOMITING, UNSPECIFIED (3) Abdominal pain Assessment/Plan: Check ct scan abd/pelvis Code(s): R10.9 - UNSPECIFIED ABDOMINAL PAIN (4) Diabetes Code(s): E11.9 - TYPE 2 DIABETES MELLITUS WITHOUT COMPLICATIONS (5) HTN (hypertension) Code(s): I10 - ESSENTIAL (PRIMARY) HYPERTENSION
[2019-10-13] MEDS: INSULIN SLIDING SCALE (NOVOLOG) 1 VIAL SQ SCH ×4 (06:16→21:55)
[2019-10-13] MEDS: GABAPENTIN 300 MG CAPSULE PO SCH ×3 (06:16→21:55)
[2019-10-13] MEDS ORDERED: INSULIN (NOVOLOG) ASPART 100 UNITS/ML 10ML VIAL ONE ×2 (06:52→21:09)
[2019-10-13 08:02] LABS: BASO % 0.4 % (0-2.0); EOS % 2.6 % (0-4.5); HEMATOCRIT 35.7 % (32.4-45.2); HEMOGLOBIN 11.8 GM/dL (10.7-15.3); LYMPH % 19.2 % (8-40); MCH 30.1 pg (25.7-33.7); MEAN CELL VOLUME 91.3 fl (80-96); MEAN PLT VOLUME 8.9 fl (7.5-11.1); NEUT % 69.8 % (42.8-82.8); PLATELET COUNT 286 K/MM3 (134-434); RBC 3.91 M/mm3 (3.60-5.2); RDW 14.2 % (11.6-15.6); WHITE BLOOD COUNT 6.9 K/mm3 (4.0-10.0)
[2019-10-13 08:17] LABS: ALBUMIN 3.2 g/dl (3.4-5.0); BILIRUBIN,TOTAL 0.3 mg/dL (0.2-1); BLOOD UREA NITROGEN 7.8 mg/dL (7-18); CALCIUM 8.7 mg/dL (8.5-10.1); CREATININE 0.7 mg/dL (0.55-1.3); POTASSIUM 4.1 mmol/L (3.5-5.1)
[2019-10-13 08:18] LABS: TOT PROT 6.5 g/dl (6.4-8.2)
[2019-10-13] MEDS ORDERED: DEXTROSE 5%-WATER - 50 ML IVPB ONE ×2 (09:53→17:06)
[2019-10-13] MEDS ORDERED: PIPERACILLIN/TAZOBACTAM 3.375 GM VIAL IVPB ONE ×2 (09:53→17:06)
[2019-10-13] MEDS ORDERED: PT OWN MED DRAWER 7, Y5N ONE (09:53)
[2019-10-13] MEDS: HEPARIN NA (PORCINE) 5,000 UNITS/ML 1ML VIAL SQ SCH ×2 (09:56→21:56)
[2019-10-13] MEDS: PANTOPRAZOLE 40 MG TABLET PO SCH (09:56)
[2019-10-13] MEDS: DULoxetine HCL 30 MG CAPSULE.DR PO SCH (09:56)
[2019-10-13] MEDS ORDERED: PIPERACILLIN/TAZOB 3.375 GM 3.375 GM in DEXTROSE 5%-WATER - 50 ML IVPB SCH (10:00)
[2019-10-13 14:41] VITALS: BMI 26.4
[2019-10-13] MEDS: ACETAMINOPHEN 325 MG TABLET (FP) PO PRN (15:39)
--- NOTE | 2019-10-13 16:15 | CONSULT ---
Consult Consult Specialty:: UROLOGY Reason for Consultation:: Pyelonephritis - History of Present Illness Chief Complaint: 64 y/o female with PMH significant for HTN, DM,, HLD, perip heral neuropathy, gastritis and UTI. Pt presented to the ER with 3 days of dysuria, epigastric discomfort with associated nausea and vomiting, Nocturia 3, Frequency 8, urgency, Rt flank pain and suprapubic pain. Patien admitted for IV abx. Tender Rt CVA. WBC 6.9. HB 11.8. BUN 7.8. S.Creat 0.8. CT-SCan of abd and pelvis- pending - Past Medical History Cardio/Vascular: Yes: HTN ...: No Endocrine: Yes: Diabetes Mellitus - Alcohol/Substance Use Hx Alcohol Use: No - Smoking History Smoking history: Never smoked Have you smoked in the past 12 months: No Home Medications - Allergies Allergies/Adverse Reactions: Allergies Allergy/AdvReac Type Severity Reaction Status Date / Time No Known Drug Allergies Allergy Verified 10/12/19 13:24 - Home Medications Home Medications: Ambulatory Orders Acyclovir [Zovirax -] 400 mg PO BID 02/08/15 Gabapentin 600 mg PO TID 02/08/15 Upadacitinib [Rinvoq ER] 15 mg PO DAILY 09/27/19 Pantoprazole Sodium [Protonix -] 40 mg PO DAILY #30 tablet.ec 10/04/19 Simethicone [Mylicon -] 80 mg PO QID #120 tab.chew 10/04/19 Atorvastatin Calcium [Lipitor] 20 mg PO HS 10/12/19 Cyclobenzaprine HCl [Flexeril -] 10 mg PO DAILY 10/12/19 Dulaglutide [Trulicity] 1.5 mg SQ WEEKLY 10/12/19 Duloxetine HCl [Cymbalta -] 30 mg PO DAILY 10/12/19 Insulin Glargine,Hum.rec.anlog [Toukyler Pearson Solostar] 50 unit SQ BID 10/12/19 Naproxen [EC-Naprosyn] 500 mg PO DAILY 10/12/19 Upadacitinib [Rinvoq ER] 15 mg PO DAILY 10/12/19 Physical Exam Vital Signs: Vital Signs Temperature 98.0 F 10/13/19 14:00 Pulse Rate 82 10/13/19 14:00 Respiratory Rate 20 10/13/19 14:00 Blood Pressure 107/62 10/13/19 14:00 O2 Sat by Pulse Oximetry (%) 98 10/12/19 20:35 Labs: CBC, BMP 10/13/19 06:38 10/13/19 06:38 Assessment/Plan Recurrent UTI'S Pyelonephritis Plan: Continue IV abx- Zosyn ID consult CT-Scan report? will schedule her for Cystoscopy.
--- NOTE | 2019-10-13 16:46 | CON.ID ---
Consult - History of Present Illness History of Present Illness: 64 y.o. female with PMH of HTN, HLD, DM, incontinence s/p bladder lift, s/p cholecystectomy presents with c/o urinary urgency/dysuria, epigastric pain with multiple episodes of vomiting/nausea for the past 3 days. Pt was hospitalized from 09/21/19 - 10/04/19 after treatment for E.coli UTI/Sepsis with resolution of symptoms after completing a course of Zosyn. 3 days ago pt reports burning with urination and development of RT flank pain/n/v episodes. Has no hematuria. Denies fever/chills and has no other complaints. Sent by PMD for further evaluation/treatment. In the ER pt without leukocytosis or fever but UA and C+S with bacterial growth. CT A/P results pending. Pt currently alert, without distress, but reports persistence of symptoms. Has been restarted on broad spectrum antibiotics. - History Source History Provided By: Patient, Medical Record Limitations to Obtaining History: No Limitations - Past Medical History Cardio/Vascular: Yes: HTN, Hyperlipdemia Renal/: Yes: Other (urinary incontinence s/p bladder lift) ...: No Endocrine: Yes: Diabetes Mellitus - Alcohol/Substance Use Hx Alcohol Use: No - Smoking History Smoking history: Never smoked Have you smoked in the past 12 months: No - Social History History of Recent Travel: No Home Medications - Allergies Allergies/Adverse Reactions: Allergies Allergy/AdvReac Type Severity Reaction Status Date / Time No Known Drug Allergies Allergy Verified 10/12/19 13:24 - Home Medications Home Medications: Ambulatory Orders Acyclovir [Zovirax -] 400 mg PO BID 02/08/15 Gabapentin 600 mg PO TID 02/08/15 Upadacitinib [Rinvoq ER] 15 mg PO DAILY 09/27/19 Pantoprazole Sodium [Protonix -] 40 mg PO DAILY #30 tablet.ec 10/04/19 Simethicone [Mylicon -] 80 mg PO QID #120 tab.chew 10/04/19 Atorvastatin Calcium [Lipitor] 20 mg PO HS 10/12/19 Cyclobenzaprine HCl [Flexeril -] 10 mg PO DAILY 10/12/19 Dulaglutide [Trulicity] 1.5 mg SQ WEEKLY 10/12/19 Duloxetine HCl [Cymbalta -] 30 mg PO DAILY 10/12/19 Insulin Glargine,Hum.rec.anlog [Joy Ritter] 50 unit SQ BID 10/12/19 Naproxen [EC-Naprosyn] 500 mg PO DAILY 10/12/19 Upadacitinib [Rinvoq ER] 15 mg PO DAILY 10/12/19 Review of Systems - Review of Systems Constitutional: reports: Malaise Eyes: reports: No Symptoms HENT: reports: No Symptoms Neck: reports: No Symptoms Cardiovascular: reports: No Symptoms Respiratory: reports: No Symptoms Genitourinary: reports: Burning, Pain (suprapubic/ Rt flank pain), Urgency Musculoskeletal: reports: No Symptoms Integumentary: reports: No Symptoms Neurological: reports: No Symptoms Endocrine: reports: No Symptoms Hematology/Lymphatic: reports: No Symptoms Psychiatric: reports: No Symptoms Physical Exam Vital Signs: Vital Signs Temperature 98.0 F 10/13/19 14:00 Pulse Rate 82 10/13/19 14:00 Respiratory Rate 10/13/19 14:00 Blood Pressure 107/62 10/13/19 14:00 O2 Sat by Pulse Oximetry (%) 98 10/12/19 20:35 Constitutional: Yes: No Distress, Calm Eyes: Yes: Conjunctiva Clear, EOM Intact HENT: Yes: Atraumatic Neck: Yes: Supple Cardiovascular: Yes: Regular Rate and Rhythm Respiratory: Yes: CTA Bilaterally Gastrointestinal: Yes: Normal Bowel Sounds, Soft Renal/: Yes: CVA Tenderness - Right Extremities: Yes: WNL Edema: No Integumentary: Yes: WNL Neurological: Yes: Alert, Oriented Psychiatric: Yes: Alert Labs: CBC, BMP 10/13/19 06:38 10/13/19 06:38 Microbiology 10/12/19 13:00 Urine - Urine Clean Catch Urine Culture - Preliminary Lactose Fermenting Neg Bacilli Laboratory Tests 10/12/19 10/12/19 10/12/19 13:00 13:35 14:15 WBC 8.9 RBC 4.28 Hgb 12.7 Hct 38.9 MCV 91.0 MCH 29.8 MCHC 32.7 RDW 14.7 Plt Count 338 MPV 8.6 Absolute Neuts (auto) 6.0 Neutrophils % 67.8 Lymphocytes % 22.9 Monocytes % 7.6 Eosinophils % 1.1 Basophils % 0.6 Nucleated RBC % 0 Sodium Potassium Chloride Carbon Dioxide Anion Gap BUN Creatinine Est GFR (CKD-EPI)AfAm Est GFR (CKD-EPI)NonAf POC Glucometer 114 Random Glucose Hemoglobin A1c % Calcium Total Bilirubin AST ALT Alkaline Phosphatase Total Protein Albumin Total Amylase Lipase Urine Color Yellow Urine Appearance Clear Urine pH >= 9.0 H D Ur Specific [place] 1.009 L Urine Protein Negative Urine Glucose (UA) Negative Urine Ketones Negative Urine Blood Negative Urine Nitrite Negative Urine Bilirubin Negative Urine Urobilinogen 1.0 Ur Leukocyte Esterase 1+ H Urine WBC (Auto) 140 Urine RBC (Auto) 6 Urine Casts (Auto) 1 U Epithel Cells (Auto) 2 Urine Bacteria (Auto) 2865 10/12/19 10/12/19 10/13/19 14:15 22:24 06:15 WBC RBC Hgb Hct MCV MCH MCHC RDW Plt Count MPV Absolute Neuts (auto) Neutrophils % Lymphocytes % Monocytes % Eosinophils % Basophils % Nucleated RBC % Sodium 136 Potassium 4.4 Chloride 100 Carbon Dioxide 29 Anion Gap 6 L BUN 10.7 Creatinine 0.8 Est GFR (CKD-EPI)AfAm 90.30 Est GFR (CKD-EPI)NonAf 77.91 POC Glucometer 85 73 Random Glucose 99 Hemoglobin A1c % Calcium 9.4 Total Bilirubin 0.4 AST 14 L ALT 21 Alkaline Phosphatase 108 Total Protein 7.8 Albumin 3.9 Total Amylase Lipase 91 Urine Color Urine Appearance Urine pH Ur Specific Monroe Urine Protein Urine Glucose (UA) Urine Ketones Urine Blood Urine Nitrite Urine Bilirubin Urine Urobilinogen Ur Leukocyte Esterase Urine WBC (Auto) Urine RBC (Auto) Urine Casts (Auto) U Epithel Cells (Auto) Urine Bacteria (Auto) 10/13/19 10/13/19 10/13/19 06:38 06:38 06:38 WBC 6.9 RBC 3.91 Hgb 11.8 Hct 35.7 MCV 91.3 MCH 30.1 MCHC 33.0 RDW 14.2 Plt Count 286 MPV 8.9 Absolute Neuts (auto) 4.8 Neutrophils % 69.8 Lymphocytes % 19.2 Monocytes % 8.0 Eosinophils % 2.6 D Basophils % 0.4 Nucleated RBC % 0 Sodium 141 Potassium 4.1 Chloride 108 H Carbon Dioxide 24 Anion Gap 9 BUN 7.8 Creatinine 0.7 Est GFR (CKD-EPI)AfAm 106.12 Est GFR (CKD-EPI)NonAf 91.56 POC Glucometer Random Glucose 80 Hemoglobin A1c % 8.8 H Calcium 8.7 Total Bilirubin 0.3 AST 15 ALT 18 Alkaline Phosphatase 100 Total Protein 6.5 Albumin 3.2 L Total Amylase 27 Lipase 67 L Urine Color Urine Appearance Urine pH Ur Specific Monroe Urine Protein Urine Glucose (UA) Urine Ketones Urine Blood Urine Nitrite Urine Bilirubin Urine Urobilinogen Ur Leukocyte Esterase Urine WBC (Auto) Urine RBC (Auto) Urine Casts (Auto) U Epithel Cells (Auto) Urine Bacteria (Auto) 10/13/19 12:14 WBC RBC Hgb Hct MCV MCH MCHC RDW Plt Count MPV Absolute Neuts (auto) Neutrophils % Lymphocytes % Monocytes % Eosinophils % Basophils % Nucleated RBC % Sodium Potassium Chloride Carbon Dioxide Anion Gap BUN Creatinine Est GFR (CKD-EPI)AfAm Est GFR (CKD-EPI)NonAf POC Glucometer 92 Random Glucose Hemoglobin A1c % Calcium Total Bilirubin AST ALT Alkaline Phosphatase Total Protein Albumin Total Amylase Lipase Urine Color Urine Appearance Urine pH Ur Specific Monroe Urine Protein Urine Glucose (UA) Urine Ketones Urine Blood Urine Nitrite Urine Bilirubin Urine Urobilinogen Ur Leukocyte Esterase Urine WBC (Auto) Urine RBC (Auto) Urine Casts (Auto) U Epithel Cells (Auto) Urine Bacteria (Auto) Imaging - Results Chest X-ray: Report Reviewed Cat Scan: Pending Problem List - Problems (1) Pyelonephritis Code(s): N12 - TUBULO-INTERSTITIAL NEPHRITIS, NOT SPCF ACUTE OR CHRONIC (2) Diabetes Code(s): E11.9 - TYPE 2 DIABETES MELLITUS WITHOUT COMPLICATIONS (3) HTN (hypertension) Code(s): I10 - ESSENTIAL (PRIMARY) HYPERTENSION (4) UTI (urinary tract infection) Code(s): N39.0 - URINARY TRACT INFECTION, SITE NOT SPECIFIED Assessment/Plan UTI/Pyelonephritis DM HTN HLD Recent E. coli UTI/Sepsis -- continue antibiotics, follow up urine culture isolate -- follow up pending results of CTA/P -- pt without fever/leukocytosis, vitals stable - continue monitor -- follow up COVID screening results will follow Thank you
[2019-10-13] MEDS: PIPERACILLIN/TAZOB 3.375 GM 3.375 GM in DEXTROSE 5%-WATER - 50 ML IVPB SCH (17:11)
--- NOTE | 2019-10-13 21:16 | PN ---
Progress Note, Physician History of Present Illness: Pt still complains of pelvicpel - Current Medication List Current Medications: Active Medications Acetaminophen (Tylenol -) 650 mg PO Q4H PRN PRN Reason: PAIN LEVEL 1 - 7/FEVER Last Admin: 10/13/19 15:39 Dose: 650 mg Documented by: Atorvastatin Calcium (Lipitor -) 20 mg PO HS [facility] Last Admin: 10/12/19 22:25 Dose: 20 mg Documented by: Duloxetine HCl (Cymbalta -) 30 mg PO DAILY [facility] Last Admin: 10/13/19 09:56 Dose: 30 mg Documented by: Gabapentin (Neurontin -) 600 mg PO TID [facility] Last Admin: 10/13/19 14:44 Dose: 600 mg Documented by: Heparin Sodium (Porcine) (Heparin -) 5,000 unit SQ BID [facility] Last Admin: 10/13/19 09:56 Dose: 5,000 unit Documented by: Piperacillin Sod/Tazobactam (Sod 3.375 gm/ Dextrose) 50 mls @ 100 mls/hr IVPB Q8H-IV [facility]; Protocol Last Admin: 10/13/19 17:11 Dose: 100 mls/hr Documented by: Insulin Aspart (Novolog Vial Sliding Scale -) 1 vial SQ ACHS [facility]; Protocol Last Admin: 10/13/19 17:30 Dose: Not Given Documented by: Ondansetron HCl (Zofran Injection) 4 mg IVPUSH Q6H PRN PRN Reason: NAUSEA Last Admin: 10/12/19 22:25 Dose: 4 mg Documented by: Pantoprazole Sodium (Protonix -) 40 mg PO DAILY [facility] Last Admin: 10/13/19 09:56 Dose: 40 mg Documented by: Simethicone (Mylicon -) 80 mg PO Q6H PRN PRN Reason: GAS Last Admin: 10/12/19 22:25 Dose: 80 mg Documented by: - Objective Vital Signs: Vital Signs Temperature 98.3 F 10/13/19 20:30 Pulse Rate 78 10/13/19 20:30 Respiratory Rate 20 10/13/19 20:30 Blood Pressure 108/72 10/13/19 20:30 O2 Sat by Pulse Oximetry (%) 96 10/13/19 20:38 Cardiovascular: Yes: WNL, Regular Rate and Rhythm Respiratory: Yes: WNL, Regular, CTA Bilaterally Gastrointestinal: Yes: WNL, Normal Bowel Sounds, Soft Labs: CBC, BMP 10/13/19 06:38 10/13/19 06:38 Problem List - Problems (1) UTI (urinary tract infection) Assessment/Plan: IV antibiotics Urine culture As per uro pt to have cystoscopy Code(s): N39.0 - URINARY TRACT INFECTION, SITE NOT SPECIFIED (2) Abdominal pain Assessment/Plan: Ct scan abd/pelvis did not show any acute pathology Code(s): R10.9 - UNSPECIFIED ABDOMINAL PAIN (3) Vomiting Assessment/Plan: ?Due to gastritis IV zofran Code(s): R11.10 - VOMITING, UNSPECIFIED (4) Diabetes Assessment/Plan: Cont sliding scale w/ coverage Code(s): E11.9 - TYPE 2 DIABETES MELLITUS WITHOUT COMPLICATIONS (5) HTN (hypertension) Code(s): I10 - ESSENTIAL (PRIMARY) HYPERTENSION
[2019-10-13] MEDS ORDERED: MORPHINE SULFATE 2 MG/ML VIAL IVPUSH ONE (21:17)
[2019-10-13] MEDS: ATORVASTATIN CA 20 MG TABLET (FP) PO SCH (21:56)
[2019-10-13] MEDS: ONDANSETRON 4 MG/2 ML VIAL IVPUSH PRN (21:58)
[2019-10-14] MEDS ORDERED: DEXTROSE 5%-WATER - 50 ML IVPB ONE ×2 (01:23→08:56)
[2019-10-14] MEDS ORDERED: PIPERACILLIN/TAZOBACTAM 3.375 GM VIAL IVPB ONE (01:23)
[2019-10-14] MEDS: PIPERACILLIN/TAZOB 3.375 GM 3.375 GM in DEXTROSE 5%-WATER - 50 ML IVPB SCH (01:35)
[2019-10-14] MEDS: GABAPENTIN 300 MG CAPSULE PO SCH ×3 (05:57→21:54)
[2019-10-14] MEDS: INSULIN SLIDING SCALE (NOVOLOG) 1 VIAL SQ SCH ×4 (05:59→21:54)
[2019-10-14] MEDS ORDERED: INSULIN (NOVOLOG) ASPART 100 UNITS/ML 10ML VIAL ONE ×4 (06:13→21:53)
[2019-10-14] MEDS ORDERED: PT OWN MED DRAWER 7, Y5N ONE (06:13)
[2019-10-14] MEDS ORDERED: cefTRIAXone SODIUM 1 GM VIAL ONE (08:56)
[2019-10-14] MEDS: PANTOPRAZOLE 40 MG TABLET PO SCH (09:13)
[2019-10-14] MEDS: HEPARIN NA (PORCINE) 5,000 UNITS/ML 1ML VIAL SQ SCH ×2 (09:13→21:55)
[2019-10-14] MEDS: DULoxetine HCL 30 MG CAPSULE.DR PO SCH (09:13)
[2019-10-14] MEDS ORDERED: CEFTRIAXONE 1 GM in DEXTROSE 5%-WATER - 50 ML IVPB SCH (10:00)
[2019-10-14] MEDS ORDERED: IMIPENEM/CILASTATIN SODIUM 500 MG in SODIUM CHLORIDE 100 ML IVPB ONE (11:08)
--- NOTE | 2019-10-14 12:32 | PN ---
Progress Note (short form) - Note Progress Note: UROLOGY NOTE CT-Scan no kidney stone or hydro. periurethral calcification possible urethral diverticula. SNS setting changed to program A v-3.3 Plan: NPO Wednesday midnight for cystoscopy in Wednesday
[2019-10-14] MEDS: ACETAMINOPHEN 325 MG TABLET (FP) PO PRN (13:28)
[2019-10-14] MEDS: ONDANSETRON 4 MG/2 ML VIAL IVPUSH PRN (18:27)
--- NOTE | 2019-10-14 18:38 | PN ---
Progress Note, Physician History of Present Illness: Pt is alert, afebrile, still with c/o pain/dysuria. Vitals stable. CT results noted. Urology evaluated. - Current Medication List Current Medications: Active Medications Acetaminophen (Tylenol -) 650 mg PO Q4H PRN PRN Reason: PAIN LEVEL 1 - 7/FEVER Last Admin: 10/14/19 13:28 Dose: 650 mg Documented by: Atorvastatin Calcium (Lipitor -) 20 mg PO HS [facility] Last Admin: 10/13/19 21:56 Dose: 20 mg Documented by: Duloxetine HCl (Cymbalta -) 30 mg PO DAILY [facility] Last Admin: 10/14/19 09:13 Dose: 30 mg Documented by: Gabapentin (Neurontin -) 600 mg PO TID [facility] Last Admin: 10/14/19 13:28 Dose: 600 mg Documented by: Heparin Sodium (Porcine) (Heparin -) 5,000 unit SQ BID [facility] Last Admin: 10/14/19 09:13 Dose: 5,000 unit Documented by: Insulin Aspart (Novolog Vial Sliding Scale -) 1 vial SQ [facility]; Protocol Last Admin: 10/14/19 16:17 Dose: 4 units Documented by: Ondansetron HCl (Zofran Injection) 4 mg IVPUSH Q6H PRN PRN Reason: NAUSEA Last Admin: 10/14/19 18:27 Dose: 4 mg Documented by: Pantoprazole Sodium (Protonix -) 40 mg PO DAILY [facility] Last Admin: 10/14/19 09:13 Dose: 40 mg Documented by: Simethicone (Mylicon -) 80 mg PO Q6H PRN PRN Reason: GAS Last Admin: 10/12/19 22:25 Dose: 80 mg Documented by: - Objective Vital Signs: Vital Signs Temperature 97.7 F 10/14/19 09:55 Pulse Rate 94 H 10/14/19 09:55 Respiratory Rate 20 10/14/19 09:55 Blood Pressure 115/74 10/14/19 09:55 O2 Sat by Pulse Oximetry (%) 96 10/14/19 09:00 Constitutional: Yes: No Distress, Calm Cardiovascular: Yes: Regular Rate and Rhythm Respiratory: Yes: Regular Gastrointestinal: Yes: Normal Bowel Sounds, Soft Genitourinary: Yes: Other (suprapubic discomfort) Neurological: Yes: Alert Labs: CBC, BMP 10/13/19 06:38 10/13/19 06:38 Laboratory Results - last 24 hr 10/12/19 10/13/19 10/14/19 18:01 21:55 05:57 POC Glucometer 112 82 COVID-19 (GEORGE) Not detected 10/14/19 10/14/19 11:15 16:05 POC Glucometer 163 210 COVID-19 (GEORGE) Microbiology 10/12/19 13:00 Urine - Urine Clean Catch Urine Culture - Final Escherichia Coli - ....Imaging Cat Scan: Report Reviewed Problem List - Problems (1) Pyelonephritis Code(s): N12 - TUBULO-INTERSTITIAL NEPHRITIS, NOT SPCF ACUTE OR CHRONIC (2) Diabetes Code(s): E11.9 - TYPE 2 DIABETES MELLITUS WITHOUT COMPLICATIONS (3) HTN (hypertension) Code(s): I10 - ESSENTIAL (PRIMARY) HYPERTENSION (4) UTI (urinary tract infection) Code(s): N39.0 - URINARY TRACT INFECTION, SITE NOT SPECIFIED Assessment/Plan Recurrent E.coli UTI r/o Urethral diverticula DM HTN HLD Recent E. coli UTI/Sepsis -- continue Zosyn -- awaiting cystoscopy -- pt without fever/leukocytosis, vitals stable
--- NOTE | 2019-10-14 18:48 | PN ---
Physical Exam: SUBJECTIVE: Patient seen and examined at bedside, endorses lower pelvic/suprapubic pain, c/o dysuria/frequency/urgency. VSS. OBJECTIVE: Vital Signs Period Temp Pulse Resp BP Sys/Person Pulse Ox Last 24 Hr 97.7 F-98.3 F 78-94 20-20 105-115/64-74 96-96 GENERAL: The patient is awake, alert, and fully oriented, in no acute distress. HEENT NC/AT, EOMI, dry MM Chest CTAB, no crackles or wheezing HEART: Regular rate and rhythm, S1, S2 without murmur, rub or gallop. Abd lower pelvic/abdominal pain, BS+, no guarding ND, EXTREMITIES: 2+ pulses, warm, well-perfused, no edema. NEUROLOGICAL: Cranial nerves II through XII grossly intact. Normal speech, gait not observed. PSYCH: Normal mood, normal affect. SKIN: Warm, dry, normal turgor, no rashes or lesions noted Laboratory Results - last 24 hr 10/12/19 10/13/19 10/14/19 18:01 21:55 05:57 POC Glucometer 112 82 COVID-19 (GEORGE) Not detected 10/14/19 10/14/19 11:15 16:05 POC Glucometer 163 210 COVID-19 (GEORGE) Active Medications Generic Name Dose Route Start Last Admin Trade Name Freq PRN Reason Stop Dose Admin Acetaminophen 650 mg 10/13/19 15:05 10/14/19 13:28 Tylenol - PO 650 mg Q4H PRN Administration PAIN LEVEL 1 - 7/FEVER Atorvastatin Calcium 20 mg 10/12/19 22:00 10/13/19 21:56 Lipitor - PO 20 mg HS ROSEMARIE Administration Duloxetine HCl 30 mg 10/13/19 10:00 10/14/19 09:13 Cymbalta - PO 30 mg DAILY ROSEMARIE Administration Gabapentin 600 mg 10/12/19 22:00 10/14/19 13:28 Neurontin - PO 600 mg TID ROSEMARIE Administration Heparin Sodium (Porcine) 5,000 unit 10/12/19 22:00 10/14/19 09:13 Heparin - SQ 5,000 unit BID ROSEMARIE Administration Insulin Aspart 1 vial 10/12/19 22:00 10/14/19 16:17 Novolog Vial Sliding Scale - SQ 4 units ACHS ROSEMARIE Administration Protocol Ondansetron HCl 4 mg 10/12/19 21:54 10/14/19 18:27 Zofran Injection IVPUSH 4 mg Q6H PRN Administration NAUSEA Pantoprazole Sodium 40 mg 10/13/19 10:00 10/14/19 09:13 Protonix - PO 40 mg DAILY ROSEMARIE Administration Simethicone 80 mg 10/12/19 22:00 10/12/19 22:25 Mylicon - PO 80 mg Q6H PRN Administration GAS ASSESSMENT/PLAN: 64 F UTI HTN 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 Zosyn for UTI Will need diagnostic cysto for Wednesday bladder stimulator adjusted by urology ISS, BGM <180 Reglan PRn for nausea DVT ppx: Heparin SC Visit type - Emergency Visit Emergency Visit: Yes ED Registration Date: 10/12/19 Care time: The patient presented to the Emergency Department on the above date and was hospitalized for further evaluation of their emergent condition. - New Patient This patient is new to me today: No - Critical Care Critical Care patient: No - Discharge Referral Referred to [facility] Med P.[facility].: No
[2019-10-14] MEDS: ATORVASTATIN CA 20 MG TABLET (FP) PO SCH (21:54)
[2019-10-15] MEDS ORDERED: INSULIN (NOVOLOG) ASPART 100 UNITS/ML 10ML VIAL ONE (06:33)
[2019-10-15] MEDS: GABAPENTIN 300 MG CAPSULE PO SCH ×3 (06:49→22:04)
[2019-10-15] MEDS: INSULIN SLIDING SCALE (NOVOLOG) 1 VIAL SQ SCH ×4 (06:53→22:06)
[2019-10-15 08:57] LABS: BASO % 0.6 % (0-2.0); EOS % 1.8 % (0-4.5); HEMATOCRIT 41.5 % (32.4-45.2); HEMOGLOBIN 14.1 GM/dL (10.7-15.3); LYMPH % 20.4 % (8-40); MCHC 33.9 g/dl (32.0-36.0); MEAN CELL VOLUME 91.5 fl (80-96); MEAN PLT VOLUME 8.7 fl (7.5-11.1); MONO % 7.7 % (3.8-10.2); NEUT % 69.5 % (42.8-82.8); PLATELET COUNT 369 K/MM3 (134-434); RBC 4.54 M/mm3 (3.60-5.2); RDW 14.7 % (11.6-15.6); WHITE BLOOD COUNT 7.7 K/mm3 (4.0-10.0)
[2019-10-15] MEDS ORDERED: PT OWN MED DRAWER 7, Y5N ONE (09:17)
[2019-10-15 09:20] LABS: ALBUMIN 3.8 g/dl (3.4-5.0); BILIRUBIN,TOTAL 0.4 mg/dL (0.2-1); BLOOD UREA NITROGEN 11.1 mg/dL (7-18); CALCIUM 9.8 mg/dL (8.5-10.1); CREATININE 0.9 mg/dL (0.55-1.3); POTASSIUM 4.3 mmol/L (3.5-5.1); TOT PROT 7.7 g/dl (6.4-8.2)
[2019-10-15] MEDS: PANTOPRAZOLE 40 MG TABLET PO SCH (09:20)
[2019-10-15] MEDS: HEPARIN NA (PORCINE) 5,000 UNITS/ML 1ML VIAL SQ SCH ×2 (09:20→22:07)
[2019-10-15] MEDS: DULoxetine HCL 30 MG CAPSULE.DR PO SCH (09:20)
[2019-10-15] MEDS: SIMETHICONE 80 MG TAB.CHEW (FP) PO PRN ×2 (09:23→22:04)
[2019-10-15] MEDS: ONDANSETRON 4 MG/2 ML VIAL IVPUSH PRN ×2 (09:23→17:35)
[2019-10-15] MEDS ORDERED: PIPERACILLIN/TAZOB 3.375 GM 3.375 GM in DEXTROSE 5%-WATER - 50 ML IVPB SCH (10:00)
[2019-10-15] MEDS ORDERED: DEXTROSE 5%-WATER - 50 ML IVPB ONE ×2 (10:03→17:21)
[2019-10-15] MEDS ORDERED: PIPERACILLIN/TAZOBACTAM 3.375 GM VIAL IVPB ONE ×2 (10:03→17:21)
--- NOTE | 2019-10-15 14:20 | EKG ---
Test Reason : Blood Pressure : / mmHG Vent. Rate : 096 BPM Atrial Rate : 096 BPM P-R Int : 130 ms QRS Dur : 086 ms QT Int : 356 ms P-R-T Axes : 049 032 032 degrees QTc Int : 449 ms NORMAL SINUS RHYTHM NORMAL ECG WHEN COMPARED WITH ECG OF 26-SEP-2019 15:00, NO SIGNIFICANT CHANGE WAS FOUND Confirmed by ENRIQUETA ECHAVARRIA MD ([id number]) on 10/15/2019 2:20:24 PM Referred By: Confirmed By:ENRIQUETA ECHAVARRIA MD
[2019-10-15] MEDS: PIPERACILLIN/TAZOB 3.375 GM 3.375 GM in DEXTROSE 5%-WATER - 50 ML IVPB SCH (17:35)
[2019-10-15] MEDS ORDERED: METOCLOPRAMIDE HCL 10 MG TABLET (FP) PO PRN (18:46)
--- NOTE | 2019-10-15 18:48 | PN ---
Progress Note, Physician History of Present Illness: Pt states lower abd pain/dysuria less but c/o epigastric pain with 2 episodes of vomiting today and current nausea. - Current Medication List Current Medications: Active Medications Acetaminophen (Tylenol -) 650 mg PO Q4H PRN PRN Reason: PAIN LEVEL 1 - 7/FEVER Last Admin: 10/14/19 13:28 Dose: 650 mg Documented by: Atorvastatin Calcium (Lipitor -) 20 mg PO HS [facility] Last Admin: 10/14/19 21:54 Dose: 20 mg Documented by: Duloxetine HCl (Cymbalta -) 30 mg PO DAILY [facility] Last Admin: 10/15/19 09:20 Dose: 30 mg Documented by: Gabapentin (Neurontin -) 600 mg PO TID [facility] Last Admin: 10/15/19 13:16 Dose: 600 mg Documented by: Heparin Sodium (Porcine) (Heparin -) 5,000 unit SQ BID [facility] Last Admin: 10/15/19 09:20 Dose: 5,000 unit Documented by: Piperacillin Sod/Tazobactam (Sod 3.375 gm/ Dextrose) 50 mls @ 100 mls/hr IVPB Q8H-IV [facility]; Protocol Last Admin: 10/15/19 17:35 Dose: 100 mls/hr Documented by: Insulin Aspart (Novolog Vial Sliding Scale -) 1 vial SQ ACHS [facility]; Protocol Last Admin: 10/15/19 17:40 Dose: 4 units Documented by: Ondansetron HCl (Zofran Injection) 4 mg IVPUSH Q6H PRN PRN Reason: NAUSEA Last Admin: 10/15/19 17:35 Dose: 4 mg Documented by: Pantoprazole Sodium (Protonix -) 40 mg PO DAILY [facility] Last Admin: 10/15/19 09:20 Dose: 40 mg Documented by: Simethicone (Mylicon -) 80 mg PO Q6H PRN PRN Reason: GAS Last Admin: 10/15/19 09:23 Dose: 80 mg Documented by: - Objective Vital Signs: Vital Signs Temperature 98.0 F 10/15/19 09:00 Pulse Rate 102 H 10/15/19 09:00 Respiratory Rate 20 10/15/19 09:00 Blood Pressure 111/66 10/15/19 09:00 O2 Sat by Pulse Oximetry (%) 97 10/15/19 09:00 Constitutional: Yes: No Distress Cardiovascular: Yes: Regular Rate and Rhythm Respiratory: Yes: CTA Bilaterally Gastrointestinal: Yes: Normal Bowel Sounds, Soft, Tenderness (epigastric with deep palpation, less suprapubic discomfort) Neurological: Yes: Alert Labs: CBC, BMP 10/15/19 07:50 10/15/19 07:50 Laboratory Last Values WBC 7.7 K/mm3 (4.0-10.0) 10/15/19 07:50 RBC 4.54 M/mm3 (3.60-5.2) 10/15/19 07:50 Hgb 14.1 GM/dL (10.7-15.3) 10/15/19 07:50 Hct 41.5 % (32.4-45.2) D 10/15/19 07:50 MCV 91.5 fl (80-96) 10/15/19 07:50 MCH 31.0 pg (25.7-33.7) 10/15/19 07:50 MCHC 33.9 g/dl (32.0-36.0) 10/15/19 07:50 RDW 14.7 % (11.6-15.6) 10/15/19 07:50 Plt Count 369 K/MM3 (134-434) D 10/15/19 07:50 MPV 8.7 fl (7.5-11.1) 10/15/19 07:50 Absolute Neuts (auto) 5.3 K/mm3 (1.5-8.0) 10/15/19 07:50 Neutrophils % 69.5 % (42.8-82.8) 10/15/19 07:50 Lymphocytes % 20.4 % (8-40) 10/15/19 07:50 Monocytes % 7.7 % (3.8-10.2) 10/15/19 07:50 Eosinophils % 1.8 % (0-4.5) 10/15/19 07:50 Basophils % 0.6 % (0-2.0) 10/15/19 07:50 Nucleated RBC % 0 % (0-0) 10/15/19 07:50 Sodium 140 mmol/L (136-145) 10/15/19 07:50 Potassium 4.3 mmol/L (3.5-5.1) 10/15/19 07:50 Chloride 102 mmol/L (98-107) 10/15/19 07:50 Carbon Dioxide 27 mmol/L (21-32) 10/15/19 07:50 Anion Gap 10 MMOL/L (8-16) 10/15/19 07:50 BUN 11.1 mg/dL (7-18) 10/15/19 07:50 Creatinine 0.9 mg/dL (0.55-1.3) 10/15/19 07:50 Est GFR (CKD-EPI)AfAm 78.32 10/15/19 07:50 Est GFR (CKD-EPI)NonAf 67.57 10/15/19 07:50 POC Glucometer 245 UNITS (80-120) 10/15/19 17:16 Random Glucose 143 mg/dL (74-106) H 10/15/19 07:50 Hemoglobin A1c % 8.8 % (4.2-6.3) H 10/13/19 06:38 Calcium 9.8 mg/dL (8.5-10.1) 10/15/19 07:50 Total Bilirubin 0.4 mg/dL (0.2-1) 10/15/19 07:50 AST 16 U/L (15-37) 10/15/19 07:50 ALT 22 U/L (13-61) 10/15/19 07:50 Alkaline Phosphatase 102 U/L (45-117) 10/15/19 07:50 Total Protein 7.7 g/dl (6.4-8.2) 10/15/19 07:50 Albumin 3.8 g/dl (3.4-5.0) 10/15/19 07:50 Total Amylase 27 U/L (25-115) 10/13/19 06:38 Lipase 67 U/L (73-393) L 10/13/19 06:38 Urine Color Yellow 10/12/19 13:00 Urine Appearance Clear 10/12/19 13:00 Urine pH >= 9.0 (5.0-8.0) H D 10/12/19 13:00 Ur Specific [facility] 1.009 (1.010-1.035) L 10/12/19 13:00 Urine Protein Negative (NEGATIVE) 10/12/19 13:00 Urine Glucose (UA) Negative (NEGATIVE) 10/12/19 13:00 Urine Ketones Negative (NEGATIVE) 10/12/19 13:00 Urine Blood Negative (NEGATIVE) 10/12/19 13:00 Urine Nitrite Negative (NEGATIVE) 10/12/19 13:00 Urine Bilirubin Negative (NEGATIVE) 10/12/19 13:00 Urine Urobilinogen 1.0 mg/dL (0.2-1.0) 10/12/19 13:00 Ur Leukocyte Esterase 1+ (NEGATIVE) H 10/12/19 13:00 Urine WBC (Auto) 140 /uL (0-25.8) 10/12/19 13:00 Urine RBC (Auto) 6 /uL (0-23.9) 10/12/19 13:00 Urine Casts (Auto) 1 /uL (0-3.1) 10/12/19 13:00 U Epithel Cells (Auto) 2 /uL (0-25.1) 10/12/19 13:00 Urine Bacteria (Auto) 2865 /uL (0-1359) 10/12/19 13:00 COVID-19 (GEORGE) Not detected (Not Detected) 10/12/19 18:01 Microbiology 10/12/19 13:00 Urine - Urine Clean Catch Urine Culture - Final Escherichia Coli Problem List - Problems (1) Pyelonephritis Code(s): N12 - TUBULO-INTERSTITIAL NEPHRITIS, NOT SPCF ACUTE OR CHRONIC (2) Diabetes Code(s): E11.9 - TYPE 2 DIABETES MELLITUS WITHOUT COMPLICATIONS (3) HTN (hypertension) Code(s): I10 - ESSENTIAL (PRIMARY) HYPERTENSION (4) UTI (urinary tract infection) Code(s): N39.0 - URINARY TRACT INFECTION, SITE NOT SPECIFIED Assessment/Plan Recurrent E.coli UTI r/o Urethral diverticula DM HTN HLD Recent E. coli UTI/Sepsis -- continue Zosyn -- cystoscopy tomorrow -- pt without fever/leukocytosis, vitals stable -- c/o epigastric pain/n/v -- consider imaging
--- NOTE | 2019-10-15 18:50 | PN ---
Physical Exam: SUBJECTIVE: Patient seen and examined at bedside, feels better but still nauseous, dyspepsia will supplement PPI w/ Reglan. VSS. OBJECTIVE: GENERAL: The patient is awake, alert, and fully oriented, in no acute distress. HEENT NC/AT, EOMI, dry MM Chest CTAB, no crackles or wheezing HEART: Regular rate and rhythm, S1, S2 without murmur, rub or gallop. Abd lower pelvic/abdominal pain, BS+, no guarding ND, epigastric tenderness to palpation EXTREMITIES: 2+ pulses, warm, well-perfused, no edema. NEUROLOGICAL: Cranial nerves II through XII grossly intact. Normal speech, gait not observed. PSYCH: Normal mood, normal affect. SKIN: Warm, dry, normal turgor, no rashes or lesions noted Vital Signs Period Temp Pulse Resp BP Sys/Person Pulse Ox Last 24 Hr 98.0 F-98.4 F 86-102 20-20 110-117/62-66 97-97 Laboratory Results - last 24 hr 10/14/19 10/15/19 10/15/19 21:51 06:51 07:50 WBC 7.7 RBC 4.54 Hgb 14.1 Hct 41.5 D MCV 91.5 MCH 31.0 MCHC 33.9 RDW 14.7 Plt Count 369 D MPV 8.7 Absolute Neuts (auto) 5.3 Neutrophils % 69.5 Lymphocytes % 20.4 Monocytes % 7.7 Eosinophils % 1.8 Basophils % 0.6 Nucleated RBC % 0 Sodium Potassium Chloride Carbon Dioxide Anion Gap BUN Creatinine Est GFR (CKD-EPI)AfAm Est GFR (CKD-EPI)NonAf POC Glucometer 178 146 Random Glucose Calcium Total Bilirubin AST ALT Alkaline Phosphatase Total Protein Albumin 10/15/19 10/15/19 10/15/19 07:50 11:00 17:16 WBC RBC Hgb Hct MCV MCH MCHC RDW Plt Count MPV Absolute Neuts (auto) Neutrophils % Lymphocytes % Monocytes % Eosinophils % Basophils % Nucleated RBC % Sodium 140 Potassium 4.3 Chloride 102 Carbon Dioxide 27 Anion Gap 10 BUN 11.1 Creatinine 0.9 Est GFR (CKD-EPI)AfAm 78.32 Est GFR (CKD-EPI)NonAf 67.57 POC Glucometer 179 245 Random Glucose 143 H Calcium 9.8 Total Bilirubin 0.4 AST 16 ALT 22 Alkaline Phosphatase 102 Total Protein 7.7 Albumin 3.8 Active Medications Generic Name Dose Route Start Last Admin Trade Name Freq PRN Reason Stop Dose Admin Acetaminophen 650 mg 10/13/19 15:05 10/14/19 13:28 Tylenol - PO 650 mg Q4H PRN Administration PAIN LEVEL 1 - 7/FEVER Atorvastatin Calcium 20 mg 10/12/19 22:00 10/14/19 21:54 Lipitor - PO 20 mg HS [facility] Administration Duloxetine HCl 30 mg 10/13/19 10:00 10/15/19 09:20 Cymbalta - PO 30 mg DAILY [facility]IE Administration Gabapentin 600 mg 10/12/19 22:00 10/15/19 13:16 Neurontin - PO 600 mg TID [facility] Administration Heparin Sodium (Porcine) 5,000 unit 10/12/19 22:00 10/15/19 09:20 Heparin - SQ 5,000 unit BID [facility] Administration Piperacillin Sod/Tazobactam 50 mls @ 100 mls/hr 10/15/19 18:00 10/15/19 17:35 Sod 3.375 gm/ Dextrose IVPB 100 mls/hr Q8H-IV [facility] Administration Protocol Insulin Aspart 1 vial 10/12/19 22:00 10/15/19 17:40 Novolog Vial Sliding Scale - SQ 4 units ACHS RO[facility]IE Administration Protocol Metoclopramide HCl 10 mg 10/15/19 18:46 Reglan - PO Q8H PRN NAUSEA Ondansetron HCl 4 mg 10/12/19 21:54 10/15/19 17:35 Zofran Injection IVPUSH 4 mg Q6H PRN Administration NAUSEA Pantoprazole Sodium 40 mg 10/13/19 10:00 10/15/19 09:20 Protonix - PO 40 mg DAILY [facility] Administration Simethicone 80 mg 10/12/19 22:00 10/15/19 09:23 Mylicon - PO 80 mg Q6H PRN Administration GAS ASSESSMENT/PLAN: 64 F UTI HTN 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 Zosyn for UTI Will need diagnostic cysto for Wednesday AM, NPO MN bladder stimulator adjusted by urology ISS, BGM <180 Reglan PRn for nausea, PPI, H/H stable no concern for ulcer/bleed DVT ppx: Heparin SC Visit type - Emergency Visit Emergency Visit: Yes ED Registration Date: 10/12/19 Care time: The patient presented to the Emergency Department on the above date and was hospitalized for further evaluation of their emergent condition. - New Patient This patient is new to me today: No - Critical Care Critical Care patient: No - Discharge Referral Referred to [facility] No
[2019-10-15] MEDS: ATORVASTATIN CA 20 MG TABLET (FP) PO SCH (22:05)
[2019-10-16] MEDS ORDERED: PIPERACILLIN/TAZOBACTAM 3.375 GM VIAL IVPB ONE ×3 (01:35→18:10)
[2019-10-16] MEDS ORDERED: DEXTROSE 5%-WATER - 50 ML IVPB ONE ×3 (01:35→18:10)
[2019-10-16] MEDS: PIPERACILLIN/TAZOB 3.375 GM 3.375 GM in DEXTROSE 5%-WATER - 50 ML IVPB SCH ×3 (02:29→18:12)
[2019-10-16] MEDS: INSULIN SLIDING SCALE (NOVOLOG) 1 VIAL SQ SCH ×4 (06:43→22:04)
[2019-10-16] MEDS: GABAPENTIN 300 MG CAPSULE PO SCH ×3 (06:43→22:03)
[2019-10-16 09:20] LABS: BASO % 0.5 % (0-2.0); EOS % 1.3 % (0-4.5); HEMATOCRIT 44.1 % (32.4-45.2); HEMOGLOBIN 14.3 GM/dL (10.7-15.3); LYMPH % 16.3 % (8-40); MCH 29.8 pg (25.7-33.7); MCHC 32.5 g/dl (32.0-36.0); MEAN CELL VOLUME 91.6 fl (80-96); NEUT % 73.9 % (42.8-82.8); PLATELET COUNT 331 K/MM3 (134-434); RBC 4.81 M/mm3 (3.60-5.2); RDW 14.4 % (11.6-15.6); WHITE BLOOD COUNT 11.1 K/mm3 (4.0-10.0)
[2019-10-16] MEDS ORDERED: PT OWN MED DRAWER 7, Y5N ONE ×2 (09:36→13:22)
[2019-10-16 10:04] LABS: POTASSIUM 4.3 mmol/L (3.5-5.1)
[2019-10-16 10:27] LABS: ALBUMIN 3.8 g/dl (3.4-5.0); BILIRUBIN,TOTAL 0.4 mg/dL (0.2-1); BLOOD UREA NITROGEN 12.5 mg/dL (7-18); CALCIUM 9.7 mg/dL (8.5-10.1); CREATININE 0.9 mg/dL (0.55-1.3); TOT PROT 7.8 g/dl (6.4-8.2)
--- NOTE | 2019-10-16 10:35 | PN ---
Progress Note, Physician History of Present Illness: stable no new issues plan for cystoscopy today - Current Medication List Current Medications: Active Medications Acetaminophen (Tylenol -) 650 mg PO Q4H PRN PRN Reason: PAIN LEVEL 1 - 7/FEVER Last Admin: 10/14/19 13:28 Dose: 650 mg Documented by: Atorvastatin Calcium (Lipitor -) 20 mg PO HS [facility] Last Admin: 10/15/19 22:05 Dose: 20 mg Documented by: Duloxetine HCl (Cymbalta -) 30 mg PO DAILY [facility] Last Admin: 10/15/19 09:20 Dose: 30 mg Documented by: Gabapentin (Neurontin -) 600 mg PO TID [facility] Last Admin: 10/16/19 06:43 Dose: Not Given Documented by: Heparin Sodium (Porcine) (Heparin -) 5,000 unit SQ BID [facility] Last Admin: 10/15/19 22:07 Dose: 5,000 unit Documented by: Piperacillin Sod/Tazobactam (Sod 3.375 gm/ Dextrose) 50 mls @ 100 mls/hr IVPB Q8H-IV [facility]; Protocol Last Admin: 10/16/19 09:39 Dose: 100 mls/hr Documented by: Insulin Aspart (Novolog Vial Sliding Scale -) 1 vial SQ ACHS [facility]; Protocol Last Admin: 10/16/19 06:43 Dose: 2 units Documented by: Metoclopramide HCl (Reglan -) 10 mg PO Q8H PRN PRN Reason: NAUSEA Last Admin: 10/15/19 22:05 Dose: 10 mg Documented by: Ondansetron HCl (Zofran Injection) 4 mg IVPUSH Q6H PRN PRN Reason: NAUSEA Last Admin: 10/15/19 17:35 Dose: 4 mg Documented by: Pantoprazole Sodium (Protonix -) 40 mg PO DAILY [facility] Last Admin: 10/15/19 09:20 Dose: 40 mg Documented by: Simethicone (Mylicon -) 80 mg PO Q6H PRN PRN Reason: GAS Last Admin: 10/15/19 22:04 Dose: 80 mg Documented by: - Objective Vital Signs: Vital Signs Temperature 98.4 F 10/16/19 06:00 Pulse Rate 104 H 10/16/19 06:00 Respiratory Rate 18 10/16/19 06:00 Blood Pressure 101/66 10/16/19 06:00 O2 Sat by Pulse Oximetry (%) 97 10/15/19 21:00 Constitutional: Yes: No Distress, Calm Cardiovascular: Yes: S1, S2 Respiratory: Yes: Regular, CTA Bilaterally Gastrointestinal: Yes: Normal Bowel Sounds, Soft Musculoskeletal: Yes: WNL Extremities: Yes: WNL Neurological: Yes: Alert, Oriented Psychiatric: Yes: Alert, Oriented Labs: CBC, BMP 10/16/19 07:50 10/16/19 07:50 - ....Imaging Cat Scan: Report Reviewed, Image Reviewed Assessment/Plan Problem List - Problems (1) Pyelonephritis Code(s): N12 - TUBULO-INTERSTITIAL NEPHRITIS, NOT SPCF ACUTE OR CHRONIC (2) Diabetes Code(s): E11.9 - TYPE 2 DIABETES MELLITUS WITHOUT COMPLICATIONS (3) HTN (hypertension) Code(s): I10 - ESSENTIAL (PRIMARY) HYPERTENSION (4) UTI (urinary tract infection) Code(s): N39.0 - URINARY TRACT INFECTION, SITE NOT SPECIFIED Assessment/Plan UTI/Pyelonephritis DM HTN HLD Recent E. coli UTI/Sepsis -- continue antibiotics, -- pt without fever/leukocytosis, vitals stable - continue monitor --plan for cystoscopy
[2019-10-16] MEDS: DULoxetine HCL 30 MG CAPSULE.DR PO SCH (13:25)
[2019-10-16] MEDS: PANTOPRAZOLE 40 MG TABLET PO SCH (13:26)
[2019-10-16] MEDS: HEPARIN NA (PORCINE) 5,000 UNITS/ML 1ML VIAL SQ SCH ×2 (13:26→22:03)
[2019-10-16] MEDS: ONDANSETRON 4 MG/2 ML VIAL IVPUSH PRN (14:08)
[2019-10-16] MEDS: SIMETHICONE 80 MG TAB.CHEW (FP) PO PRN (20:29)
[2019-10-16] MEDS: ATORVASTATIN CA 20 MG TABLET (FP) PO SCH (22:03)
--- NOTE | 2019-10-16 22:24 | PN ---
Progress Note, Physician History of Present Illness: Pt complains of vomiting after eating - Current Medication List Current Medications: Active Medications Acetaminophen (Tylenol -) 650 mg PO Q4H PRN PRN Reason: PAIN LEVEL 1 - 7/FEVER Last Admin: 10/14/19 13:28 Dose: 650 mg Documented by: Atorvastatin Calcium (Lipitor -) 20 mg PO HS [facility] Last Admin: 10/16/19 22:03 Dose: 20 mg Documented by: Duloxetine HCl (Cymbalta -) 30 mg PO DAILY [facility] Last Admin: 10/16/19 13:25 Dose: 30 mg Documented by: Gabapentin (Neurontin -) 600 mg PO TID [facility] Last Admin: 10/16/19 22:03 Dose: 600 mg Documented by: Heparin Sodium (Porcine) (Heparin -) 5,000 unit SQ BID [facility] Last Admin: 10/16/19 22:03 Dose: 5,000 unit Documented by: Piperacillin Sod/Tazobactam (Sod 3.375 gm/ Dextrose) 50 mls @ 100 mls/hr IVPB Q8H-IV [facility]; Protocol Last Admin: 10/16/19 18:12 Dose: 100 mls/hr Documented by: Insulin Aspart (Novolog Vial Sliding Scale -) 1 vial SQ ACHS [facility]; Protocol Last Admin: 10/16/19 22:04 Dose: 4 units Documented by: Metoclopramide HCl (Reglan -) 10 mg PO Q8H PRN PRN Reason: NAUSEA Last Admin: 10/15/19 22:05 Dose: 10 mg Documented by: Ondansetron HCl (Zofran Injection) 4 mg IVPUSH Q6H PRN PRN Reason: NAUSEA Last Admin: 10/16/19 14:08 Dose: 4 mg Documented by: Pantoprazole Sodium (Protonix -) 40 mg PO DAILY [facility] Last Admin: 10/16/19 13:26 Dose: 40 mg Documented by: Simethicone (Mylicon -) 80 mg PO Q6H PRN PRN Reason: GAS Last Admin: 10/16/19 20:29 Dose: 80 mg Documented by: - Objective Vital Signs: Vital Signs Temperature 98 F 10/16/19 17:57 Pulse Rate 106 H 10/16/19 17:57 Respiratory Rate 20 10/16/19 17:57 Blood Pressure 90/63 10/16/19 17:57 O2 Sat by Pulse Oximetry (%) 97 10/15/19 21:00 Cardiovascular: Yes: WNL, Regular Rate and Rhythm Respiratory: Yes: WNL, Regular, CTA Bilaterally Gastrointestinal: Yes: WNL, Normal Bowel Sounds, Soft Labs: CBC, BMP 10/16/19 07:50 10/16/19 07:50 Problem List - Problems (1) UTI (urinary tract infection) Assessment/Plan: IV zosyn Urine culture (+) for Ecoli Pt scheduled for cystoscopy Code(s): N39.0 - URINARY TRACT INFECTION, SITE NOT SPECIFIED (2) Abdominal pain Assessment/Plan: Ct scan abd/pelvis did not show any acute pathology Cont protonix reglan added GI consult Code(s): R10.9 - UNSPECIFIED ABDOMINAL PAIN (3) Vomiting Assessment/Plan: ?Due to gastritis IV zofran Reglan added GI consult Code(s): R11.10 - VOMITING, UNSPECIFIED (4) Diabetes Assessment/Plan: Cont sliding scale w/ coverage Code(s): E11.9 - TYPE 2 DIABETES MELLITUS WITHOUT COMPLICATIONS (5) HTN (hypertension) Code(s): I10 - ESSENTIAL (PRIMARY) HYPERTENSION
--- NOTE | 2019-10-17 00:24 | PN ---
DATE OF VISIT: DATE OF DICTATION: 10/16/2019 HOSPITAL COURSE: Patient is a 64-year-old female admitted with urinary tract infection. She was complaining of dysuria as well as suprapubic pain associated with nausea and vomiting. She also complains of nocturia, frequency, urgency, and right flank pain. Patient has history of diabetes, high blood pressure, and dyslipidemia. She also has gastritis as well as peripheral neuropathy. She denies any alcohol or tobacco use. She denies any allergies. She underwent a CAT scan of her abdomen and pelvis, and this came back with an noted in the right supragluteal area. There was calcification 0.8 x 0.4 cm located at the left paraurethral area with a small central urethral diverticulum. IMPRESSION: Impression at present is possible diverticulum with urethral stones. Will recommend a cystoscopy and a urethroscopy with possible stone basketing of urethral stone on Wednesday after patient is medically stable. Lidia [id number]
[2019-10-17] MEDS ORDERED: PIPERACILLIN/TAZOBACTAM 3.375 GM VIAL IVPB ONE ×3 (01:09→16:59)
[2019-10-17] MEDS ORDERED: DEXTROSE 5%-WATER - 50 ML IVPB ONE ×3 (01:09→16:59)
[2019-10-17] MEDS: PIPERACILLIN/TAZOB 3.375 GM 3.375 GM in DEXTROSE 5%-WATER - 50 ML IVPB SCH ×3 (02:15→17:16)
[2019-10-17] MEDS: GABAPENTIN 300 MG CAPSULE PO SCH ×3 (06:26→22:29)
[2019-10-17] MEDS: INSULIN SLIDING SCALE (NOVOLOG) 1 VIAL SQ SCH ×4 (06:26→22:29)
[2019-10-17] MEDS ORDERED: PT OWN MED DRAWER 7, Y5N ONE (09:03)
[2019-10-17] MEDS: HEPARIN NA (PORCINE) 5,000 UNITS/ML 1ML VIAL SQ SCH ×2 (09:13→22:21)
[2019-10-17] MEDS: DULoxetine HCL 30 MG CAPSULE.DR PO SCH (09:13)
[2019-10-17] MEDS: PANTOPRAZOLE 40 MG TABLET PO SCH (09:14)
--- NOTE | 2019-10-17 11:26 | PN ---
Progress Note, Physician History of Present Illness: stable no new issues - Current Medication List Current Medications: Active Medications Acetaminophen (Tylenol -) 650 mg PO Q4H PRN PRN Reason: PAIN LEVEL 1 - 7/FEVER Last Admin: 10/14/19 13:28 Dose: 650 mg Documented by: Atorvastatin Calcium (Lipitor -) 20 mg PO HS [facility] Last Admin: 10/16/19 22:03 Dose: 20 mg Documented by: Duloxetine HCl (Cymbalta -) 30 mg PO DAILY [facility] Last Admin: 10/17/19 09:13 Dose: 30 mg Documented by: Gabapentin (Neurontin -) 600 mg PO TID [facility] Last Admin: 10/17/19 06:26 Dose: 600 mg Documented by: Heparin Sodium (Porcine) (Heparin -) 5,000 unit SQ BID [facility] Last Admin: 10/17/19 09:13 Dose: 5,000 unit Documented by: Piperacillin Sod/Tazobactam (Sod 3.375 gm/ Dextrose) 50 mls @ 100 mls/hr IVPB Q8H-IV [facility]; Protocol Last Admin: 10/17/19 09:14 Dose: 100 mls/hr Documented by: Insulin Aspart (Novolog Vial Sliding Scale -) 1 vial SQ ACHS [facility]; Protocol Last Admin: 10/17/19 11:20 Dose: 4 units Documented by: Metoclopramide HCl (Reglan -) 10 mg PO Q8H PRN PRN Reason: NAUSEA Last Admin: 10/15/19 22:05 Dose: 10 mg Documented by: Ondansetron HCl (Zofran Injection) 4 mg IVPUSH Q6H PRN PRN Reason: NAUSEA Last Admin: 10/16/19 14:08 Dose: 4 mg Documented by: Pantoprazole Sodium (Protonix -) 40 mg PO DAILY [facility] Last Admin: 10/17/19 09:14 Dose: 40 mg Documented by: - Objective Vital Signs: Vital Signs Temperature 98.4 F 10/17/19 10:00 Pulse Rate 96 H 10/17/19 10:00 Respiratory Rate 18 10/17/19 10:00 Blood Pressure 97/61 10/17/19 10:00 O2 Sat by Pulse Oximetry (%) 96 10/17/19 09:00 Constitutional: Yes: No Distress, Calm Cardiovascular: Yes: S1, S2 Respiratory: Yes: Regular, CTA Bilaterally Gastrointestinal: Yes: Normal Bowel Sounds, Soft Musculoskeletal: Yes: WNL Extremities: Yes: WNL Neurological: Yes: Alert, Oriented Psychiatric: Yes: Alert, Oriented Labs: CBC, BMP 10/16/19 07:50 10/16/19 07:50 Assessment/Plan Problem List - Problems (1) Pyelonephritis Code(s): N12 - TUBULO-INTERSTITIAL NEPHRITIS, NOT SPCF ACUTE OR CHRONIC (2) Diabetes Code(s): E11.9 - TYPE 2 DIABETES MELLITUS WITHOUT COMPLICATIONS (3) HTN (hypertension) Code(s): I10 - ESSENTIAL (PRIMARY) HYPERTENSION (4) UTI (urinary tract infection) Code(s): N39.0 - URINARY TRACT INFECTION, SITE NOT SPECIFIED Assessment/Plan UTI/Pyelonephritis DM HTN HLD Recent E. coli UTI/Sepsis -- continue antibiotics, -- pt without fever/leukocytosis, vitals stable - continue monitor
--- NOTE | 2019-10-17 16:49 | PN ---
Progress Note, Physician History of Present Illness: stable - Current Medication List Current Medications: Active Medications Acetaminophen (Tylenol -) 650 mg PO Q4H PRN PRN Reason: PAIN LEVEL 1 - 7/FEVER Last Admin: 10/14/19 13:28 Dose: 650 mg Documented by: Atorvastatin Calcium (Lipitor -) 20 mg PO HS [facility] Last Admin: 10/16/19 22:03 Dose: 20 mg Documented by: Duloxetine HCl (Cymbalta -) 30 mg PO DAILY [facility] Last Admin: 10/17/19 09:13 Dose: 30 mg Documented by: Gabapentin (Neurontin -) 600 mg PO TID [facility] Last Admin: 10/17/19 13:47 Dose: 600 mg Documented by: Heparin Sodium (Porcine) (Heparin -) 5,000 unit SQ BID [facility] Last Admin: 10/17/19 09:13 Dose: 5,000 unit Documented by: Piperacillin Sod/Tazobactam (Sod 3.375 gm/ Dextrose) 50 mls @ 100 mls/hr IVPB Q8H-IV [facility]; Protocol Last Admin: 10/17/19 09:14 Dose: 100 mls/hr Documented by: Insulin Aspart (Novolog Vial Sliding Scale -) 1 vial SQ ACHS [facility]; Protocol Last Admin: 10/17/19 11:20 Dose: 4 units Documented by: Metoclopramide HCl (Reglan -) 10 mg PO Q8H PRN PRN Reason: NAUSEA Last Admin: 10/15/19 22:05 Dose: 10 mg Documented by: Ondansetron HCl (Zofran Injection) 4 mg IVPUSH Q6H PRN PRN Reason: NAUSEA Last Admin: 10/16/19 14:08 Dose: 4 mg Documented by: Pantoprazole Sodium (Protonix -) 40 mg PO DAILY [facility] Last Admin: 10/17/19 09:14 Dose: 40 mg Documented by: - Objective Vital Signs: Vital Signs Temperature 98.3 F 10/17/19 14:00 Pulse Rate 92 H 10/17/19 14:00 Respiratory Rate 18 10/17/19 14:00 Blood Pressure 104/60 10/17/19 14:00 O2 Sat by Pulse Oximetry (%) 96 10/17/19 09:00 Constitutional: Yes: No Distress HENT: Yes: Atraumatic Neck: Yes: Supple Cardiovascular: Yes: Regular Rate and Rhythm Respiratory: Yes: CTA Bilaterally Gastrointestinal: Yes: Normal Bowel Sounds Extremities: Yes: WNL Neurological: Yes: Alert, Oriented Labs: CBC, BMP 10/16/19 07:50 10/16/19 07:50 Problem List - Problems (1) Pyelonephritis Assessment/Plan: iv abx cxs noted Code(s): N12 - TUBULO-INTERSTITIAL NEPHRITIS, NOT SPCF ACUTE OR CHRONIC (2) Diabetes Assessment/Plan: on bgms Code(s): E11.9 - TYPE 2 DIABETES MELLITUS WITHOUT COMPLICATIONS (3) HTN (hypertension) Assessment/Plan: monitor Code(s): I10 - ESSENTIAL (PRIMARY) HYPERTENSION (4) UTI (urinary tract infection) Assessment/Plan: iv abx id on board Code(s): N39.0 - URINARY TRACT INFECTION, SITE NOT SPECIFIED Assessment/Plan covering for dr davis today
[2019-10-17] MEDS ORDERED: INSULIN (NOVOLOG) ASPART 100 UNITS/ML 10ML VIAL ONE (17:31)
[2019-10-17] MEDS: ATORVASTATIN CA 20 MG TABLET (FP) PO SCH (22:29)
[2019-10-18] MEDS ORDERED: DEXTROSE 5%-0.45% SALINE 1,000 ML IV SCH (00:01)
[2019-10-18] MEDS ORDERED: DEXTROSE 5%-WATER - 50 ML IVPB ONE ×3 (01:30→18:40)
[2019-10-18] MEDS ORDERED: PIPERACILLIN/TAZOBACTAM 3.375 GM VIAL IVPB ONE ×3 (01:30→18:40)
[2019-10-18] MEDS: PIPERACILLIN/TAZOB 3.375 GM 3.375 GM in DEXTROSE 5%-WATER - 50 ML IVPB SCH ×3 (01:34→18:45)
[2019-10-18] MEDS: GABAPENTIN 300 MG CAPSULE PO SCH ×3 (05:39→21:21)
[2019-10-18] MEDS: INSULIN SLIDING SCALE (NOVOLOG) 1 VIAL SQ SCH ×4 (06:18→21:29)
[2019-10-18] MEDS: DULoxetine HCL 30 MG CAPSULE.DR PO SCH (10:12)
[2019-10-18] MEDS: HEPARIN NA (PORCINE) 5,000 UNITS/ML 1ML VIAL SQ SCH ×2 (10:12→21:21)
[2019-10-18] MEDS: PANTOPRAZOLE 40 MG TABLET PO SCH ×2 (10:15→18:45)
--- NOTE | 2019-10-18 11:07 | PN ---
Progress Note, Physician History of Present Illness: stable no complaints plan for cystoscopy today - Current Medication List Current Medications: Active Medications Acetaminophen (Tylenol -) 650 mg PO Q4H PRN PRN Reason: PAIN LEVEL 1 - 7/FEVER Last Admin: 10/14/19 13:28 Dose: 650 mg Documented by: Atorvastatin Calcium (Lipitor -) 20 mg PO HS [facility] Last Admin: 10/17/19 22:29 Dose: 20 mg Documented by: Duloxetine HCl (Cymbalta -) 30 mg PO DAILY [facility] Last Admin: 10/18/19 10:12 Dose: Not Given Documented by: Gabapentin (Neurontin -) 600 mg PO TID [facility] Last Admin: 10/18/19 05:39 Dose: Not Given Documented by: Heparin Sodium (Porcine) (Heparin -) 5,000 unit SQ BID [facility] Last Admin: 10/18/19 10:12 Dose: Not Given Documented by: Piperacillin Sod/Tazobactam (Sod 3.375 gm/ Dextrose) 50 mls @ 100 mls/hr IVPB Q8H-IV [facility]; Protocol Last Admin: 10/18/19 10:26 Dose: 100 mls/hr Documented by: Dextrose/Sodium Chloride (D5-1/2ns -) 1,000 mls @ 42 mls/hr IV ASDIR [facility] Last Admin: 10/18/19 01:35 Dose: 42 mls/hr Documented by: Insulin Aspart (Novolog Vial Sliding Scale -) 1 vial SQ ACHS [facility]; Protocol Last Admin: 10/18/19 06:18 Dose: 2 units Documented by: Metoclopramide HCl (Reglan -) 10 mg PO Q8H PRN PRN Reason: NAUSEA Last Admin: 10/15/19 22:05 Dose: 10 mg Documented by: Ondansetron HCl (Zofran Injection) 4 mg IVPUSH Q6H PRN PRN Reason: NAUSEA Last Admin: 10/16/19 14:08 Dose: 4 mg Documented by: Pantoprazole Sodium (Protonix -) 40 mg PO DAILY [facility] Last Admin: 10/18/19 10:15 Dose: Not Given Documented by: - Objective Vital Signs: Vital Signs Temperature 97.9 F 10/18/19 06:00 Pulse Rate 103 H 10/18/19 06:00 Respiratory Rate 18 10/18/19 06:00 Blood Pressure 104/68 10/18/19 06:00 O2 Sat by Pulse Oximetry (%) 97 10/18/19 09:00 Constitutional: Yes: No Distress, Calm Cardiovascular: Yes: S1, S2 Respiratory: Yes: Regular, CTA Bilaterally Gastrointestinal: Yes: Normal Bowel Sounds, Soft Musculoskeletal: Yes: WNL Extremities: Yes: WNL Neurological: Yes: Alert, Oriented Psychiatric: Yes: Alert, Oriented Labs: CBC, BMP 10/16/19 07:50 10/16/19 07:50 Assessment/Plan Problem List - Problems (1) Pyelonephritis Code(s): N12 - TUBULO-INTERSTITIAL NEPHRITIS, NOT SPCF ACUTE OR CHRONIC (2) Diabetes Code(s): E11.9 - TYPE 2 DIABETES MELLITUS WITHOUT COMPLICATIONS (3) HTN (hypertension) Code(s): I10 - ESSENTIAL (PRIMARY) HYPERTENSION (4) UTI (urinary tract infection) Code(s): N39.0 - URINARY TRACT INFECTION, SITE NOT SPECIFIED Assessment/Plan UTI/Pyelonephritis DM HTN HLD Recent E. coli UTI/Sepsis -- continue antibiotics, patient for cystoscopy today
--- NOTE | 2019-10-18 11:12 | HP ---
DATE OF ADMISSION: 10/12/2019 DATE OF DICTATION: 10/17/2019 CHIEF COMPLAINT/HISTORY OF PRESENT ILLNESS: Patient is a 64-year-old female admitted with urinary tract infection as well as suprapubic pain. The patient does have history of high blood pressure, diabetes, and dyslipidemia. A CT scan of her abdomen and pelvis revealed calcifications between 1 and 0.5 cm in the area of the left paraurethral region. This most likely is a urethral diverticulum. The patient will go in the morning for a cystoscopy and possible laser lithotripsy. Her urine culture revealed E. coli. Her latest white count is 11.1. Her BUN and creatinine were within normal limits. Her glucose was 263. The patient will be kept n.p.o. after midnight and will undergo a cystoscopy, possible urethral laser lithotripsy in the morning. Lidia [id number]
[2019-10-18] MEDS ORDERED: ONDANSETRON 4 MG/2 ML VIAL IVPUSH PRN (14:39)
[2019-10-18] MEDS ORDERED: PROMETHAZINE HCL 25 MG/1 ML VIAL IVPUSH PRN (14:39)
[2019-10-18] MEDS ORDERED: LACTATED RINGERS SOLUTION 1,000 ML IV SCH (14:45)
[2019-10-18] MEDS ORDERED: PROPOFOL 20 ML ONE (16:47)
[2019-10-18] MEDS ORDERED: LIDOCAINE HCL/PF 2% SDV 5ML VIAL ONE (16:48)
[2019-10-18] MEDS ORDERED: ceFAZolin SODIUM 1 GM VIAL IVPB ONE (16:54)
[2019-10-18] MEDS ORDERED: DEXAMETHASONE SOD PHOSPHATE 4 MG/1 ML VIAL ONE (16:57)
[2019-10-18] MEDS ORDERED: ceFAZolin SODIUM 1 GM VIAL ONE (16:57)
--- NOTE | 2019-10-18 17:20 | OP ---
Operative Note - Note: Operative Date: 10/18/19 Pre-Operative Diagnosis: rec. uti and bladder stones Operation: cysto and cystolithotripsy and urethral dilation Findings: mult. bladder stones Post-Operative Diagnosis: Same as Pre-op Surgeon: Jose Carlos Moss Anesthesia: General Specimens Removed: urine, stones Estimated Blood Loss (mls): 0 Instrument used (Debridements only): none Drains & Tubes with Location: 18f-10cc gates Drains, Volume Out (mls): 0 Blood Volume Replaced (mls): 0 Fluid Volume Replaced (mls): 0 Operative Report Dictated: Yes
--- NOTE | 2019-10-18 18:00 | PN ---
Progress Note, Physician History of Present Illness: s/p cystoscopy - Current Medication List Current Medications: Active Medications Fentanyl (Sublimaze Injection -) 50 mcg IVPUSH [id number] PRN PRN Reason: PAIN-PACU ORDER X 4 DOSES ONLY Stop: 10/19/19 14:38 - Objective Vital Signs: Vital Signs Temperature 97.0 F L 10/18/19 17:20 Pulse Rate 100 H 10/18/19 17:45 Respiratory Rate 19 10/18/19 17:45 Blood Pressure 123/76 10/18/19 17:45 O2 Sat by Pulse Oximetry (%) 100 10/18/19 17:45 Constitutional: Yes: No Distress HENT: Yes: Atraumatic Neck: Yes: Supple Cardiovascular: Yes: Regular Rate and Rhythm Respiratory: Yes: CTA Bilaterally Gastrointestinal: Yes: Normal Bowel Sounds Extremities: Yes: WNL Edema: No Neurological: Yes: Alert, Oriented Labs: CBC, BMP 10/16/19 07:50 10/16/19 07:50 Problem List - Problems (1) Pyelonephritis Assessment/Plan: iv abx cxs noted Code(s): N12 - TUBULO-INTERSTITIAL NEPHRITIS, NOT SPCF ACUTE OR CHRONIC (2) Diabetes Assessment/Plan: on bgms Code(s): E11.9 - TYPE 2 DIABETES MELLITUS WITHOUT COMPLICATIONS (3) HTN (hypertension) Assessment/Plan: monitor Code(s): I10 - ESSENTIAL (PRIMARY) HYPERTENSION (4) UTI (urinary tract infection) Assessment/Plan: iv abx id on board Code(s): N39.0 - URINARY TRACT INFECTION, SITE NOT SPECIFIED (5) Suspected 2019 novel coronavirus infection Code(s): Z20.828 - CONTACT W AND EXPOSURE TO OTH VIRAL COMMUNICABLE DISEASES Assessment/Plan had cystoscopy doing well covering for dr davis today
[2019-10-18] MEDS: LACTATED RINGERS SOLUTION 1,000 ML/1,000 ML INFUS.BAG IV SCH (18:46)
--- NOTE | 2019-10-18 19:12 | PN ---
Progress Note (short form) - Note Progress Note: came to see the patient she was in cystoscopy
[2019-10-18] MEDS: ATORVASTATIN CA 20 MG TABLET (FP) PO SCH (21:21)
--- NOTE | 2019-10-18 23:25 | PN ---
DATE OF VISIT: DATE OF DICTATION: 10/18/2019 PREOPERATIVE NOTE The patient is a 64-year-old female admitted with urosepsis and suprapubic pain. She also has history of high blood pressure and diabetes. A CT scan of her abdomen and pelvis revealed calcifications in the mid urethra to the right and left of the lumen. This most likely is a urethral diverticulum with stones. The patient continues to have dysuria and has had recurrence bouts of infection. Will take patient to OR for cystoscopy and possible laser lithotripsy of urethral diverticulum stones. This was explained to patient, and she agreed. LEE ANN SLATER M.D. [id number]
[2019-10-19] MEDS ORDERED: DEXTROSE 5%-WATER - 50 ML IVPB ONE ×3 (01:29→17:00)
[2019-10-19] MEDS ORDERED: PIPERACILLIN/TAZOBACTAM 3.375 GM VIAL IVPB ONE ×3 (01:29→17:00)
[2019-10-19] MEDS: ACETAMINOPHEN 325 MG TABLET (FP) PO PRN ×2 (01:31→13:54)
[2019-10-19] MEDS: PIPERACILLIN/TAZOB 3.375 GM 3.375 GM in DEXTROSE 5%-WATER - 50 ML IVPB SCH ×3 (01:32→17:07)
[2019-10-19] MEDS: GABAPENTIN 300 MG CAPSULE PO SCH ×3 (05:30→22:09)
[2019-10-19] MEDS: INSULIN SLIDING SCALE (NOVOLOG) 1 VIAL SQ SCH ×4 (06:12→22:17)
[2019-10-19 08:05] LABS: BASO % 0.4 % (0-2.0); HEMATOCRIT 35.4 % (32.4-45.2); HEMOGLOBIN 11.8 GM/dL (10.7-15.3); LYMPH % 12.4 % (8-40); MCH 30.4 pg (25.7-33.7); MCHC 33.3 g/dl (32.0-36.0); MEAN CELL VOLUME 91.2 fl (80-96); NEUT % 82.2 % (42.8-82.8); PLATELET COUNT 267 K/MM3 (134-434); RBC 3.88 M/mm3 (3.60-5.2); RDW 14.2 % (11.6-15.6); WHITE BLOOD COUNT 9.8 K/mm3 (4.0-10.0)
[2019-10-19] MEDS: LACTATED RINGERS SOLUTION 1,000 ML/1,000 ML INFUS.BAG IV SCH ×2 (08:23→22:10)
[2019-10-19 08:45] LABS: ALBUMIN 3.2 g/dl (3.4-5.0); BILIRUBIN,TOTAL 0.4 mg/dL (0.2-1); BLOOD UREA NITROGEN 9.6 mg/dL (7-18); CREATININE 0.8 mg/dL (0.55-1.3); POTASSIUM 3.9 mmol/L (3.5-5.1); TOT PROT 6.8 g/dl (6.4-8.2)
[2019-10-19] MEDS ORDERED: PT OWN MED DRAWER 7, Y5N ONE (09:20)
[2019-10-19] MEDS: PANTOPRAZOLE 40 MG TABLET PO SCH (09:34)
[2019-10-19] MEDS: HEPARIN NA (PORCINE) 5,000 UNITS/ML 1ML VIAL SQ SCH ×2 (09:34→22:09)
[2019-10-19] MEDS: DULoxetine HCL 30 MG CAPSULE.DR PO SCH (09:34)
--- NOTE | 2019-10-19 10:37 | PN ---
Progress Note, Physician History of Present Illness: stable no complaints - Current Medication List Current Medications: Active Medications Acetaminophen (Tylenol -) 650 mg PO Q6H PRN PRN Reason: FEVER Last Admin: 10/19/19 01:31 Dose: 650 mg Documented by: Atorvastatin Calcium (Lipitor -) 20 mg PO HS [facility] Last Admin: 10/18/19 21:21 Dose: 20 mg Documented by: Duloxetine HCl (Cymbalta -) 30 mg PO DAILY [facility] Last Admin: 10/19/19 09:34 Dose: 30 mg Documented by: Fentanyl (Sublimaze Injection -) 50 mcg IVPUSH [id number] PRN PRN Reason: PAIN-PACU ORDER X 4 DOSES ONLY Stop: 10/19/19 14:38 Gabapentin (Neurontin -) 600 mg PO TID [facility] Last Admin: 10/19/19 05:30 Dose: 600 mg Documented by: Heparin Sodium (Porcine) (Heparin -) 5,000 unit SQ BID [facility] Last Admin: 10/19/19 09:34 Dose: 5,000 unit Documented by: Piperacillin Sod/Tazobactam (Sod 3.375 gm/ Dextrose) 50 mls @ 100 mls/hr IVPB Q8H-IV [facility]; Protocol Last Admin: 10/19/19 09:34 Dose: 100 mls/hr Documented by: Lactated Ringer's (Lactated Ringers Solution) 1,000 ml in 1,000 mls @ 83 mls/hr IV ASDIR [facility] Last Admin: 10/19/19 08:23 Dose: 83 mls/hr Documented by: Insulin Aspart (Novolog Vial Sliding Scale -) 1 vial SQ ACHS [facility]; Protocol Last Admin: 10/19/19 06:12 Dose: 4 units Documented by: Ondansetron HCl (Zofran Injection) 4 mg IVPB Q4H PRN PRN Reason: NAUSEA AND/OR VOMITING Pantoprazole Sodium (Protonix -) 40 mg PO DAILY [facility] Last Admin: 10/19/19 09:34 Dose: 40 mg Documented by: - Objective Vital Signs: Vital Signs Temperature 97.5 F L 10/19/19 08:40 Pulse Rate 78 10/19/19 08:40 Respiratory Rate 20 10/19/19 08:40 Blood Pressure 108/66 10/19/19 08:40 O2 Sat by Pulse Oximetry (%) 97 10/18/19 21:00 Constitutional: Yes: No Distress, Calm Cardiovascular: Yes: S1, S2 Respiratory: Yes: Regular, CTA Bilaterally Gastrointestinal: Yes: Normal Bowel Sounds, Soft Musculoskeletal: Yes: WNL Extremities: Yes: WNL Neurological: Yes: Alert, Oriented Psychiatric: Yes: Alert, Oriented Labs: CBC, BMP 10/19/19 06:40 10/19/19 06:40 Assessment/Plan Problem List - Problems (1) Pyelonephritis Code(s): N12 - TUBULO-INTERSTITIAL NEPHRITIS, NOT SPCF ACUTE OR CHRONIC (2) Diabetes Code(s): E11.9 - TYPE 2 DIABETES MELLITUS WITHOUT COMPLICATIONS (3) HTN (hypertension) Code(s): I10 - ESSENTIAL (PRIMARY) HYPERTENSION (4) UTI (urinary tract infection) Code(s): N39.0 - URINARY TRACT INFECTION, SITE NOT SPECIFIED Assessment/Plan UTI/Pyelonephritis DM HTN HLD Recent E. coli UTI/Sepsis -- continue antibiotics, rest as per the team
[2019-10-19] MEDS ORDERED: INSULIN (NOVOLOG) ASPART 100 UNITS/ML 10ML VIAL ONE (11:14)
[2019-10-19] MEDS ORDERED: MAG HYDROX/AL HYDROX/SIMETH 30 ML UNIT-DOSE CUP PO ONE (12:15)
--- NOTE | 2019-10-19 13:48 | OP ---
DATE OF OPERATION: 10/18/2019 PREOPERATIVE DIAGNOSIS: Recurrent urinary tract infection, bladder stone. POSTOPERATIE DIAGNOSIS: Recurrent urinary tract infection, bladder stone. OPERATIVE PROCEDURE: Cystourethroscopy, laser lithotripsy, evacuation of bladder stones, and urethral dilation. ANESTHESIA: General. DESCRIPTION OF PROCEDURE: Under above-stated anesthesia, patient was prepped and draped in the usual sterile manner. She was placed in the dorsal lithotomy position. Inspection of the external introitus revealed a grade 3 cystorectocele with atrophic vaginal mucosa. The meatus appeared to be scarred and calibrated to 20-Chadian. This was dilated to 30-Chadian without difficulty or bleeding. Cystoscopy revealed squamous metaplasia. Several stones were found in the bladder, the largest one, about 1 cm, was broken up with a 300 holmium fiber. The rest of the stones were irrigated out with an [employer]ContactForm evacuator as well as a stone basket. No active bleeding was noted. Bilateral ureteral orifices were within normal limits with efflux of clear urine. No lesions were seen. The bladder was emptied. The scope was removed. A 18-Chadian Page was connected to a leg bag. The patient tolerated the procedure well. She returned to the recovery room in good condition. Lidia [id number]
--- NOTE | 2019-10-19 21:35 | PN ---
Progress Note, Physician History of Present Illness: No new complaints - Current Medication List Current Medications: Active Medications Acetaminophen (Tylenol -) 650 mg PO Q6H PRN PRN Reason: FEVER Last Admin: 10/19/19 13:54 Dose: 650 mg Documented by: Atorvastatin Calcium (Lipitor -) 20 mg PO HS [facility] Last Admin: 10/18/19 21:21 Dose: 20 mg Documented by: Duloxetine HCl (Cymbalta -) 30 mg PO DAILY [facility] Last Admin: 10/19/19 09:34 Dose: 30 mg Documented by: Gabapentin (Neurontin -) 600 mg PO TID [facility] Last Admin: 10/19/19 13:46 Dose: 600 mg Documented by: Heparin Sodium (Porcine) (Heparin -) 5,000 unit SQ BID [facility] Last Admin: 10/19/19 09:34 Dose: 5,000 unit Documented by: Piperacillin Sod/Tazobactam (Sod 3.375 gm/ Dextrose) 50 mls @ 100 mls/hr IVPB Q8H-IV [facility]; Protocol Last Admin: 10/19/19 17:07 Dose: 100 mls/hr Documented by: Lactated Ringer's (Lactated Ringers Solution) 1,000 ml in 1,000 mls @ 83 mls/hr IV ASDIR [facility] Last Admin: 10/19/19 08:23 Dose: 83 mls/hr Documented by: Insulin Aspart (Novolog Vial Sliding Scale -) 1 vial SQ ACHS [facility]; Protocol Last Admin: 10/19/19 16:31 Dose: 8 units Documented by: Ondansetron HCl (Zofran Injection) 4 mg IVPB Q4H PRN PRN Reason: NAUSEA AND/OR VOMITING Pantoprazole Sodium (Protonix -) 40 mg PO DAILY [facility] Last Admin: 10/19/19 09:34 Dose: 40 mg Documented by: - Objective Vital Signs: Vital Signs Temperature 98.3 F 10/19/19 14:00 Pulse Rate 89 10/19/19 14:00 Respiratory Rate 20 10/19/19 14:00 Blood Pressure 113/70 10/19/19 14:00 O2 Sat by Pulse Oximetry (%) 97 10/18/19 21:00 Cardiovascular: Yes: WNL, Regular Rate and Rhythm Respiratory: Yes: WNL, Regular, CTA Bilaterally Gastrointestinal: Yes: WNL, Normal Bowel Sounds, Soft Labs: CBC, BMP 10/19/19 06:40 10/19/19 06:40 Problem List - Problems (1) UTI (urinary tract infection) Assessment/Plan: IV zosyn Urine culture (+) for Ecoli S/P cystoscopy Code(s): N39.0 - URINARY TRACT INFECTION, SITE NOT SPECIFIED (2) Abdominal pain Assessment/Plan: Ct scan abd/pelvis did not show any acute pathology Cont protonix reglan added GI consult Code(s): R10.9 - UNSPECIFIED ABDOMINAL PAIN (3) Vomiting Assessment/Plan: ?Due to gastritis IV zofran Reglan added GI consult Code(s): R11.10 - VOMITING, UNSPECIFIED (4) Diabetes Assessment/Plan: Cont sliding scale w/ coverage Code(s): E11.9 - TYPE 2 DIABETES MELLITUS WITHOUT COMPLICATIONS (5) HTN (hypertension) Code(s): I10 - ESSENTIAL (PRIMARY) HYPERTENSION
[2019-10-19] MEDS: ATORVASTATIN CA 20 MG TABLET (FP) PO SCH (22:10)
[2019-10-20] MEDS ORDERED: DEXTROSE 5%-WATER - 50 ML IVPB ONE ×2 (01:06→09:06)
[2019-10-20] MEDS ORDERED: PIPERACILLIN/TAZOBACTAM 3.375 GM VIAL IVPB ONE ×2 (01:06→09:06)
[2019-10-20] MEDS: PIPERACILLIN/TAZOB 3.375 GM 3.375 GM in DEXTROSE 5%-WATER - 50 ML IVPB SCH ×2 (01:08→09:22)
[2019-10-20] MEDS: GABAPENTIN 300 MG CAPSULE PO SCH ×3 (05:38→22:13)
[2019-10-20] MEDS: INSULIN SLIDING SCALE (NOVOLOG) 1 VIAL SQ SCH ×4 (06:28→22:23)
[2019-10-20 08:59] LABS: BASO % 0.7 % (0-2.0); EOS % 1.8 % (0-4.5); HEMATOCRIT 36.3 % (32.4-45.2); LYMPH % 28.4 % (8-40); MCH 29.9 pg (25.7-33.7); MCHC 33.1 g/dl (32.0-36.0); MEAN CELL VOLUME 90.5 fl (80-96); MEAN PLT VOLUME 8.6 fl (7.5-11.1); MONO % 8.1 % (3.8-10.2); PLATELET COUNT 241 K/MM3 (134-434); RBC 4.01 M/mm3 (3.60-5.2); RDW 14.4 % (11.6-15.6); WHITE BLOOD COUNT 7.6 K/mm3 (4.0-10.0)
[2019-10-20] MEDS ORDERED: PT OWN MED DRAWER 7, Y5N ONE (09:06)
[2019-10-20] MEDS: DULoxetine HCL 30 MG CAPSULE.DR PO SCH (09:22)
[2019-10-20] MEDS: PANTOPRAZOLE 40 MG TABLET PO SCH (09:22)
[2019-10-20] MEDS: HEPARIN NA (PORCINE) 5,000 UNITS/ML 1ML VIAL SQ SCH ×2 (09:24→22:13)
[2019-10-20 09:28] LABS: ALBUMIN 3.3 g/dl (3.4-5.0); BILIRUBIN,TOTAL 0.2 mg/dL (0.2-1); CREATININE 0.8 mg/dL (0.55-1.3); POTASSIUM 4.1 mmol/L (3.5-5.1); TOT PROT 6.9 g/dl (6.4-8.2)
--- NOTE | 2019-10-20 10:15 | PN ---
Progress Note, Physician History of Present Illness: stable no new issues - Current Medication List Current Medications: Active Medications Acetaminophen (Tylenol -) 650 mg PO Q6H PRN PRN Reason: FEVER Last Admin: 10/19/19 13:54 Dose: 650 mg Documented by: Atorvastatin Calcium (Lipitor -) 20 mg PO HS [facility] Last Admin: 10/19/19 22:10 Dose: 20 mg Documented by: Duloxetine HCl (Cymbalta -) 30 mg PO DAILY [facility] Last Admin: 10/20/19 09:22 Dose: 30 mg Documented by: Gabapentin (Neurontin -) 600 mg PO TID [facility] Last Admin: 10/20/19 05:38 Dose: 600 mg Documented by: Heparin Sodium (Porcine) (Heparin -) 5,000 unit SQ BID [facility] Last Admin: 10/20/19 09:24 Dose: 5,000 unit Documented by: Piperacillin Sod/Tazobactam (Sod 3.375 gm/ Dextrose) 50 mls @ 100 mls/hr IVPB Q8H-IV [facility]; Protocol Last Admin: 10/20/19 09:22 Dose: 100 mls/hr Documented by: Lactated Ringer's (Lactated Ringers Solution) 1,000 ml in 1,000 mls @ 83 mls/hr IV ASDIR [facility] Last Admin: 10/19/19 22:10 Dose: 83 mls/hr Documented by: Insulin Aspart (Novolog Vial Sliding Scale -) 1 vial SQ ACHS [facility]; Protocol Last Admin: 10/20/19 06:28 Dose: 2 units Documented by: Ondansetron HCl (Zofran Injection) 4 mg IVPB Q4H PRN PRN Reason: NAUSEA AND/OR VOMITING Pantoprazole Sodium (Protonix -) 40 mg PO DAILY [facility] Last Admin: 10/20/19 09:22 Dose: 40 mg Documented by: - Objective Vital Signs: Vital Signs Temperature 98.4 F 10/20/19 09:01 Pulse Rate 91 H 10/20/19 09:01 Respiratory Rate 20 10/20/19 09:01 Blood Pressure 133/74 10/20/19 09:01 O2 Sat by Pulse Oximetry (%) 98 10/19/19 21:00 Constitutional: Yes: No Distress, Calm Cardiovascular: Yes: S1, S2 Respiratory: Yes: Regular, CTA Bilaterally Gastrointestinal: Yes: Normal Bowel Sounds, Soft Musculoskeletal: Yes: WNL Extremities: Yes: WNL Neurological: Yes: Alert, Oriented Psychiatric: Yes: Alert, Oriented Labs: CBC, BMP 10/20/19 08:40 10/20/19 08:40 Assessment/Plan Problem List - Problems (1) Pyelonephritis Code(s): N12 - TUBULO-INTERSTITIAL NEPHRITIS, NOT SPCF ACUTE OR CHRONIC (2) Diabetes Code(s): E11.9 - TYPE 2 DIABETES MELLITUS WITHOUT COMPLICATIONS (3) HTN (hypertension) Code(s): I10 - ESSENTIAL (PRIMARY) HYPERTENSION (4) UTI (urinary tract infection) Code(s): N39.0 - URINARY TRACT INFECTION, SITE NOT SPECIFIED Assessment/Plan UTI/Pyelonephritis DM HTN HLD Recent E. coli UTI/Sepsis -repeat cx noted will stop abx
--- NOTE | 2019-10-20 13:19 | PN ---
Progress Note, Physician History of Present Illness: s/p cystoscopy - Current Medication List Current Medications: Active Medications Acetaminophen (Tylenol -) 650 mg PO Q6H PRN PRN Reason: FEVER Last Admin: 10/19/19 13:54 Dose: 650 mg Documented by: Atorvastatin Calcium (Lipitor -) 20 mg PO HS [facility] Last Admin: 10/19/19 22:10 Dose: 20 mg Documented by: Duloxetine HCl (Cymbalta -) 30 mg PO DAILY [facility] Last Admin: 10/20/19 09:22 Dose: 30 mg Documented by: Gabapentin (Neurontin -) 600 mg PO TID [facility] Last Admin: 10/20/19 05:38 Dose: 600 mg Documented by: Heparin Sodium (Porcine) (Heparin -) 5,000 unit SQ BID [facility] Last Admin: 10/20/19 09:24 Dose: 5,000 unit Documented by: Lactated Ringer's (Lactated Ringers Solution) 1,000 ml in 1,000 mls @ 83 mls/hr IV ASDIR [facility] Last Admin: 10/19/19 22:10 Dose: 83 mls/hr Documented by: Insulin Aspart (Novolog Vial Sliding Scale -) 1 vial SQ [facility]; Protocol Last Admin: 10/20/19 11:31 Dose: 8 units Documented by: Ondansetron HCl (Zofran Injection) 4 mg IVPB Q4H PRN PRN Reason: NAUSEA AND/OR VOMITING Pantoprazole Sodium (Protonix -) 40 mg PO DAILY [facility] Last Admin: 10/20/19 09:22 Dose: 40 mg Documented by: - Objective Vital Signs: Vital Signs Temperature 98.4 F 10/20/19 09:01 Pulse Rate 91 H 10/20/19 09:01 Respiratory Rate 20 10/20/19 09:01 Blood Pressure 133/74 10/20/19 09:01 O2 Sat by Pulse Oximetry (%) 98 10/19/19 21:00 Constitutional: Yes: No Distress HENT: Yes: Atraumatic Neck: Yes: Supple Cardiovascular: Yes: Regular Rate and Rhythm Respiratory: Yes: CTA Bilaterally Gastrointestinal: Yes: Normal Bowel Sounds Extremities: Yes: WNL Edema: No Neurological: Yes: Alert, Oriented Labs: CBC, BMP 10/20/19 08:40 10/20/19 08:40 Problem List - Problems (1) Pyelonephritis Assessment/Plan: off of abx Code(s): N12 - TUBULO-INTERSTITIAL NEPHRITIS, NOT SPCF ACUTE OR CHRONIC (2) Diabetes Assessment/Plan: on bgms Code(s): E11.9 - TYPE 2 DIABETES MELLITUS WITHOUT COMPLICATIONS (3) HTN (hypertension) Assessment/Plan: monitor Code(s): I10 - ESSENTIAL (PRIMARY) HYPERTENSION (4) UTI (urinary tract infection) Assessment/Plan: off of abx per id Code(s): N39.0 - URINARY TRACT INFECTION, SITE NOT SPECIFIED (5) Suspected 2019 novel coronavirus infection Code(s): Z20.828 - CONTACT W AND EXPOSURE TO H VIRAL COMMUNICABLE DISEASES Assessment/Plan covering for dr davis today
[2019-10-20] MEDS: ONDANSETRON 4 MG/2 ML VIAL IVPB PRN ×2 (13:42→22:12)
--- NOTE | 2019-10-20 16:10 | PATH ---
Surgical Pathology Report Patient Name: SARKIS ROBERTO Med. Rec. #: [id number] /Age/Gender: 1955 (Age: 64) / F Account: [id number] Location: [facility] MED/SURG Taken: 10/18/2019 Received: 10/19/2019 Reported: 10/20/2019 Physicians: Lidia Douglass M.D. Specimen(s) Received BLADER STONE Clinical History UTI/stones Final Diagnosis BLADDER STONE, REMOVAL: CONSISTENT WITH BLADDER CALCULI. SENT TO CHEMICAL ANALYSIS. Electronically Signed Arnulfo Andrews M.D. Gross Description Received fresh labeled "bladder stone," is a 0.8 x 0.5 x 0.2 cm aggregate of mercer chan, irregular calculi. The specimen is sent for chemical analysis. DL/10/19/2019 saudi/10/19/2019
[2019-10-20] MEDS: SIMETHICONE 80 MG TAB.CHEW (FP) PO PRN ×2 (16:21→22:13)
[2019-10-20] MEDS ORDERED: INSULIN (NOVOLOG) ASPART 100 UNITS/ML 10ML VIAL ONE (21:22)
[2019-10-20] MEDS: ATORVASTATIN CA 20 MG TABLET (FP) PO SCH (22:13)
[2019-10-21] MEDS: GABAPENTIN 300 MG CAPSULE PO SCH ×3 (06:17→21:23)
[2019-10-21] MEDS: INSULIN SLIDING SCALE (NOVOLOG) 1 VIAL SQ SCH ×4 (06:18→21:23)
[2019-10-21] MEDS: HEPARIN NA (PORCINE) 5,000 UNITS/ML 1ML VIAL SQ SCH ×2 (09:49→21:23)
[2019-10-21] MEDS: DULoxetine HCL 30 MG CAPSULE.DR PO SCH (09:49)
[2019-10-21] MEDS: PANTOPRAZOLE 40 MG TABLET PO SCH (09:49)
[2019-10-21] MEDS ORDERED: PT OWN MED DRAWER 7, Y5N ONE (11:20)
[2019-10-21] MEDS: ACETAMINOPHEN 325 MG TABLET (FP) PO PRN (18:34)
[2019-10-21] MEDS: ATORVASTATIN CA 20 MG TABLET (FP) PO SCH (21:23)
[2019-10-21] MEDS: ONDANSETRON 4 MG/2 ML VIAL IVPB PRN (21:24)
--- NOTE | 2019-10-21 21:32 | PN ---
Progress Note, Physician History of Present Illness: No new complaints - Current Medication List Current Medications: Active Medications Acetaminophen (Tylenol -) 650 mg PO Q6H PRN PRN Reason: FEVER Last Admin: 10/21/19 18:34 Dose: 650 mg Documented by: Atorvastatin Calcium (Lipitor -) 20 mg PO HS [facility] Last Admin: 10/21/19 21:23 Dose: 20 mg Documented by: Duloxetine HCl (Cymbalta -) 30 mg PO DAILY [facility] Last Admin: 10/21/19 09:49 Dose: 30 mg Documented by: Gabapentin (Neurontin -) 600 mg PO TID [facility] Last Admin: 10/21/19 21:23 Dose: 600 mg Documented by: Heparin Sodium (Porcine) (Heparin -) 5,000 unit SQ BID [facility] Last Admin: 10/21/19 21:23 Dose: 5,000 unit Documented by: Insulin Aspart (Novolog Vial Sliding Scale -) 1 vial SQ ACHS [facility]; Protocol Last Admin: 10/21/19 21:23 Dose: 4 units Documented by: Ondansetron HCl (Zofran Injection) 4 mg IVPB Q4H PRN PRN Reason: NAUSEA AND/OR VOMITING Last Admin: 10/21/19 21:24 Dose: 4 mg Documented by: Pantoprazole Sodium (Protonix -) 40 mg PO DAILY [facility] Last Admin: 10/21/19 09:49 Dose: 40 mg Documented by: Simethicone (Mylicon -) 80 mg PO QID PRN PRN Reason: DYSPEPSIA Last Admin: 10/20/19 22:13 Dose: 80 mg Documented by: - Objective Vital Signs: Vital Signs Temperature 97.6 F 10/21/19 19:26 Pulse Rate 103 H 10/21/19 19:26 Respiratory Rate 20 10/21/19 20:37 Blood Pressure 95/57 L 10/21/19 19:26 O2 Sat by Pulse Oximetry (%) 96 10/21/19 20:37 Cardiovascular: Yes: WNL, Regular Rate and Rhythm Respiratory: Yes: WNL, Regular, CTA Bilaterally Gastrointestinal: Yes: WNL, Normal Bowel Sounds, Soft Labs: CBC, BMP 10/20/19 08:40 10/20/19 08:40 Problem List - Problems (1) UTI (urinary tract infection) Assessment/Plan: Pt now off antibiotics Urine culture (+) for Ecoli S/P cystoscopy Code(s): N39.0 - URINARY TRACT INFECTION, SITE NOT SPECIFIED (2) Abdominal pain Assessment/Plan: Ct scan abd/pelvis did not show any acute pathology Cont protonix Code(s): R10.9 - UNSPECIFIED ABDOMINAL PAIN (3) Vomiting Assessment/Plan: ?Due to gastritis vs gastroparesis IV zofran Code(s): R11.10 - VOMITING, UNSPECIFIED (4) Diabetes Assessment/Plan: Cont sliding scale w/ coverage Code(s): E11.9 - TYPE 2 DIABETES MELLITUS WITHOUT COMPLICATIONS (5) HTN (hypertension) Code(s): I10 - ESSENTIAL (PRIMARY) HYPERTENSION
[2019-10-22] MEDS: INSULIN SLIDING SCALE (NOVOLOG) 1 VIAL SQ SCH ×4 (06:20→21:31)
[2019-10-22] MEDS: GABAPENTIN 300 MG CAPSULE PO SCH ×3 (06:20→21:07)
[2019-10-22] MEDS: ACETAMINOPHEN 325 MG TABLET (FP) PO PRN (06:20)
[2019-10-22] MEDS: SIMETHICONE 80 MG TAB.CHEW (FP) PO PRN (10:04)
[2019-10-22] MEDS: HEPARIN NA (PORCINE) 5,000 UNITS/ML 1ML VIAL SQ SCH ×2 (10:04→21:07)
[2019-10-22] MEDS: ONDANSETRON 4 MG/2 ML VIAL IVPB PRN ×2 (10:04→19:04)
[2019-10-22] MEDS: DULoxetine HCL 30 MG CAPSULE.DR PO SCH (10:04)
[2019-10-22] MEDS: PANTOPRAZOLE 40 MG TABLET PO SCH (10:04)
--- NOTE | 2019-10-22 11:42 | PN ---
Progress Note, Physician History of Present Illness: stable no new issues - Current Medication List Current Medications: Active Medications Acetaminophen (Tylenol -) 650 mg PO Q6H PRN PRN Reason: FEVER Last Admin: 10/22/19 06:20 Dose: 650 mg Documented by: Atorvastatin Calcium (Lipitor -) 20 mg PO HS [facility] Last Admin: 10/21/19 21:23 Dose: 20 mg Documented by: Duloxetine HCl (Cymbalta -) 30 mg PO DAILY [facility] Last Admin: 10/22/19 10:04 Dose: 30 mg Documented by: Gabapentin (Neurontin -) 600 mg PO TID [facility] Last Admin: 10/22/19 06:20 Dose: 600 mg Documented by: Heparin Sodium (Porcine) (Heparin -) 5,000 unit SQ BID [facility] Last Admin: 10/22/19 10:04 Dose: 5,000 unit Documented by: Insulin Aspart (Novolog Vial Sliding Scale -) 1 vial SQ ACHS [facility]; Protocol Last Admin: 10/22/19 06:20 Dose: 2 units Documented by: Ondansetron HCl (Zofran Injection) 4 mg IVPB Q4H PRN PRN Reason: NAUSEA AND/OR VOMITING Last Admin: 10/22/19 10:04 Dose: 4 mg Documented by: Pantoprazole Sodium (Protonix -) 40 mg PO DAILY [facility] Last Admin: 10/22/19 10:04 Dose: 40 mg Documented by: Simethicone (Mylicon -) 80 mg PO QID PRN PRN Reason: DYSPEPSIA Last Admin: 10/22/19 10:04 Dose: 80 mg Documented by: - Objective Vital Signs: Vital Signs Temperature 98.4 F 10/22/19 10:00 Pulse Rate 100 H 10/22/19 10:00 Respiratory Rate 18 10/22/19 10:00 Blood Pressure 105/59 L 10/22/19 10:00 O2 Sat by Pulse Oximetry (%) 96 10/22/19 09:00 Constitutional: Yes: No Distress, Calm Cardiovascular: Yes: S1, S2 Respiratory: Yes: Regular, CTA Bilaterally Gastrointestinal: Yes: Soft, Other (vomiting) Musculoskeletal: Yes: WNL Extremities: Yes: WNL Neurological: Yes: Alert, Oriented Labs: CBC, BMP 10/20/19 08:40 10/20/19 08:40 Assessment/Plan Problem List - Problems (1) Pyelonephritis Code(s): N12 - TUBULO-INTERSTITIAL NEPHRITIS, NOT SPCF ACUTE OR CHRONIC (2) Diabetes Code(s): E11.9 - TYPE 2 DIABETES MELLITUS WITHOUT COMPLICATIONS (3) HTN (hypertension) Code(s): I10 - ESSENTIAL (PRIMARY) HYPERTENSION (4) UTI (urinary tract infection) Code(s): N39.0 - URINARY TRACT INFECTION, SITE NOT SPECIFIED Assessment/Plan UTI/Pyelonephritis DM HTN HLD Recent E. coli UTI/Sepsis continue current mgmt plan for endoscopy tomorrow
[2019-10-22] MEDS ORDERED: INSULIN (NOVOLOG) ASPART 100 UNITS/ML 10ML VIAL ONE (11:51)
--- NOTE | 2019-10-22 18:28 | PN ---
Progress Note, Physician History of Present Illness: Pt w/ some vomiting after eating - Current Medication List Current Medications: Active Medications Acetaminophen (Tylenol -) 650 mg PO Q6H PRN PRN Reason: FEVER Last Admin: 10/22/19 06:20 Dose: 650 mg Documented by: Atorvastatin Calcium (Lipitor -) 20 mg PO HS [facility] Last Admin: 10/21/19 21:23 Dose: 20 mg Documented by: Duloxetine HCl (Cymbalta -) 30 mg PO DAILY [facility] Last Admin: 10/22/19 10:04 Dose: 30 mg Documented by: Gabapentin (Neurontin -) 600 mg PO TID [facility] Last Admin: 10/22/19 15:11 Dose: 600 mg Documented by: Heparin Sodium (Porcine) (Heparin -) 5,000 unit SQ BID [facility] Last Admin: 10/22/19 10:04 Dose: 5,000 unit Documented by: Insulin Aspart (Novolog Vial Sliding Scale -) 1 vial SQ ACHS [facility]; Protocol Last Admin: 10/22/19 17:10 Dose: 4 units Documented by: Ondansetron HCl (Zofran Injection) 4 mg IVPB Q4H PRN PRN Reason: NAUSEA AND/OR VOMITING Last Admin: 10/22/19 10:04 Dose: 4 mg Documented by: Pantoprazole Sodium (Protonix -) 40 mg PO DAILY [facility] Last Admin: 10/22/19 10:04 Dose: 40 mg Documented by: Simethicone (Mylicon -) 80 mg PO QID PRN PRN Reason: DYSPEPSIA Last Admin: 10/22/19 10:04 Dose: 80 mg Documented by: - Objective Vital Signs: Vital Signs Temperature 97.9 F 10/22/19 17:19 Pulse Rate 93 H 10/22/19 17:19 Respiratory Rate 18 10/22/19 17:19 Blood Pressure 97/66 10/22/19 17:19 O2 Sat by Pulse Oximetry (%) 96 10/22/19 09:00 Cardiovascular: Yes: WNL, Regular Rate and Rhythm Respiratory: Yes: WNL, Regular, CTA Bilaterally Gastrointestinal: Yes: WNL, Normal Bowel Sounds, Soft Labs: CBC, BMP 10/20/19 08:40 10/20/19 08:40 Problem List - Problems (1) UTI (urinary tract infection) Assessment/Plan: Pt now off antibiotics Urine culture (+) for Ecoli S/P cystoscopy DC planning for am Code(s): N39.0 - URINARY TRACT INFECTION, SITE NOT SPECIFIED (2) Abdominal pain Assessment/Plan: Ct scan abd/pelvis did not show any acute pathology Cont protonix Will add reglan Check UGI series Code(s): R10.9 - UNSPECIFIED ABDOMINAL PAIN (3) Vomiting Assessment/Plan: ?Due to gastritis vs gastroparesis IV zofran Reglan added Code(s): R11.10 - VOMITING, UNSPECIFIED (4) Diabetes Assessment/Plan: Cont sliding scale w/ coverage Code(s): E11.9 - TYPE 2 DIABETES MELLITUS WITHOUT COMPLICATIONS (5) HTN (hypertension) Code(s): I10 - ESSENTIAL (PRIMARY) HYPERTENSION
[2019-10-22] MEDS: ATORVASTATIN CA 20 MG TABLET (FP) PO SCH (21:07)
[2019-10-23] MEDS: GABAPENTIN 300 MG CAPSULE PO SCH ×2 (06:05→14:44)
[2019-10-23] MEDS: INSULIN SLIDING SCALE (NOVOLOG) 1 VIAL SQ SCH ×2 (06:11→11:44)
--- NOTE | 2019-10-23 10:55 | PN ---
Progress Note, Physician History of Present Illness: stable s/p endoscopy - Current Medication List Current Medications: Active Medications Acetaminophen (Tylenol -) 650 mg PO Q6H PRN PRN Reason: FEVER Last Admin: 10/22/19 06:20 Dose: 650 mg Documented by: Atorvastatin Calcium (Lipitor -) 20 mg PO HS [facility] Last Admin: 10/22/19 21:07 Dose: 20 mg Documented by: Duloxetine HCl (Cymbalta -) 30 mg PO DAILY [facility] Last Admin: 10/22/19 10:04 Dose: 30 mg Documented by: Gabapentin (Neurontin -) 600 mg PO TID [facility] Last Admin: 10/23/19 06:05 Dose: Not Given Documented by: Heparin Sodium (Porcine) (Heparin -) 5,000 unit SQ BID [facility] Last Admin: 10/22/19 21:07 Dose: 5,000 unit Documented by: Insulin Aspart (Novolog Vial Sliding Scale -) 1 vial SQ [facility]; Protocol Last Admin: 10/23/19 06:11 Dose: Not Given Documented by: Metoclopramide HCl (Reglan -) 5 mg PO ACLD [facility] Ondansetron HCl (Zofran Injection) 4 mg IVPB Q4H PRN PRN Reason: NAUSEA AND/OR VOMITING Last Admin: 10/22/19 19:04 Dose: 4 mg Documented by: Pantoprazole Sodium (Protonix -) 40 mg PO DAILY [facility] Last Admin: 10/22/19 10:04 Dose: 40 mg Documented by: Simethicone (Mylicon -) 80 mg PO QID PRN PRN Reason: DYSPEPSIA Last Admin: 10/22/19 10:04 Dose: 80 mg Documented by: - Objective Vital Signs: Vital Signs Temperature 98.1 F 10/23/19 06:00 Pulse Rate 98 H 10/23/19 06:00 Respiratory Rate 18 10/23/19 06:00 Blood Pressure 106/48 L 10/23/19 06:00 O2 Sat by Pulse Oximetry (%) 96 10/22/19 20:06 Constitutional: Yes: No Distress, Calm Cardiovascular: Yes: S1, S2 Respiratory: Yes: Regular, CTA Bilaterally Gastrointestinal: Yes: Soft, Other Musculoskeletal: Yes: WNL Extremities: Yes: WNL Neurological: Yes: Alert, Oriented Psychiatric: Yes: Alert, Oriented Labs: CBC, BMP 10/20/19 08:40 10/20/19 08:40 Assessment/Plan Problem List - Problems (1) Pyelonephritis Code(s): N12 - TUBULO-INTERSTITIAL NEPHRITIS, NOT SPCF ACUTE OR CHRONIC (2) Diabetes Code(s): E11.9 - TYPE 2 DIABETES MELLITUS WITHOUT COMPLICATIONS (3) HTN (hypertension) Code(s): I10 - ESSENTIAL (PRIMARY) HYPERTENSION (4) UTI (urinary tract infection) Code(s): N39.0 - URINARY TRACT INFECTION, SITE NOT SPECIFIED Assessment/Plan UTI/Pyelonephritis DM HTN HLD Recent E. coli UTI/Sepsis continue current mgmt endoscopyt
[2019-10-23] MEDS: HEPARIN NA (PORCINE) 5,000 UNITS/ML 1ML VIAL SQ SCH (11:20)
[2019-10-23] MEDS: PANTOPRAZOLE 40 MG TABLET PO SCH (11:20)
[2019-10-23] MEDS: DULoxetine HCL 30 MG CAPSULE.DR PO SCH (11:20)
[2019-10-23] MEDS ORDERED: METOCLOPRAMIDE HCL 10 MG TABLET (FP) PO SCH (11:30)
[2019-10-23 14:02] VITALS: BP 100/62; PULSE 118; TEMP 97.5
[2019-11-07 08:52] LABS: SIZE 3 X 6
[2019-11-07 08:53] LABS: CA OXALATE MONOHYDR. 10%; WEIGHT 65
== END 2019-10-23 16:33 | disposition home or self-care (01) | DRG 690 ==
LOC: JER 13:03 → JERBED 17:57 → J8W 20:09
PROVIDERS: ADMIT Internal Medicine; ATTEND Internal Medicine
PROC: 0T7D8ZZ Dilation of Urethra, Via Natural or Artificial Opening Endoscopic (ICD-10-PCS; 2019-10-18)
PROC: 0TCB8ZZ Extirpation of Matter from Bladder, Via Natural or Artificial Opening Endoscopic (ICD-10-PCS; principal; 2019-10-18 14:00)
DX: N12 Tubulo-interstitial nephritis, not specified as acute or chronic (principal); N21.0 Calculus in bladder; N39.0 Urinary tract infection, site not specified; I10 Essential (primary) hypertension; E78.5 Hyperlipidemia, unspecified; E11.42 Type 2 diabetes mellitus with diabetic polyneuropathy; R11.10 Vomiting, unspecified; R10.9 Unspecified abdominal pain; G51.0 Bell's palsy; B96.20 Unspecified Escherichia coli [E. coli] as the cause of diseases classified elsewhere; N81.10 Cystocele, unspecified; N95.2 Postmenopausal atrophic vaginitis; N32.89 Other specified disorders of bladder
CPT/HCPCS: 36415; 71046-TC-FY; 74178-TC; 74220-TC-FY; 74240-TC-FY; 80053; 81003; 82150; 82360; 82550; 82962; 83036; 83690; 84484; 85025; 87086; 87186; 88300-TC; 93005; 93010; 94760; 99285-25; J1644; Q9967; U0003

== ENCOUNTER 2021-02-10 13:37 | Emergency (ER) | payer OTHER ==
[2021-02-10 14:10] VITALS: BMI 24.8
[2021-02-10] MEDS ORDERED: CASIRIVIMAB/IMDEVIMAB 10 ML in SODIUM CHLORIDE 100 ML IVPB ONE (14:39)
[2021-02-10 16:11] VITALS: TEMP 98.3
[2021-02-10 17:20] VITALS: BP 135/74; PULSE 110
== END 2021-02-10 17:19 | disposition home or self-care (01) ==
LOC: JER 13:37 → JCOVINFU 13:37
DX: U07.1 COVID-19 (principal)
CPT/HCPCS: 99284-25; Q0240

== ENCOUNTER 2021-09-09 04:46 | Day surgery (SDC) | payer OTHER ==
[2021-09-04 15:15] VITALS: BMI 22.3
[2021-09-09] MEDS ORDERED: ceFAZolin SODIUM 1 GM VIAL ONE (10:11)
[2021-09-09] MEDS ORDERED: MIDAZOLAM HCL 2 MG/2 ML SINGLE DOSE VIAL ONE (10:12)
[2021-09-09] MEDS ORDERED: FENTANYL CITRATE/PF 50 MCG/ML VIAL ONE ×2 (10:12)
[2021-09-09] MEDS ORDERED: ceFAZolin SODIUM 1 GM VIAL IVPB ONE (10:16)
[2021-09-09 13:45] VITALS: BP 119/67; PULSE 92; TEMP 98.2
== END 2021-09-09 13:45 | disposition home or self-care (01) ==
LOC: JASU-SURG 04:46
PROVIDERS: ATTEND Urology
PROC: 0TF3XZZ Fragmentation in Right Kidney Pelvis, External Approach (ICD-10-PCS; principal; 2021-09-09 09:45)
DX: N20.0 Calculus of kidney (principal)
CPT/HCPCS: 82962

== ENCOUNTER 2024-06-23 05:40 | Day surgery (SDC) | payer OTHER ==
[2024-06-23] MEDS ORDERED: INDOMETHACIN 50 MG RECTAL SUPPOSITORY PR ONE (09:04)
[2024-06-23 10:50] VITALS: TEMP 97.3
[2024-06-23] MEDS ORDERED: LACTATED RINGERS SOLUTION 1000 ML INFUS.BAG IV ONE (11:02)
[2024-06-23 11:43] VITALS: RESP 17
[2024-06-23 11:47] VITALS: BP 130/88; PULSE 81
== END 2024-06-23 13:25 | disposition home or self-care (01) ==
LOC: JASU-ENDO 05:40
PROVIDERS: ATTEND Internal Medicine Gastroenterology
PROC: 0FC78ZZ Extirpation of Matter from Common Hepatic Duct, Via Natural or Artificial Opening Endoscopic (ICD-10-PCS; principal; 2024-06-23 08:30)
DX: K80.50 Calculus of bile duct without cholangitis or cholecystitis without obstruction (principal)
CPT/HCPCS: 76000-TC-FY; 82962

== ENCOUNTER 2024-09-14 16:40 | Inpatient (IN) | payer OTHER ==
[2024-09-14 19:41] LABS: ABSOLUTE IMMATURE GRANULOCYTES 0.03 x10^3/uL (0.0-0.031); BASOPHILS # 0.07 x10^3/uL (0.01-0.08); EOSINOPHIL % 1.9 % (0.7-5.8); EOSINOPHILS # 0.15 x10^3/uL (0.04-0.36); HEMATOCRIT 36.5 % (34.1-44.9); HEMOGLOBIN 12.3 g/dL (11.2-15.7); MCHC 33.7 g/dl (32.2-35.5); MEAN CELL VOLUME 94.1 fl (79.4-94.8); MONOCYTE # 0.78 x10^3/uL (0.24-0.86); MONOCYTE % 9.8 % (4.7-12.5); PLATELET COUNT 324 x10^3/uL (182-369); RDW 13.6 % (12.4-16.4)
[2024-09-14 20:18] LABS: CALCIUM 9.6 mg/dL (8.5-10.1)
[2024-09-14 20:19] LABS: ALBUMIN 3.6 g/dl (3.4-5.0); BLOOD UREA NITROGEN 8.7 mg/dL (7-18)
[2024-09-14 20:22] LABS: CREATININE 0.7 mg/dL (0.55-1.3)
[2024-09-14 20:23] LABS: BILIRUBIN,TOTAL 0.3 mg/dL (0.2-1); TOT PROT 7.2 g/dl (6.4-8.2)
[2024-09-14] MEDS: morphine CARPU-JECT 2 MG/1 ML DISP.SYRIN IVPUSH ONE (20:26)
[2024-09-14] MEDS ORDERED: MORPHINE SULFATE 2 MG/ML SYRINGE ONE (20:28)
[2024-09-14 20:46] LABS: PH,URINE 7.5 (5.0-8.0); URINE APPEARANCE CLEAR; URINE BILIRUBIN NEGATIVE (NEGATIVE); URINE COLOR YELLOW; URINE GLUCOSE (UA) NEGATIVE (NEGATIVE); URINE KETONE NEGATIVE (NEGATIVE); URINE LEUK ESTERASE NEGATIVE (NEGATIVE); URINE NITRITE NEGATIVE (NEGATIVE); URINE PROTEIN NEGATIVE (NEGATIVE); URINE UROBILINOGEN 0.2 mg/dL (0.2-1.0)
[2024-09-15 00:22] VITALS: BMI 22.6
[2024-09-15] MEDS: ONDANSETRON 4 MG/2 ML VIAL IVPUSH PRN (01:44)
[2024-09-15] MEDS: DEXTROSE 5%-0.45% SALINE 1,000 ML IV SCH (01:44)
[2024-09-15 08:05] LABS: ABSOLUTE IMMATURE GRANULOCYTES 0.03 x10^3/uL (0.0-0.031); BASOPHILS # 0.06 x10^3/uL (0.01-0.08); EOSINOPHIL % 1.1 % (0.7-5.8); EOSINOPHILS # 0.09 x10^3/uL (0.04-0.36); HEMATOCRIT 36.1 % (34.1-44.9); HEMOGLOBIN 11.9 g/dL (11.2-15.7); MEAN PLT VOLUME 9.8 fl (9.4-12.3); MONOCYTE # 0.64 x10^3/uL (0.24-0.86); MONOCYTE % 8.1 % (4.7-12.5); PLATELET COUNT 299 x10^3/uL (182-369); RDW 13.6 % (12.4-16.4)
[2024-09-15 08:32] LABS: POTASSIUM 3.8 mmol/L (3.5-5.1)
[2024-09-15 08:42] LABS: CALCIUM 9.4 mg/dL (8.5-10.1)
[2024-09-15 08:43] LABS: BLOOD UREA NITROGEN 7.8 mg/dL (7-18)
[2024-09-15 08:46] LABS: CREATININE 0.7 mg/dL (0.55-1.3)
[2024-09-15 11:20] LABS: ALBUMIN 3.4 g/dl (3.4-5.0)
[2024-09-15 11:22] LABS: BILIRUBIN,DIRECT 0.2 mg/dL (0.0-0.2)
[2024-09-15 11:25] LABS: BILIRUBIN,TOTAL 0.5 mg/dL (0.2-1); TOT PROT 6.8 g/dl (6.4-8.2)
[2024-09-15] MEDS ORDERED: TETRACAINE/BENZOCAINE/BUTAMBEN 20 GM SPR TP ONE (11:52)
[2024-09-15] MEDS ORDERED: LIPASE/PROTEASE/AMYLASE 36,000 UNIT CAPSULE PO SCH (13:00)
[2024-09-15] MEDS: GABAPENTIN 400 MG CAPSULE PO SCH (14:12)
[2024-09-15] MEDS: ASPIRIN COATED 81 MG TABLET.EC PO SCH (14:12)
[2024-09-15] MEDS: PANTOPRAZOLE 40 MG TABLET PO SCH (14:12)
[2024-09-15] MEDS: DULoxetine HCL 30 MG CAPSULE.DR PO SCH (14:13)
[2024-09-15] MEDS: INSULIN ASPART SLIDING SCALE (NOVOLOG) 1 VIAL SQ SCH (17:33)
[2024-09-15] MEDS ORDERED: ACETAMINOPHEN 325 MG TABLET (FP) PO PRN (17:48)
[2024-09-15] MEDS: IBUPROFEN 400 MG TABLET (FP) PO ONE (18:24)
[2024-09-15 18:31] VITALS: RESP 20
[2024-09-15] MEDS: ATORVASTATIN CA 40 MG TABLET (FP) PO SCH (21:30)
[2024-09-15] MEDS: URSODIOL 300 MG CAPSULE PO SCH (21:30)
[2024-09-15] MEDS: ONDANSETRON 4 MG/2 ML VIAL IVPUSH ONE (22:02)
[2024-09-16] MEDS: morphine SULFATE 4 MG/ML VIAL IVPUSH ONE ×2 (05:58→06:27)
[2024-09-16] MEDS: ACETAMINOPHEN 1000 MG/100 ML BAG IVPB ONE ×2 (06:00→06:25)
[2024-09-16 08:39] LABS: ABSOLUTE IMMATURE GRANULOCYTES 0.02 x10^3/uL (0.0-0.031); BASOPHILS # 0.05 x10^3/uL (0.01-0.08); EOSINOPHIL % 1.5 % (0.7-5.8); EOSINOPHILS # 0.11 x10^3/uL (0.04-0.36); HEMATOCRIT 38.8 % (34.1-44.9); HEMOGLOBIN 12.6 g/dL (11.2-15.7); MCHC 32.5 g/dl (32.2-35.5); MEAN CELL VOLUME 94.4 fl (79.4-94.8); MEAN PLT VOLUME 9.8 fl (9.4-12.3); MONOCYTE # 0.65 x10^3/uL (0.24-0.86); MONOCYTE % 9.1 % (4.7-12.5); PLATELET COUNT 295 x10^3/uL (182-369); RDW 13.7 % (12.4-16.4)
[2024-09-16 08:43] LABS: INR 1.15 (0.83-1.09); PROTHROMBIN TIME (PATIENT) 12.5 SEC (9.7-13.0)
[2024-09-16 09:17] LABS: ALBUMIN 3.4 g/dl (3.4-5.0); BILIRUBIN,TOTAL 0.8 mg/dL (0.2-1); BLOOD UREA NITROGEN 10.8 mg/dL (7-18); TOT PROT 6.9 g/dl (6.4-8.2)
[2024-09-16 09:19] LABS: CALCIUM 9.8 mg/dL (8.5-10.1)
[2024-09-16 09:20] LABS: CREATININE 0.7 mg/dL (0.55-1.3)
[2024-09-16 10:39] VITALS: TEMP 98.1
[2024-09-16 13:42] VITALS: BP 124/73; PULSE 99
== END 2024-09-16 15:04 | disposition home or self-care (01) | DRG 921 ==
LOC: JER 16:40 → JERBED 20:28 → J7W 23:46
PROVIDERS: ADMIT Internal Medicine; ATTEND Internal Medicine
PROC: 0FF98ZZ Fragmentation in Common Bile Duct, Via Natural or Artificial Opening Endoscopic (ICD-10-PCS; 2024-09-15)
PROC: 0FPB8DZ Removal of Intraluminal Device from Hepatobiliary Duct, Via Natural or Artificial Opening Endoscopic (ICD-10-PCS; principal; 2024-09-15 11:00)
DX: T85.858A Stenosis due to other internal prosthetic devices, implants and grafts, initial encounter (principal); K80.50 Calculus of bile duct without cholangitis or cholecystitis without obstruction; I10 Essential (primary) hypertension; E11.9 Type 2 diabetes mellitus without complications; M06.9 Rheumatoid arthritis, unspecified; E78.5 Hyperlipidemia, unspecified; M54.9 Dorsalgia, unspecified; M79.7 Fibromyalgia; R11.2 Nausea with vomiting, unspecified; F32.A Depression, unspecified; Y83.9 Surgical procedure, unspecified as the cause of abnormal reaction of the patient, or of later complication, without mention of misadventure at the time of the procedure
CPT/HCPCS: 36415; 71046-TC-FY; 74330-TC; 80048; 80053; 80076; 81003; 82962; 83690; 85025; 85610; 87086; 93005; 93010; 99285-25